=== PATIENT | male | born 1945 | race Caucasian/White ===

== ENCOUNTER 2018-05-15 09:36 | Inpatient (IN) ==
--- NOTE | 2018-05-15 09:52 | ED ---
HPI General Chief Complaint: Chest Pain Stated Complaint: cardiac Time Seen by Provider: 05/15/18 09:43 Source: patient, EMS, RN notes reviewed and old records reviewed Mode of arrival: EMS Limitations: no limitations History of Present Illness HPI narrative: 72-year-old male presents by ambulance with chest pain that started today. He was given aspirin and 1 spray of nitroglycerin and his pain went from a 10 to an 8. He denies any other concurrent complaints. He states he had a stress test 2 months ago that he failed but he was not wanting to get a cardiac catheterization. He states his last cardiac cath was in the 80s. He denies prior history of stent. He states he is anxious about getting cold during a heart catheterization. Quality is pressure. 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 MD complaint: chest pain STEMI Alert: No Onset (ago): hour(s) Duration: constant Onset: during rest Pain location: substernal Severity: moderate Severity scale (1-10): 8 Quality: tightness Pain radiation: none Related Data Home Medications Medication Instructions Recorded Confirmed allopurinol 300 mg PO DAILY 05/15/18 05/15/18 amlodipine 5 mg PO DAILY 05/15/18 05/15/18 atenolol 100 mg PO DAILY 05/15/18 05/15/18 glipizide 5 mg PO DAILY 05/15/18 05/15/18 losartan 100 mg PO DAILY 05/15/18 05/15/18 metformin 1,000 mg PO BID 05/15/18 05/15/18 pravastatin 20 mg PO DAILY 05/15/18 05/15/18 vitamin E 400 unit PO DAILY 05/15/18 05/15/18 Allergies Allergy/AdvReac Type Severity Reaction Status Date / Time penicillin G Allergy Severe Hives Verified 05/15/18 09:39 Review of Systems ROS: all other systems reviewed are negative [facility] Medical History Medical History Diabetes (Acute) Gout (Acute) HTN (hypertension) (Acute) High cholesterol (Acute) Surgical History Surgical History H/O cardiac catheterization (Acute) Social History Social History Second Hand Smoke Exposure: No Smoking Status: Former smoker How Often Do You Have a Drink Containing Alcohol: Never Recent Travel in [place] within the Last 8 Weeks: No Recent Out of Country Travel within the Last 8 Weeks: No Exam Narrative Exam Narrative: GENERAL: 72 y/o male in no apparent distress SKIN: Focused skin assessment warm/dry. HEAD: Atraumatic. Normocephalic. EYES: Pupils equal and round. No scleral icterus. No injection or drainage. ENT: No nasal bleeding or discharge. Mucous membranes pink and moist. NECK: Trachea midline. No JVD. CARDIOVASCULAR: Tachycardic rate and regular rhythm RESPIRATORY: No accessory muscle use. Clear to auscultation. Breath sounds equal bilaterally. GASTROINTESTINAL: Abdomen soft, non-tender, nondistended. MUSCULOSKELETAL: No obvious deformities. No clubbing. No cyanosis. No edema. NEUROLOGICAL: Awake and alert. No obvious cranial nerve deficits. Motor grossly within normal limits. Normal speech. PSYCHIATRIC: Appropriate mood and affect; insight and judgment normal. Course Reevaluation(s) Reevaluation #1: patient now agrees to cath if needed Time: 10:19 Reevaluation #2: dr st here, will dose with 10mg of cardizem and follow Reevaluation #3: Patient updated and agrees to admission. Consultations Consultation #1: dr st states keep npo and dose with 5,00 units of heparin and will see Consultation #2: dr bonilla agrees to admit Initial Documented Vital Signs Temperature 98.3 F 05/15/18 09:42 Pulse Rate 115 H 05/15/18 09:42 Respiratory Rate 18 05/15/18 09:42 Blood Pressure 155/97 H 05/15/18 09:42 Pulse Oximetry 96 05/15/18 09:42 Last Documented Vital Signs Temperature 98.3 F 05/15/18 09:42 Pulse Rate 115 H 05/15/18 09:42 Respiratory Rate 18 05/15/18 09:42 Blood Pressure 155/97 H 05/15/18 09:42 Pulse Oximetry 96 05/15/18 09:46 Critical Care Time Critical Care Time: Yes Total Critical Care Time: 31 Attestation: Aggregate critical care time was 31 minutes. Time to perform other separately billable procedures was not included in the critical care time. My time did not include minutes spent treating any other patients simultaneously or on activities that did not directly contribute to the patient's treatment. The services I provided to this patient were to treat and/or prevent clinically significant deterioration that could result in: mi, I provided critical care services requiring my management, as noted below: Chart data review, documentation time, medication orders and management, vital sign assessments/reviewing monitor data, ordering and reviewing lab tests, ordering and interpreting/reviewing x-rays and diagnostic studies, care of the patient and discussion of the patient with the admitting physicians. Medical Decision Making MDM Narrative Medical decision making narrative: Patient with chest pain at rest with known failed stress test. Will discuss with his web press operator and start workup while placing on nitroglycerin drip. Patient with ST depression. Medical Screen Exam Complete: Yes Emergency Medical Condition: Yes Differential Diagnosis Differential Diagnosis: AK, angina, gastritis Lab Data Lab results reviewed: Yes I reviewed the patient's lab results. Result diagrams: 05/15/18 10:00 05/15/18 10:00 Lab Results 05/15/18 05/15/18 05/15/18 Range/Units 10:00 10:00 10:00 WBC 8.4 (4.0-11.0) th/mm3 RBC 4.77 (4.50-5.90) mil/mm3 Hgb 14.0 (13.0-17.0) gm/dL Hct 41.8 (39.0-51.0) % MCV 87.6 (80.0-100.0) fL MCH 29.4 (27.0-34.0) pg MCHC 33.5 (32.0-36.0) % RDW 13.4 (11.6-17.2) % Plt Count 281 (150-450) th/mm3 MPV 8.4 (7.0-11.0) fL Neut % (Auto) 56.1 (16.0-70.0) % Lymph % (Auto) 27.4 (9.0-44.0) % [place] % (Auto) 13.6 H (0.0-8.0) % Eos % (Auto) 2.6 (0.0-4.0) % Baso % (Auto) 0.3 (0.0-2.0) % Neut # (Auto) 4.7 (1.8-7.7) th/mm3 Lymph # (Auto) 2.3 (1.0-4.8) th/mm3 [place] # (Auto) 1.1 H (0.0-0.9) th/mm3 Eos # (Auto) 0.2 (0.0-0.4) th/mm3 Baso # (Auto) 0.0 (0.0-0.2) th/mm3 WBC Differential . Differential Comment Auto diff final PT 10.5 (9.8-11.6) sec INR 1.0 Ratio APTT 24.0 L (24.3-30.1) sec Sodium 138 (136-145) meq/L Potassium 3.6 (3.5-5.1) meq/L Chloride 104 (98-107) meq/L Carbon Dioxide 22.1 (21.0-32.0) meq/L Anion Gap 12 (5-15) meq/L BUN 20 H (7-18) mg/dL Creatinine 1.22 (0.60-1.30) mg/dL Estimated GFR 59 L (>89) mL/min Random Glucose 212 H (74-106) mg/dL Calcium 9.0 (8.5-10.1) mg/dL Magnesium 1.8 (1.5-2.5) mg/dL Total Bilirubin 0.8 (0.2-1.0) mg/dL AST 18 (15-37) U/L ALT 23 (12-78) U/L Alkaline Phosphatase 69 (45-117) U/L Total Creatine Kinase 109 (39-308) U/L CK-MB (CK-2) 2.9 (0.5-3.6) ng/mL Troponin I 0.11 H (0.02-0.05) ng/mL Total Protein 7.6 (6.4-8.2) g/dL Albumin 3.7 (3.4-5.0) g/dL Imaging Data Attestation: I personally reviewed and interpreted this imaging study as follows : Radiologist's impression: Chest X-Ray 05/15/18 09:44 CONCLUSION: No acute findings. Discharge Plan Discharge Disposition Patient Disposition: 30 Still Patient Discharge Condition Condition: Fair Discharge Details Diagnosis: Unstable angina, Atrial tachycardia Physicians Team ED Provider: Ginette Newman Attending Provider: Mare Bonilla Status ED Status: Admitted Patient
[2018-05-15] MEDS ORDERED: Heparin 10,000 UNITS/10 ML Vial (for IV use) IV.PUSH STA (09:53)
[2018-05-15] MEDS: Nitroglycerin Drip Premix 50 MG/250 ML BOTTLE IV.CONT PRN (10:08)
--- NOTE | 2018-05-15 10:14 | XR ---
EXAM DATE: 05/15/2018 10:03 AM EDT AGE/SEX: 72 years / Male INDICATIONS: Chest pain. CLINICAL DATA: This is the patient's initial encounter. Patient reports that signs and symptoms have been present for 2 days and indicates a pain score of 8/10. MEDICAL/SURGICAL HISTORY: . 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 None. COMPARISON: POI, XR CHEST PA AND LAT, 11/23/2017. . FINDINGS: A single AP view of the chest demonstrates the lungs to be symmetrically aerated without evidence of mass, infiltrate or effusion. Stable linear scarring in the lingula. The cardiomediastinal contours are unremarkable. Osseous structures are intact. CONCLUSION: No acute findings. Electronically signed by: Urban Dickinson MD 05/15/2018 10:13 AM EDT
[2018-05-15 10:32] LABS: Baso % (Auto) 0.3 % (0.0-2.0); Eos # (Auto) 0.2 th/mm3 (0.0-0.4); Eos % (Auto) 2.6 % (0.0-4.0); Hematocrit 41.8 % (39.0-51.0); Lymph # (Auto) 2.3 th/mm3 (1.0-4.8); Lymph % (Auto) 27.4 % (9.0-44.0); Mean Corpuscular HGB Conc 33.5 % (32.0-36.0); Mean Corpuscular Hemoglobin 29.4 pg (27.0-34.0); Mean Corpuscular Volume 87.6 fL (80.0-100.0); Mean Platelet Volume 8.4 fL (7.0-11.0); Mono # (Auto) 1.1 th/mm3 (0.0-0.9); Mono % (Auto) 13.6 % (0.0-8.0); Neut # (Auto) 4.7 th/mm3 (1.8-7.7); Neut % (Auto) 56.1 % (16.0-70.0); Platelet Count 281 th/mm3 (150-450); Red Blood Count 4.77 mil/mm3 (4.50-5.90); Red Cell Distribution Width 13.4 % (11.6-17.2); White Blood Count 8.4 th/mm3 (4.0-11.0)
[2018-05-15 10:41] LABS: Prothrombin Time 10.5 sec (9.8-11.6)
[2018-05-15 10:52] LABS: Alanine Aminotransferase 23 U/L (12-78); Albumin 3.7 g/dL (3.4-5.0); Anion Gap 12 meq/L (5-15); Aspartate Aminotransferase 18 U/L (15-37); Blood Urea Nitrogen 20 mg/dL (7-18); Carbon Dioxide 22.1 meq/L (21.0-32.0); Chloride 104 meq/L (98-107); Glomerular Filtration Rate 59 mL/min (>89); Glucose,Random 212 mg/dL (74-106); Magnesium 1.8 mg/dL (1.5-2.5); Potassium 3.6 meq/L (3.5-5.1); Sodium 138 meq/L (136-145)
[2018-05-15 10:56] LABS: Alkaline Phosphatase 69 U/L (45-117); Creatine Kinase 109 U/L (39-308); Total Protein 7.6 g/dL (6.4-8.2); Troponin I 0.11 ng/mL (0.02-0.05)
[2018-05-15 11:08] LABS: Creatine Kinase MB 2.9 ng/mL (0.5-3.6)
[2018-05-15] MEDS ORDERED: Acetaminophen 325 MG Tablet PO PRN (11:46)
[2018-05-15] MEDS ORDERED: Bisacodyl 10 MG Supp RECTAL PRN (11:46)
[2018-05-15] MEDS ORDERED: Metoprolol Tartrate 25 MG Tablet PO ONE (13:00)
--- NOTE | 2018-05-15 13:11 | P.CONCA ---
History of Present Illness Service: Cardiology Reason for Consult: Chest pain Primary Care Provider: Wendie Sandoval Chief Complaint: Chest pain History of Present Illness: Pleasant 72-year-old well-known to our practice with a past history of chest pain, arm pain, and abdominal pain, hypertension, diabetes, and hyperlipidemia. He reports that he developed mid epigastric pain that radiated to bilateral arms. Patient reports that yesterday a.m. he had similar symptoms after taking his morning medication. On exam patient reports that chest pain has resolved, he is currently on a nitro drip. Denies chest pain or SOB. Patient thinks that symptoms could be related to 1 of his medications (amlodipine) he reports that every time after his AM medication he develops leg swelling and abdominal discomfort, including bloating and excessive gas. Patient had exercise stress test in our office November 2017 where he developed chest pain and arm pain with exercise he was strongly recommended to proceed with cardiac cath, however patient refused he also refused nuclear stress test at that time. Echocardiogram completed in office in October 2017 showed EF of 44%, LVH, LAE, mild MR, mild TR, and septal dyskinesis. On admission patient was tachycardic, on exam telemetry shows SR rate in the 80s. Review of Systems Cardiovascular: Reports chest pain Gastrointestinal: Reports abdominal pain, Reports bloating, Reports excessive passing of gas PMFSH - History History Provided By: Patient - Medical History Medical History: Medical History (Last Reviewed 05/15/18 @ 09:51 by Ginette Newman MD) Diabetes Gout HTN (hypertension) High cholesterol - Surgical History Surgical History: Surgical History (Last Reviewed 05/15/18 @ 09:51 by Ginette Newman MD) H/O cardiac catheterization - Tobacco History Second Hand Smoke Exposure: No Tobacco Use In Past 30 Days: No Smoking Status: Former smoker - Alcohol History How Often Do You Have a Drink Containing Alcohol: Never - Travel History Recent Travel in the [place] Within the Last 8 Weeks: No Recent Travel Out of the Country Within the Last 8 Weeks: No - Immunization History Tetanus Immunization: Unsure Hx Influenza Vaccine This Season: No Medications and Allergies Allergies Allergy/AdvReac Type Severity Reaction Status Date / Time penicillin G Allergy Severe Hives Verified 05/15/18 09:39 Home Medications Medication Instructions Recorded Confirmed Type allopurinol 300 mg PO DAILY 05/15/18 05/15/18 History amlodipine 5 mg PO DAILY 05/15/18 05/15/18 History atenolol 100 mg PO DAILY 05/15/18 05/15/18 History glipizide 5 mg PO DAILY 05/15/18 05/15/18 History losartan 100 mg PO DAILY 05/15/18 05/15/18 History metformin 1,000 mg PO BID 05/15/18 05/15/18 History pravastatin 20 mg PO DAILY 05/15/18 05/15/18 History vitamin E 400 unit PO DAILY 05/15/18 05/15/18 History Active Medications: Active Medications Acetaminophen (Tylenol) 650 mg PO Q4H PRN PRN Reason: Headache, fever, pain 1-4 Al Hydroxide/Mg Hydroxide (Milk Of Magnesia Liq) 30 ml PO Q12H PRN PRN Reason: Mild Constipation Aspirin (Ecotrin) 81 mg PO DAILY BARBI Atorvastatin Calcium (Lipitor) 40 mg PO HS BARBI Atorvastatin Calcium (Lipitor) 40 mg PO ONCE ONE Stop: 05/15/18 13:01 Bisacodyl (Dulcolax Supp) 10 mg RECTAL DAILY PRN PRN Reason: SEVERE CONSITIPATION Nitroglycerin/Dextrose (Nitroglycerin Drip Premix) 50 mg in 250 mls @ 1.5 mls/ hr IV.CONT TITRATE PRN; Protocol PRN Reason: See Protocol Last Admin: 05/15/18 10:08 Dose: 5 mcg/min, 1.5 mls/hr Lactulose (Lactulose Liq) 30 ml PO DAILY PRN PRN Reason: SEVERE CONSITIPATION Losartan Potassium (Cozaar) 100 mg PO DAILY BARBI Metoprolol Tartrate (Lopressor) 25 mg PO BID BARBI Metoprolol Tartrate (Lopressor) 25 mg PO ONCE ONE Stop: 05/15/18 13:01 Ondansetron HCl (Zofran Inj) 4 mg IV.PUSH Q6H PRN PRN Reason: NAUSEA OR VOMITING Sennosides (Senokot) 17.2 mg PO Q12H PRN PRN Reason: Moderate Constipation Sodium Chloride (Ns Flush) 2 ml IV.FLUSH UNSCH PRN PRN Reason: FLUSH AFTER USING IV ACCESS Exam Vital signs: Vital Signs 05/15/18 09:42 05/15/18 09:46 Temperature 98.3 F Pulse Rate 115 H Respiratory Rate 18 Blood Pressure 155/97 H Pulse Oximetry 96 96 Intake & Output 05/14/18 05/15/18 05/15/18 18:59 06:59 18:59 Weight 105.233 kg - Constitutional no acute distress - Routine HEENT Exam Head: Present: normocephalic, atraumatic Eye: Present: PERRL, normal accommodation ENT: Present: mucous membranes moist - Routine Neck Exam Present: supple - Routine Respiratory Exam Present: CTA bilaterally - Routine Cardiovascular Exam Present: RRR - Routine Abdominal Exam Present: soft - Routine Skin Exam Present: intact - Routine Neurological Exam Present: alert, oriented X3 Results 05/15/18 10:00 05/15/18 10:00 Cardiac Enzymes 05/15/18 Range/Units 10:00 AST 18 (15-37) U/L CK-MB (CK-2) 2.9 (0.5-3.6) ng/mL Troponin I 0.11 H (0.02-0.05) ng/mL Coagulation 05/15/18 Range/Units 10:00 PT 10.5 (9.8-11.6) sec APTT 24.0 L (24.3-30.1) sec CBC 05/15/18 Range/Units 10:00 WBC 8.4 (4.0-11.0) th/mm3 RBC 4.77 (4.50-5.90) mil/mm3 Hgb 14.0 (13.0-17.0) gm/dL Hct 41.8 (39.0-51.0) % Plt Count 281 (150-450) th/mm3 Neut # (Auto) 4.7 (1.8-7.7) th/mm3 Lymph # (Auto) 2.3 (1.0-4.8) th/mm3 [place] # (Auto) 1.1 H (0.0-0.9) th/mm3 Eos # (Auto) 0.2 (0.0-0.4) th/mm3 Baso # (Auto) 0.0 (0.0-0.2) th/mm3 Comprehensive Metabolic Panel 05/15/18 Range/Units 10:00 Sodium 138 (136-145) meq/L Potassium 3.6 (3.5-5.1) meq/L Chloride 104 (98-107) meq/L Carbon Dioxide 22.1 (21.0-32.0) meq/L BUN 20 H (7-18) mg/dL Creatinine 1.22 (0.60-1.30) mg/dL Calcium 9.0 (8.5-10.1) mg/dL AST 18 (15-37) U/L ALT 23 (12-78) U/L Alkaline Phosphatase 69 (45-117) U/L Total Protein 7.6 (6.4-8.2) g/dL Albumin 3.7 (3.4-5.0) g/dL Intake and Output 05/14/18 05/15/18 05/15/18 22:59 06:59 14:59 Other: Weight 105.233 kg Patient Weight 05/16/18 06:59 Weight 105.233 kg Assessment and Plan - Plan Assessment Chest pain New onset Atrial flutter HTN Hyperlipidemia Plan Currently on nitro drip-chest pain free. 1st troponin 0.11, 2nd pending. Pt is on ASA, BB and statin. Discussed possible cath tomorrow. Patient is reluctant? Patient received Cardizem 10mg on arrival. Telemetry currently shows SR rate in the 80s. Will hold off on anticoagulation at this time, pending possible heart cath. BP is elevated. Will resume home Losartan. On Statin. The patient was seen and evaluated by Dr. Anaya who completed a [id number] encounter physical exam and participated in care and management and decision making. The exam, history, and the medical decision-making described in the above note were completed with the assistance of the mid-level provider. I reviewed and agree with the findings presented. I attest that I had a [id number] encounter with the patient on the same day, and personally performed and documented my assessment and findings in the medical record. Pt has had a NSTEMI will proceed with cath, risks of cath stroke bleeding foreseen complications reviewed in detail. Will proceed in AM. Code Status: Full Code Discussed Condition With: Nurse and Dr. Newman.
[2018-05-15] MEDS ORDERED: Heparin Drip 25,000 UNIT/250 ML BAG IV.CONT PRN (16:33)
[2018-05-15] MEDS ORDERED: Sod Chloride 0.9% Inj 1,000 ML IV.CONT SCH (17:00)
[2018-05-15 17:30] LABS: Prothrombin Time 10.4 sec (9.8-11.6)
--- NOTE | 2018-05-15 17:57 | P.HP ---
History of Present Illness Service: Hospitalist Primary Care Physician: Wendie Sandoval Chief Complaint: Chest pain History of Present Illness: Ms. June is a pleasant 72 year old male with a history of HTN, DM, hyperlipidemia who presents to the ED due to epigastric discomfort with radiation to bilateral upper extremities. He denies any nausea, vomiting, sweating. He underwent cardiac stress test 2 months ago that was positive. He was offered cardiac catheterization. However he is anxious about catheterization and thus refused. Patient denies abdominal pain, changes in bowel or bladder habits. Upon arrival his troponin was 0.11. However subsequently his troponins were increased to 12.0 and 18.20. Cardiology evaluated patient and recommended heparin drip and cardiac catheterization on . Past medical history: Diabetes mellitus, hypertension, hyperlipidemia Past surgical history: Hernia surgery Social history: Patient denies using tobacco, alcohol, illicit drugs. Family history: Mother had liver cancer. Dad had stomach cancer. - Diagnosis (1) NSTEMI (non-ST elevated myocardial infarction) Inpatient Certification: I certify that the inpatient services were ordered in accordance with Medicare regulations governing the order. This includes certification that hospital inpatient services are reasonable and necessary and in the case of services not specified as inpatient-only under 42 CFR 419.22(n), that they are appropriately provided as inpatient services in accordance to with the 2-midnight benchmark under 43 CFR 412.3(e) Estimated Total Length of Stay (Days): 2 Plans for Post Hospital Care: Home [facility] - History History Provided By: Patient - Medical History Medical History: Medical History (Last Reviewed 05/15/18 @ 09:51 by Ginette Newman MD) Diabetes Gout HTN (hypertension) High cholesterol - Surgical History Surgical History: Surgical History (Last Reviewed 05/15/18 @ 09:51 by Ginette Newman MD) H/O cardiac catheterization - Tobacco History Second Hand Smoke Exposure: No Tobacco Use In Past 30 Days: No Smoking Status: Former smoker - Alcohol History How Often Do You Have a Drink Containing Alcohol: Never - Substance Use History Substance History: No History of Abuse - Travel History Recent Travel in the [place] Within the Last 8 Weeks: No Recent Travel Out of the Country Within the Last 8 Weeks: No - Immunization History Tetanus Immunization: Unsure Hx Influenza Vaccine This Season: No Medications and Allergies Active Medications: Active Medications Acetaminophen (Tylenol) 650 mg PO Q4H PRN PRN Reason: Headache, fever, pain 1-4 Al Hydroxide/Mg Hydroxide (Milk Of Magnesia Liq) 30 ml PO Q12H PRN PRN Reason: Mild Constipation Aspirin (Ecotrin) 81 mg PO DAILY [facility] Last Admin: 05/15/18 13:37 Dose: 81 mg Atorvastatin Calcium (Lipitor) 40 mg PO HS [facility] Bisacodyl (Dulcolax Supp) 10 mg RECTAL DAILY PRN PRN Reason: SEVERE CONSITIPATION Nitroglycerin/Dextrose (Nitroglycerin Drip Premix) 50 mg in 250 mls @ 1.5 mls/ hr IV.CONT TITRATE PRN; Protocol PRN Reason: See Protocol Last Titration: 05/15/18 15:50 Dose: 10 mcg/min, 3 mls/hr Heparin Sodium/Dextrose (Heparin/D5w 25,000 U/250 Ml) 25,000 unit in 250 mls @ 0 mls/hr IV.CONT TITRATE PRN; Protocol PRN Reason: Per Protocol Stop: 05/16/18 06:00 Last Admin: 05/15/18 17:21 Dose: 1,000 units/hr, 10 mls/hr Sodium Chloride (Ns Inj) 1,000 mls @ 30 mls/hr IV.CONT .Q24H [facility] Lactulose (Lactulose Liq) 30 ml PO DAILY PRN PRN Reason: SEVERE CONSITIPATION Losartan Potassium (Cozaar) 100 mg PO DAILY [facility] Metoprolol Tartrate (Lopressor) 25 mg PO BID [facility] Ondansetron HCl (Zofran Inj) 4 mg IV.PUSH Q6H PRN PRN Reason: NAUSEA OR VOMITING Sennosides (Senokot) 17.2 mg PO Q12H PRN PRN Reason: Moderate Constipation Sodium Chloride (Ns Flush) 2 ml IV.FLUSH UNSCH PRN PRN Reason: FLUSH AFTER USING IV ACCESS Allergies Allergy/AdvReac Type Severity Reaction Status Date / Time penicillin G Allergy Severe Hives Verified 05/15/18 09:39 Home Medications Medication Instructions Recorded Confirmed Type allopurinol 300 mg PO DAILY 05/15/18 05/15/18 History amlodipine 5 mg PO DAILY 05/15/18 05/15/18 History atenolol 100 mg PO DAILY 05/15/18 05/15/18 History glipizide 5 mg PO DAILY 05/15/18 05/15/18 History losartan 100 mg PO DAILY 05/15/18 05/15/18 History metformin 1,000 mg PO BID 05/15/18 05/15/18 History pravastatin 20 mg PO DAILY 05/15/18 05/15/18 History vitamin E 400 unit PO DAILY 05/15/18 05/15/18 History Exam Vital signs: Vital Signs 05/15/18 09:42 05/15/18 09:46 05/15/18 11:30 Temperature 98.3 F Pulse Rate 115 H 92 H Respiratory Rate 18 Blood Pressure 155/97 H 154/81 H Pulse Oximetry 96 96 98 05/15/18 11:46 05/15/18 13:56 05/15/18 14:00 Temperature Pulse Rate 78 77 78 Respiratory Rate 16 18 16 Blood Pressure 158/87 H 160/83 H 158/88 H Pulse Oximetry 95 97 05/15/18 16:00 Temperature 98.1 F Pulse Rate 74 Respiratory Rate 18 Blood Pressure 159/86 H Pulse Oximetry 98 Intake & Output 05/14/18 05/15/18 05/15/18 18:59 06:59 18:59 Output Total 450 / 450 Balance -450 / -450 Weight 105.233 kg Output: Urine 450 / 450 Narrative: GENERAL: This is a well-nourished, well-developed patient, in no apparent distress. SKIN: No rashes, ecchymoses or lesions. Warm and dry. HEAD: Atraumatic. Normocephalic. No temporal or scalp tenderness. EYES: Pupils equal round and reactive. No injection or drainage. ENT: Nose without bleeding, purulent drainage or septal hematoma. Airway patent. NECK: Trachea midline. No lymphadenopathy. Supple, nontender, no meningeal signs. CARDIOVASCULAR: Regular rate and rhythm without murmurs, gallops, or rubs. No JVD. RESPIRATORY: Clear to auscultation. Breath sounds equal bilaterally. No wheezes , rales, or rhonchi. GASTROINTESTINAL: Abdomen soft, non-tender, nondistended. No guarding. MUSCULOSKELETAL: Extremities without clubbing, cyanosis, or edema. NEUROLOGICAL: Awake and alert. Cranial nerves II through XII intact. No focal neurological deficits. Normal speech. Results - Labs CBC & Chem 7: 05/16/18 04:54 05/16/18 04:54 Labs: Laboratory Results - last 24 hr 05/15/18 05/15/18 05/15/18 10:00 10:00 10:00 WBC 8.4 RBC 4.77 Hgb 14.0 Hct 41.8 MCV 87.6 MCH 29.4 MCHC 33.5 RDW 13.4 Plt Count 281 MPV 8.4 Neut % (Auto) 56.1 Lymph % (Auto) 27.4 Gove % (Auto) 13.6 H Eos % (Auto) 2.6 Baso % (Auto) 0.3 Neut # (Auto) 4.7 Lymph # (Auto) 2.3 Gove # (Auto) 1.1 H Eos # (Auto) 0.2 Baso # (Auto) 0.0 WBC Differential . Differential Comment Auto diff final PT 10.5 INR 1.0 APTT 24.0 L Sodium 138 Potassium 3.6 Chloride 104 Carbon Dioxide 22.1 Anion Gap 12 BUN 20 H Creatinine 1.22 Estimated GFR 59 L POC Glucose Random Glucose 212 H Calcium 9.0 Magnesium 1.8 Total Bilirubin 0.8 AST 18 ALT 23 Alkaline Phosphatase 69 Total Creatine Kinase 109 CK-MB (CK-2) 2.9 Troponin I 0.11 H Total Protein 7.6 Albumin 3.7 05/15/18 05/15/18 05/15/18 15:21 16:16 16:54 WBC RBC Hgb Hct MCV MCH MCHC RDW Plt Count MPV Neut % (Auto) Lymph % (Auto) Gove % (Auto) Eos % (Auto) Baso % (Auto) Neut # (Auto) Lymph # (Auto) Gove # (Auto) Eos # (Auto) Baso # (Auto) WBC Differential Differential Comment PT 10.4 INR 1.0 APTT 25.0 Sodium Potassium Chloride Carbon Dioxide Anion Gap BUN Creatinine Estimated GFR POC Glucose 187 H Random Glucose Calcium Magnesium Total Bilirubin AST ALT Alkaline Phosphatase Total Creatine Kinase CK-MB (CK-2) Troponin I 12.00 H* Total Protein Albumin - Imaging Impressions Chest X-Ray 05/15/18 09:44 CONCLUSION: No acute findings. Caprini VTE Risk Assessment Caprini VTE Risk Assessment: Moderate/High Risk (score >= 2) Caprini Risk Assessment Model: Point Value = 1 Point Value = 2 Point Value = 3 Point Value = 5 Age 41-60 Minor surgery BMI > 25 kg/m2 Swollen legs Varicose veins or History of unexplained or recurrent spontaneous Oral contraceptives or hormone replacement Sepsis (< 1 month) Serious lung disease, including pneumonia (< 1 month) Abnormal pulmonary function Acute myocardial infarction Congestive heart failure (< 1 month) History of inflammatory bowel disease Medical patient at bed rest Age 61-74 Arthroscopic surgery Major open surgery (> 45 min) Laparoscopic surgery (> 45 min) Malignancy Confined to bed (> 72 hours) Immobilizing plaster cast Central venous access Age >= 75 History of VTE Family history of VTE Factor V Leiden Prothrombin [id number] Lupus anticoagulant Anticardiolipin antibodies Elevated serum homocysteine Heparin-induced thrombocytopenia Other congenital or acquired thrombophilia Stroke (< 1 month) Elective arthroplasty Hip, pelvis, or leg fracture Acute spinal cord injury (< 1 month) Prophylaxis Regimen: Total Risk Factor Score Risk Level Prophylaxis Regimen 0-1 Low Early ambulation 2 Moderate Order ONE of the following: *Sequential Compression Device (SCD) *Heparin 5000 units SQ BID 3-4 Higher Order ONE of the following medications: *Heparin 5000 units SQ TID *Enoxaparin/Lovenox 40 mg SQ daily (WT < 150 kg, CrCl > 30 mL/min) *Enoxaparin/Lovenox 30 mg SQ daily (WT < 150 kg, CrCl > 10-29 mL/min) *Enoxaparin/Lovenox 30 mg SQ BID (WT < 150 kg, CrCl > 30 mL/min) AND/OR *Sequential Compression Device (SCD) 5 or more Highest Order ONE of the following medications: *Heparin 5000 units SQ TID (Preferred with Epidurals) *Enoxaparin/Lovenox 40 mg SQ daily (WT < 150 kg, CrCl > 30 mL/min) *Enoxaparin/Lovenox 30 mg SQ daily (WT < 150 kg, CrCl > 10-29 mL/min) *Enoxaparin/Lovenox 30 mg SQ BID (WT < 150 kg, CrCl > 30 mL/min) AND *Sequential Compression Device (SCD) Assessment and Plan - Assessment (1) NSTEMI (non-ST elevated myocardial infarction) Code(s): I21.4 - Non-ST elevation (NSTEMI) myocardial infarction Status: Acute - Plan Mr. June is a pleasant 72-year-old male with a history of diabetes mellitus, hypertension, hyperlipidemia who presents to the emergency department due to chest discomfort and radiation to his arms. Troponins were elevated on admission. NSTEMI - troponins elevated to 0.11, 12, 18. - Heparin drip - Dr. Anaya plans to do cardiac cath on 05/16/2018 - Continue aspirin 81 mg daily, atorvastatin 40 mg nightly, losartan 100 mg daily. Continue Beta keiht. - Continue nitroglycerin. Hypertension -Continue losartan. We may switch beta-keith to carvedilol to have additional antihypertensive effect. Full code. Heparin drip.
[2018-05-15] MEDS: Metoprolol Tartrate 25 MG Tablet PO SCH (20:27)
--- NOTE | 2018-05-15 20:54 | ECG ---
Date Performed: 05/15/2018 Time Performed: 09:42:42 PTAGE: 72 years EKG: NORMAL Sinus rhythm WITH SINUS TACHYCARDIA NONSPECIFIC ST & T-WAVE ABNORMALITY ABNORMAL RHYTHM ECG PREVIOUS TRACING : 05/15/2018 09.41 Compared to previous tracing,sinus tachycardia sre new. The nonspecific ST-T wave changes are new except for the T-wave inversion in lead aVL which is infact re solved. The QT interval is now prolonged forthe heart rate. sop eclude electyrolyte imbalance and eva cardial disease. Clinical correlation is recommended. DOCTOR: Delfina Blanchard Interpretating Date/Time 05/15/2018 20:53:17
[2018-05-16 05:20] LABS: Hematocrit 43.2 % (39.0-51.0); Hemoglobin 14.6 gm/dL (13.0-17.0); Mean Corpuscular HGB Conc 33.8 % (32.0-36.0); Mean Corpuscular Hemoglobin 29.6 pg (27.0-34.0); Mean Corpuscular Volume 87.4 fL (80.0-100.0); Platelet Count 281 th/mm3 (150-450); Red Blood Count 4.95 mil/mm3 (4.50-5.90); Red Cell Distribution Width 13.6 % (11.6-17.2); White Blood Count 9.9 th/mm3 (4.0-11.0)
[2018-05-16 05:52] LABS: Calcium 8.9 mg/dL (8.5-10.1); Carbon Dioxide 25.9 meq/L (21.0-32.0); Potassium 4.1 meq/L (3.5-5.1)
[2018-05-16 06:02] LABS: Free T4 (Free Thyroxine) 1.12 ng/dL (0.76-1.46); Thyroid Stimulating Hormone 1.15 uIU/mL (0.358-3.740)
--- NOTE | 2018-05-16 08:22 | ECG ---
Date Performed: 05/15/2018 Time Performed: 14:50:16 PTAGE: 72 years EKG: Sinus rhythm WITH FIRST DEGREE AV BLOCK NONSPECIFIC ST & T-WAVE ABNORMALITY Compared to previous tracing the hilda ent is no longer tachycardic ABNORMAL ECG PREVIOUS TRACING : 05/15/2018 09.42 DOCTOR: Antonieta Yao Interpretating Date/Time 05/16/2018 08:22:24
--- NOTE | 2018-05-16 08:23 | ECG ---
Date Performed: 05/15/2018 Time Performed: 21:12:10 PTAGE: 72 years EKG: Sinus rhythm with 1st degree A-V block Possible inferior infarct - age undetermined Lateral ST-T changes are nons pecific Since the previous tracing, no significant change noted Abnormal ECG PREVIOUS TRACING : 05/15/18@14:50 DOCTOR: Antonieta Yao Interpretating Date/Time 05/16/2018 08:22:46
[2018-05-16] MEDS ORDERED: ALPRAZolam 0.25 MG Tablet PO ONE (10:00)
--- NOTE | 2018-05-16 10:18 | P.PNCA ---
Subjective Interval history: Patient lying in bed, denies any cardiac complaints overnight. Continues on Nitro drip, heparin drip DCd this AM, pending cardiac catheterization today. Discussed procedure on detail with patient. He reports feeling very anxious. Physical Exam Vital signs: Vital Signs 05/15/18 11:30 05/15/18 11:46 05/15/18 13:56 Temperature Pulse Rate 92 H 78 77 Respiratory Rate 16 18 Blood Pressure 154/81 H 158/87 H 160/83 H Pulse Oximetry 98 95 05/15/18 14:00 05/15/18 16:00 05/15/18 19:00 Temperature 98.1 F Pulse Rate 78 74 80 Respiratory Rate 16 18 Blood Pressure 158/88 H 159/86 H Pulse Oximetry 97 98 05/15/18 20:00 05/15/18 21:00 05/15/18 22:00 Temperature 98 F Pulse Rate 75 74 75 Respiratory Rate 20 Blood Pressure 151/90 H Pulse Oximetry 97 05/15/18 23:00 05/16/18 00:00 05/16/18 01:00 Temperature 97.8 F Pulse Rate 75 70 87 Respiratory Rate 20 Blood Pressure 159/94 H Pulse Oximetry 70 L 05/16/18 02:00 05/16/18 03:00 05/16/18 03:49 Temperature 98.4 F Pulse Rate 85 65 71 Respiratory Rate 20 Blood Pressure 138/82 Pulse Oximetry 96 05/16/18 05:00 05/16/18 05:56 05/16/18 07:00 Temperature Pulse Rate 81 69 70 Respiratory Rate Blood Pressure Pulse Oximetry 05/16/18 08:00 Temperature 98.7 F Pulse Rate 70 Respiratory Rate 15 Blood Pressure 158/92 H Pulse Oximetry 96 Intake & Output 05/15/18 05/16/18 05/16/18 18:59 06:59 18:59 Intake Total 960 / 960 Output Total 450 / 450 1300 / 1300 Balance -450 / -450 -340 / -340 Weight 105.233 kg Intake: Oral 960 / 960 Output: Urine 450 / 450 1300 / 1300 Other: Date of Last Bowel Movement 05/14/18 - Constitutional no acute distress - Routine HEENT Exam Head: Present: normocephalic, atraumatic Eye: Present: PERRL, normal accommodation ENT: Present: mucous membranes moist - Routine Neck Exam Present: supple - Routine Respiratory Exam Present: CTA bilaterally - Routine Cardiovascular Exam Present: RRR - Routine Abdominal Exam Present: soft - Routine Skin Exam Present: intact - Routine Neurological Exam Present: alert, oriented X3 - Detailed Neurological Exam: Coma Scale Eye Opening: Spontaneous Verbal Response: Oriented Motor Response: Obey commands Ron Coma Scale Total: 15 - Routine Psychiatric Exam Present: normal affect Assessment and Plan - Plan Assessment NSTEMI New onset Atrial flutter HTN Hyperlipidemia Plan Pending heart cath today. Continues on nitro drip. Isolated episode. Converted with Cardizem. Will hold off on anticoagulation at this time, pending cath today. BP continues to be elevated. Will increase metoprolol. On Statin. The patient was seen and evaluated by Dr. Anaya who completed a [id number] encounter physical exam and participated in care and management and decision making. The exam, history, and the medical decision-making described in the above note were completed with the assistance of the mid-level provider. I reviewed and agree with the findings presented. I attest that I had a [id number] encounter with the patient on the same day, and personally performed and documented my assessment and findings in the medical record. Pt has had a NSTEMI will proceed with cath, risks of cath stroke bleeding foreseen complications reviewed in detail. Will proceed in AM.
[2018-05-16] MEDS: Metoprolol Tartrate 50 MG Tablet PO SCH ×2 (10:20→22:10)
[2018-05-16] MEDS: Metoprolol Tartrate 25 MG Tablet PO SCH (10:21)
--- NOTE | 2018-05-16 12:07 | P.PN ---
Subjective Interval history: Follow-up for NSTEMI. Patient denies any chest pain, shortness of breath, fever or chills. However he feels anxious about cardiac catheterization. Physical Exam Vital signs: Vital Signs 05/15/18 13:56 05/15/18 14:00 05/15/18 16:00 Temperature 98.1 F Pulse Rate 77 78 74 Respiratory Rate 18 16 18 Blood Pressure 160/83 H 158/88 H 159/86 H Pulse Oximetry 97 98 05/15/18 19:00 05/15/18 20:00 05/15/18 21:00 Temperature 98 F Pulse Rate 80 75 74 Respiratory Rate 20 Blood Pressure 151/90 H Pulse Oximetry 97 05/15/18 22:00 05/15/18 23:00 05/16/18 00:00 Temperature 97.8 F Pulse Rate 75 75 70 Respiratory Rate 20 Blood Pressure 159/94 H Pulse Oximetry 70 L 05/16/18 01:00 05/16/18 02:00 05/16/18 03:00 Temperature Pulse Rate 87 85 65 Respiratory Rate Blood Pressure Pulse Oximetry 05/16/18 03:49 05/16/18 05:00 05/16/18 05:56 Temperature 98.4 F Pulse Rate 71 81 69 Respiratory Rate 20 Blood Pressure 138/82 Pulse Oximetry 96 05/16/18 07:00 05/16/18 08:00 05/16/18 10:00 Temperature 98.7 F Pulse Rate 70 70 68 Respiratory Rate 15 Blood Pressure 158/92 H Pulse Oximetry 96 05/16/18 11:00 05/16/18 11:45 Temperature 97.7 F Pulse Rate 84 Respiratory Rate 16 Blood Pressure 151/92 H Pulse Oximetry 97 97 Intake & Output 05/15/18 05/16/18 05/16/18 18:59 06:59 18:59 Intake Total 960 / 960 Output Total 450 / 450 1300 / 1300 Balance -450 / -450 -340 / -340 Weight 105.233 kg Intake: Oral 960 / 960 Output: Urine 450 / 450 1300 / 1300 Other: Date of Last Bowel Movement 05/14/18 Narrative: GENERAL: Alert, oriented 3, NAD. Somewhat anxious. SKIN: Warm and dry. HEAD: Normocephalic. EYES: No scleral icterus. No injection or drainage. NECK: Supple, trachea midline. No JVD or lymphadenopathy. CARDIOVASCULAR: Regular rate and rhythm without murmurs, gallops, or rubs. RESPIRATORY: Breath sounds equal bilaterally. No accessory muscle use. GASTROINTESTINAL: Abdomen soft, non-tender, nondistended. MUSCULOSKELETAL: No cyanosis, or edema. BACK: Nontender without obvious deformity. No CVA tenderness. Results - Labs CBC & Chem 7: 05/16/18 04:54 05/16/18 04:54 Laboratory Results - last 24 hr 05/15/18 05/15/18 05/15/18 15:21 16:16 16:54 WBC RBC Hgb Hct MCV MCH MCHC RDW Plt Count MPV PT 10.4 INR 1.0 APTT 25.0 Sodium Potassium Chloride Carbon Dioxide Anion Gap BUN Creatinine Estimated GFR POC Glucose 187 H Random Glucose Calcium Troponin I 12.00 H* TSH Free T4 05/15/18 05/15/18 05/16/18 20:47 22:25 00:18 WBC RBC Hgb Hct MCV MCH MCHC RDW Plt Count MPV PT INR APTT 27.9 Sodium Potassium Chloride Carbon Dioxide Anion Gap BUN Creatinine Estimated GFR POC Glucose 246 H Random Glucose Calcium Troponin I 18.20 H* TSH Free T4 05/16/18 05/16/18 05/16/18 00:19 04:54 04:54 WBC 9.9 RBC 4.95 Hgb 14.6 Hct 43.2 MCV 87.4 MCH 29.6 MCHC 33.8 RDW 13.6 Plt Count 281 MPV 8.0 PT INR APTT Sodium 138 Potassium 4.1 Chloride 103 Carbon Dioxide 25.9 Anion Gap 9 BUN 19 H Creatinine 1.19 Estimated GFR 60 L POC Glucose 227 H Random Glucose 244 H Calcium 8.9 Troponin I TSH 1.150 Free T4 1.12 05/16/18 05/16/18 05/16/18 04:54 05:47 11:26 WBC RBC Hgb Hct MCV MCH MCHC RDW Plt Count MPV PT INR APTT 28.7 Sodium Potassium Chloride Carbon Dioxide Anion Gap BUN Creatinine Estimated GFR POC Glucose 249 H 245 H Random Glucose Calcium Troponin I TSH Free T4 Assessment and Plan - Assessment (1) NSTEMI (non-ST elevated myocardial infarction) Code(s): I21.4 - Non-ST elevation (NSTEMI) myocardial infarction Status: Acute - Plan Mr. June is a pleasant 72-year-old male with a history of diabetes mellitus, hypertension, hyperlipidemia who presents to the emergency department due to chest discomfort and radiation to his arms. Troponins were elevated on admission. NSTEMI - troponins elevated to 0.11, 12, 18. - Heparin drip - Dr. Anaya plans to do cardiac cath today 05/16/2018 - Currently on 50mg BID. - Continue aspirin 81 mg daily, atorvastatin 40 mg nightly, losartan 100 mg daily. - Continue nitroglycerin. Hypertension -Continue losartan. We may consider switching beta-keith to carvedilol to have additional antihypertensive effect. Full code. Heparin drip.
[2018-05-16] MEDS ORDERED: Heparin/NS PF Inj 1,000 ML ONE (12:43)
[2018-05-16] MEDS ORDERED: fentaNYL Citrate Inj 100 MCG/2 ML Ampul ONE (12:55)
--- NOTE | 2018-05-16 14:15 | MP ---
cc: Kibmerly Anaya MD, Souheil MD DATE OF OPERATION: CARDIAC CATHETERIZATION REPORT INDICATIONS FOR CATHETERIZATION: Non-STEMI with a markedly elevated troponin, chest pain. CONSENT: Full informed consent was obtained for our procedure. The risks of , bleeding, myocardial perforation, aspiration, foreseen and unforeseen complications were reviewed. The patient fully appeared to understand the risks. PROCEDURES: 1. Sedation. 2. Cardiac catheterization. PROCEDURE IN DETAIL: The patient was draped and prepped in usual manner. Right femoral artery was entered using a micropuncture technique with ultrasound to establish the vessel patency via the 4-Cymraes sheath. Left and right coronary catheters were used to intubate the left and right coronaries. Pigtail catheter in the left ventricle. Multiple angiographic views were carried out. At the end of the catheterization procedure, all catheters and sheaths were removed. Manual pressure applied with good hemostasis achieved and the patient returned to her room in stable condition. SEDATION: Sedation was given including Versed and fentanyl. FINDINGS: HEMODYNAMICS: The aortic pressure was 136/72, mean of 98. The left ventricular pressure was 139 with a left ventricular end-diastolic pressure of 17. There was no evidence of significant gradient on pullback across the LV outflow tract and aortic valve. LEFT VENTRICULOGRAM: The overall left ventricular ejection fraction was reduced, estimated in the 40% range. There was evidence of inferior basilar akinesis. CORONARIES: Left main was a large and free of significant disease. The left anterior descending artery was calcified proximally. In the mid LAD was a complex 90% stenosis. The remainder of the vessel was large. There was also a large first diagonal branch that had a 90% stenosis proximally. In the proximal LAD was a further 90% stenosis. There was a large first obtuse marginal branch with an 80% long stenosis proximally and in the mid section a further 99% stenosis. The second obtuse marginal branch was a large vessel and was free of significant disease. There was evidence of filling of the distal right posterior descending artery via multiple collaterals from the left system. There was a very small intermediate ramus/very early obtuse marginal branch noted without significant disease. The right coronary artery was totally occluded proximally and filled distally via multiple injections. CONCLUSION: High-grade left anterior descending disease involving the proximal left anterior descending and the mid left anterior descending; high-grade obtuse marginal-1 disease, ostial disease of the obtuse marginal branch with high-grade mid obtuse marginal disease, total occlusion of the right coronary with filling of the distal right posterior descending artery. PLAN: Bypass surgery to the LAD, diagonal, first obtuse marginal branch and distal right/PDA. We will also, consider atrial flutter ablation and left atrial appendage ablation. Case discussed with Dr. Renita Leonard. MD ROB Barriga/jasvir , 01:46 PM , 01:56 PM
[2018-05-16] MEDS ORDERED: Iohexol 350 MG/ML 100 ML Vial (for Cath Lab) IV.SIG ONE (14:48)
[2018-05-16] MEDS ORDERED: Dextrose 50% in Water 50 ML Vial IV.PUSH PRN (16:30)
[2018-05-16] MEDS ORDERED: Chlorhexidine 4% Topical 120 APPLIC/120 ML Bottle TOPICAL SCH (16:45)
[2018-05-16] MEDS ORDERED: Sodium Chloride 0.9% Irr Bot 1,000 ML, Vancomycin Inj 1,000 MG IRRIGATION SCH ×2 (17:00)
[2018-05-16] MEDS ORDERED: Sodium Chlor 0.9% Inj 77.5 ML, Papaverine Inj 60 MG, Nitroglycerin Inj 100 MCG, dilTIAZ... IRRIGATION SCH ×3 (17:00)
[2018-05-16] MEDS ORDERED: Insulin Regular (For Infusion) 100 UNIT in Sodium Chlor 0.9% Inj 99 ML IV.CONT PRN ×4 (17:00)
[2018-05-16] MEDS ORDERED: Vancomycin Inj 1,750 MG in Sodium Chlor 0.9% Inj 500 ML IV.SIG SCH (17:00)
[2018-05-16 17:56] LABS: Activated Partial Thrombo Time 25.4 sec (24.3-30.1); INR 1.1 Ratio; Prothrombin Time 10.7 sec (9.8-11.6)
[2018-05-16] MEDS: Insulin NovoLOG Aspart Correctional Sugar Inj SQ SCH ×2 (19:00→23:29)
--- NOTE | 2018-05-16 20:54 | US ---
EXAM DATE: 05/16/2018 7:35 PM EDT AGE/SEX: 72 years / Male INDICATIONS: Syncope and weakness. CLINICAL DATA: This is the patient's initial encounter. Patient reports that signs and symptoms have been present for 1 day and indicates a pain score of 0/10. MEDICAL/SURGICAL HISTORY: Diabetes. Hypercholesterolemia. Hypertension. Gout. . Cardiac cat heterization. COMPARISON: No prior exams available for comparison. VELOCITY PARAMETERS: ICA/CCA Ratio: Right 0.8 , Left 0.6 ICA: Right 72.1 cm/sec, Left 60.3 cm/sec CCA: Right 85.5 cm/sec, Left 109.2 cm/sec ECA: Right 100.1 cm/sec, Left 72.0 cm/sec Vertebral: Right 36.7 cm/sec antegrade, Left 47.6 cm/sec antegrade FINDINGS: Right Carotid: Mild arteriosclerotic plaque is visualized.The waveforms are within normal limits. Left Carotid: Mild arteriosclerotic plaque is visualized. The waveforms are within normal limits. Other: None. CONCLUSION: 1. Right Internal Carotid Artery: Mild visible plaque without hemodynamically significant stenosis. 2. Left Internal Carotid Artery: Mild visible plaque without hemodynamically significant stenosis. Electronically signed by: Ru Simmons MD 05/16/2018 8:53 PM EDT
--- NOTE | 2018-05-16 20:55 | US ---
EXAM DATE: 05/16/2018 7:37 PM EDT AGE/SEX: 72 years / Male INDICATIONS: Pre operation cardiac surgery. CLINICAL DATA: This is the patient's initial encounter. Patient reports that signs and symptoms have been present for 1 day and indicates a pain score of 0/10. MEDICAL/SURGICAL HISTORY: Diabetes. Hypercholesterolemia. Hypertension. Gout. . Cardiac cat heterization. COMPARISON: [facility] [place] VENOUS DOPPLER LEG BI, 05/16/2018. . MEASUREMENTS: RIGHT THIGH: Proximal:__6 mm Mid:__ Non-visualized Distal:__Non-visualized LEFT THIGH: Proximal:__4 mm Mid:__3 mm Distal:__Non-visualized RIGHT CALF: Proximal:__Non-visualized Mid:__Non-visualized Distal:__Non-visualized LEFT CALF: Proximal:__2 mm Mid:__Non-visualized Distal:__Non-visualized FINDINGS: The venous system of the lower extremities are patent by color Doppler imaging. Measurements of the leg veins (in mm) are listed above. CONCLUSION: 1. The study is negative for lower extremity deep venous thrombosis. Electronically signed by: Ru Simmons MD 05/16/2018 8:54 PM EDT
--- NOTE | 2018-05-16 20:55 | US ---
EXAM DATE: 05/16/2018 7:38 PM EDT AGE/SEX: 72 years / Male INDICATIONS: Bilateral leg swelling. CLINICAL DATA: This is the patient's initial encounter. Patient reports that signs and symptoms have been present for 1 day and indicates a pain score of 0/10. MEDICAL/SURGICAL HISTORY: Diabetes. Hypercholesterolemia. Hypertension. Gout. . Cardiac cat heterization. COMPARISON: No prior exams available for comparison. TECHNIQUE: Venous ultrasound of both lower extremities was performed from the inguinal ligament to t he proximal calf. Real-time, color Doppler and spectral tracing, compression and augmentation techni ques were used. FINDINGS: Right Leg: Normal compression of the deep venous system from the inguinal region to the proximal samina f. No echogenic clot is seen. Normal response of the venous system to augmentation and respiration. Left Leg: Normal compression of the deep venous system from the inguinal region to the proximal calf . No echogenic clot is seen. Normal response of the venous system to augmentation and respiration. Other: None. CONCLUSION: 1. The study is negative for bilateral lower extremity deep venous thrombosis. Electronically signed by: Ru Simmons MD 05/16/2018 8:54 PM EDT
[2018-05-16] MEDS: Amiodarone 200 MG Tablet PO SCH (22:11)
[2018-05-16] MEDS: Mupirocin 2% Nasal Oint Topical Syringe EACH NARE SCH (22:11)
[2018-05-16 22:28] LABS: Hemoglobin A1c 9.2 % (4.3-6.0)
[2018-05-17] MEDS: Insulin NovoLOG Aspart Correctional Sugar Inj SQ SCH ×5 (04:06→21:26)
[2018-05-17 04:25] LABS: Hematocrit 40.7 % (39.0-51.0); Hemoglobin 13.9 gm/dL (13.0-17.0); Mean Corpuscular Hemoglobin 29.5 pg (27.0-34.0); Mean Corpuscular Volume 86.7 fL (80.0-100.0); Mean Platelet Volume 7.9 fL (7.0-11.0); Platelet Count 288 th/mm3 (150-450); Red Cell Distribution Width 13.3 % (11.6-17.2)
--- NOTE | 2018-05-17 08:52 | XR ---
EXAM DATE: 05/17/2018 8:47 AM EDT AGE/SEX: 72 years / Male INDICATIONS: Evaluate for pneumonia, pneumothorax, or communicable disease. Pre-op cardiac surgery. CLINICAL DATA: This is the patient's initial encounter. Patient reports that signs and symptoms have been present for 1 day and indicates a pain score of 3/10. MEDICAL/SURGICAL HISTORY: . Diabetes. Hypercholesterolemia. Hypertension. Gout. . Cardiac cath eterization. COMPARISON: C, CHEST 1V SINGLE AP, 05/15/2018. . FINDINGS: Discoid atelectasis and/or fibrotic scarring is noted within the left lung base. The heart is normal. The pulmonary vascular pattern is normal. The right lung is clear. Mild degenerative changes and sco liosis of the thoracic spine are noted. CONCLUSION: Discoid atelectasis and/or fibrotic scarring within the left lung base. Electronically signed by: Xander Wood MD 05/17/2018 8:50 AM EDT
[2018-05-17] MEDS: Amiodarone 200 MG Tablet PO SCH ×2 (09:17→21:26)
[2018-05-17] MEDS: Metoprolol Tartrate 50 MG Tablet PO SCH ×2 (09:17→21:26)
[2018-05-17] MEDS: Mupirocin 2% Nasal Oint Topical Syringe EACH NARE SCH ×2 (09:18→21:27)
[2018-05-17] MEDS: amLODIPine 5 MG Tablet PO SCH (09:18)
--- NOTE | 2018-05-17 12:04 | P.PNCV ---
- Note Subjective/Hospital Course: pt seen and evaluated full consult to follow sts data discussed with pt RISK SCORES About the STS Risk Calculator Procedure: CAB Only Risk of Mortality: 1.559% Morbidity or Mortality: 16.666% Long Length of Stay: 7.165% Short Length of Stay: 31.518% Permanent Stroke: 1.239% Prolonged Ventilation: 10.139% DSW Infection: 0.656% Renal Failure: 4.952% Reoperation: 5.835% Objective: Vital Signs - 24 hr 05/16/18 13:00 05/16/18 14:00 05/16/18 15:00 Temperature Pulse Rate 84 68 78 Respiratory Rate Blood Pressure Pulse Oximetry 05/16/18 16:00 05/16/18 17:00 05/16/18 18:00 Temperature Pulse Rate 100 H 84 80 Respiratory Rate 20 Blood Pressure Pulse Oximetry 05/16/18 19:00 05/16/18 19:51 05/16/18 20:00 Temperature 98.2 F 98.0 F Pulse Rate 80 81 90 Respiratory Rate 18 18 Blood Pressure 137/88 145/84 H Pulse Oximetry 94 L 95 05/16/18 21:00 05/16/18 22:00 05/16/18 23:00 Temperature Pulse Rate 86 93 H 69 Respiratory Rate Blood Pressure Pulse Oximetry 05/16/18 23:51 05/16/18 23:56 05/17/18 00:00 Temperature 98.2 F Pulse Rate 68 82 Respiratory Rate 18 Blood Pressure 127/72 Pulse Oximetry 94 L 94 L 05/17/18 01:00 05/17/18 02:00 05/17/18 03:00 Temperature 98.6 F Pulse Rate 80 100 H 79 Respiratory Rate 18 Blood Pressure 144/76 H Pulse Oximetry 98 05/17/18 04:00 05/17/18 05:00 05/17/18 06:00 Temperature Pulse Rate 79 71 79 Respiratory Rate Blood Pressure Pulse Oximetry 05/17/18 07:00 05/17/18 08:00 05/17/18 09:00 Temperature 98.0 F Pulse Rate 75 72 78 Respiratory Rate 16 16 Blood Pressure 185/93 H Pulse Oximetry 95 94 L 05/17/18 10:00 05/17/18 11:00 Temperature 98.0 F Pulse Rate 75 69 Respiratory Rate 17 Blood Pressure 128/74 Pulse Oximetry Labs: Laboratory Results - last 12 hr 05/17/18 05/17/18 05/17/18 03:46 04:00 07:47 WBC 10.0 RBC 4.70 Hgb 13.9 Hct 40.7 MCV 86.7 MCH 29.5 MCHC 34.0 RDW 13.3 Plt Count 288 MPV 7.9 POC Glucose 265 H 221 H 05/17/18 11:00 WBC RBC Hgb Hct MCV MCH MCHC RDW Plt Count MPV POC Glucose 374 H Result Diagrams: 05/17/18 04:00 05/16/18 04:54 - Plan (1) Diabetes (2) Hypertension Patient is undergoing CABG plus MAZE procedure for Atrial Flutter. STS riisk does not account for additional procedure. (1) Diabetes Qualifiers: Diabetes mellitus type: type 2 (2) Hypertension Qualifiers: Hypertension type: essential hypertension Qualified Code(s): I10 - Essential (primary) hypertension
--- NOTE | 2018-05-17 12:22 | MB ---
cc: Ana Lilia Vu DATE: 05/17/2018 HISTORY OF PRESENT ILLNESS: A 72-year-old male patient of Dr. Kip Walker and Dr. Anaya. Presented to the emergency room with chest pain, brought in by ambulance. apparently was admitted on 05/15/2018. Prior to that, he had some epigastric pain that radiated to both of his arms. Initially thought that it may be related to one of his medications, but also developed some leg swelling and some abdominal discomfort. He has undergone stress test in Dr. Anaya's office in 11/2017. Initially was referred to have a cardiac catheterization, but refused at that time. He also refused a nuclear stress test. He had an echocardiogram in 10/2017 which showed an ejection fraction of 44%, left ventricular hypertrophy, left atrial enlargement, mild mitral regurgitation, mild tricuspid regurgitation. On this admission, his EKG showed some ST and T-wave abnormality, first-degree AV block. Troponins peaked at 18.20. He was ruled in for a non-STEMI. Underwent cardiac catheterization by Dr. Anaya which showed mid LAD 90% stenosed. The first diagonal had a 90% stenosis proximally. The proximal LAD had a 90% stenosis. The obtuse marginal had an 80% stenosis proximally, and also in the mid section had a 99% stenosis. There was total occlusion of the right coronary artery with filling of the distal right PDA. We were consulted to evaluate for coronary artery bypass grafting. The patient also was found to have some atrial flutter and was recommended for left atrial appendage ablation and/or maze procedure. PAST MEDICAL HISTORY: Includes diabetes, gout, hypertension, hyperlipidemia. PAST SURGICAL HISTORY: Include a cardiac catheterization in 1981. He had right inguinal hernia repair, tonsillectomy. ALLERGIES: PENICILLIN. HOME MEDICATIONS: 1. Allopurinol. 2. Amlodipine. 3. Atenolol. 4. Glipizide. 5. Losartan. 6. Metformin. 7. Pravachol. 8. Vitamin E. FAMILY HISTORY: Unremarkable. SOCIAL HISTORY: The patient is , 2 children. Retired from the [employer]. Smoked for about 15 to 20 years, quit in the . No alcohol. Does live alone. REVIEW OF SYSTEMS: GENERAL: No night sweats, fever, heat and cold intolerance. SKIN: No psoriasis, itching or hives. HEENT: No blurred vision, hearing loss. RESPIRATORY: No cough, shortness of breath. CARDIOVASCULAR: As above in the HPI. GASTROINTESTINAL: No diarrhea or vomiting. GENITOURINARY: No burning, frequency, urgency. CENTRAL NERVOUS SYSTEM: No history of TIA, CVA,seizure disorder. ENDOCRINOLOGY: Positive for diabetes. PHYSICAL EXAMINATION: VITAL SIGNS: Blood pressure 128/70, heart rate of 70, afebrile. GENERAL: The patient is awake, alert, in no acute distress. HEENT: Head is normocephalic, atraumatic. Pupils equal and reactive. Oral mucosa pink, moist. NECK: Supple. No JVD. HEART: Sounds S1, S2. Regular rate and rhythm. No audible rubs, murmurs, or gallops. LUNGS: Clear to auscultation. No wheezes, rales, or rhonchi. ABDOMEN: Soft, nontender. No masses or organomegaly. EXTREMITIES: No cyanosis, clubbing, or edema. LABORATORY WORK: Shows hemoglobin 13, hematocrit of 40, white cell count of 10, platelet count of 288. INR 1.1. Sodium 138, potassium 4.1, BUN of 19, creatinine 1.19, glucose 245. Hemoglobin A1c of 9.2. TSH of 1.15. MRSA screen nondetected. Ultrasound of the lower extremities reveals no deep vein thrombosis. Carotid ultrasounds are unremarkable. Chest x-ray unremarkable. IMPRESSION: This is a 72-year-old male admitted with chest pain, ruled in for a [id number] myocardial infarction, ejection fraction 40%, multivessel coronary artery disease. The cardiac films have been evaluated by Dr. Renita Leonard. Plan will be for coronary artery bypass grafting x4 with a maze procedure. The patient is agreeable to proceed. PLAN: At this time for surgery on , second case. STS data will be documented in the electronic record. ELIER Berger , 11:58 AM , 12:09 PM
--- NOTE | 2018-05-17 16:13 | P.PN ---
Subjective Interval history: Follow up for NSTEMI, high grade LAD disease, multivessel CAD. Patient is currently doing well. He is scheduled for CABG tomorrow morning. No CP, SOB, fever, chills. Physical Exam Vital signs: Vital Signs 05/16/18 17:00 05/16/18 18:00 05/16/18 19:00 Temperature Pulse Rate 84 80 80 Respiratory Rate Blood Pressure Pulse Oximetry 05/16/18 19:51 05/16/18 20:00 05/16/18 21:00 Temperature 98.2 F 98.0 F Pulse Rate 81 90 86 Respiratory Rate 18 18 Blood Pressure 137/88 145/84 H Pulse Oximetry 94 L 95 05/16/18 22:00 05/16/18 23:00 05/16/18 23:51 Temperature 98.2 F Pulse Rate 93 H 69 68 Respiratory Rate 18 Blood Pressure 127/72 Pulse Oximetry 94 L 05/16/18 23:56 05/17/18 00:00 05/17/18 01:00 Temperature Pulse Rate 82 80 Respiratory Rate Blood Pressure Pulse Oximetry 94 L 05/17/18 02:00 05/17/18 03:00 05/17/18 04:00 Temperature 98.6 F Pulse Rate 100 H 79 79 Respiratory Rate 18 Blood Pressure 144/76 H Pulse Oximetry 98 05/17/18 05:00 05/17/18 06:00 05/17/18 07:00 Temperature 98.0 F Pulse Rate 71 79 75 Respiratory Rate 16 Blood Pressure 185/93 H Pulse Oximetry 95 05/17/18 08:00 05/17/18 09:00 05/17/18 10:00 Temperature Pulse Rate 72 78 75 Respiratory Rate 16 Blood Pressure Pulse Oximetry 94 L 05/17/18 11:00 05/17/18 13:00 05/17/18 14:00 Temperature 98.0 F Pulse Rate 69 66 60 Respiratory Rate 17 Blood Pressure 128/74 Pulse Oximetry 05/17/18 15:00 Temperature 98.3 F Pulse Rate 90 Respiratory Rate 17 Blood Pressure 122/80 Pulse Oximetry 100 Intake & Output 05/16/18 05/17/18 05/17/18 18:59 06:59 18:59 Intake Total 240 / 240 480 / 480 Output Total 600 / 600 400 / 400 Balance -360 / -360 80 / 80 Weight 103.5 kg Intake: Oral 240 / 240 480 / 480 Output: Urine 600 / 600 400 / 400 Other: Date of Last Bowel Movement 05/14/18 Narrative: GENERAL: Alert, oriented 3, NAD. SKIN: Warm and dry. HEAD: Normocephalic. EYES: No scleral icterus. No injection or drainage. NECK: Supple, trachea midline. No JVD or lymphadenopathy. CARDIOVASCULAR: Regular rate and rhythm without murmurs, gallops, or rubs. RESPIRATORY: Breath sounds equal bilaterally. No accessory muscle use. GASTROINTESTINAL: Abdomen soft, non-tender, nondistended. MUSCULOSKELETAL: No cyanosis, or edema. BACK: Nontender without obvious deformity. No CVA tenderness. Results - Labs CBC & Chem 7: 05/17/18 04:00 05/16/18 04:54 Laboratory Results - last 24 hr 05/16/18 05/16/18 05/16/18 17:30 17:30 17:30 WBC RBC Hgb Hct MCV MCH MCHC RDW Plt Count MPV PT 10.7 INR 1.1 APTT 25.4 POC Glucose Hemoglobin A1c 9.2 H Nasal Screen MRSA (PCR) Blood Type A Positive Blood Type Recheck Required Antibody Screen Negative MTS Gel Crossmatch See Detail Bld Prod Order Comment Not Reportable 05/16/18 05/16/18 05/16/18 18:27 18:30 23:13 WBC RBC Hgb Hct MCV MCH MCHC RDW Plt Count MPV PT INR APTT POC Glucose 227 H 276 H Hemoglobin A1c Nasal Screen MRSA (PCR) Not detected Blood Type Blood Type Recheck Antibody Screen MTS Gel Crossmatch Bld Prod Order Comment 05/17/18 05/17/18 05/17/18 03:46 04:00 07:47 WBC 10.0 RBC 4.70 Hgb 13.9 Hct 40.7 MCV 86.7 MCH 29.5 MCHC 34.0 RDW 13.3 Plt Count 288 MPV 7.9 PT INR APTT POC Glucose 265 H 221 H Hemoglobin A1c Nasal Screen MRSA (PCR) Blood Type Blood Type Recheck Antibody Screen MTS Gel Crossmatch Bld Prod Order Comment 05/17/18 11:00 WBC RBC Hgb Hct MCV MCH MCHC RDW Plt Count MPV PT INR APTT POC Glucose 374 H Hemoglobin A1c Nasal Screen MRSA (PCR) Blood Type Blood Type Recheck Antibody Screen MTS Gel Crossmatch Bld Prod Order Comment - Imaging Impressions Carotid Doppler Study 05/16/18 16:33 CONCLUSION: 1. Right Internal Carotid Artery: Mild visible plaque without hemodynamically significant stenosis. 2. Left Internal Carotid Artery: Mild visible plaque without hemodynamically significant stenosis. Lower Extremity Ultrasound 05/16/18 16:33 CONCLUSION: 1. The study is negative for lower extremity deep venous thrombosis. Venous Doppler Study 05/16/18 16:33 CONCLUSION: 1. The study is negative for bilateral lower extremity deep venous thrombosis. Chest X-Ray 05/17/18 16:33 CONCLUSION: Discoid atelectasis and/or fibrotic scarring within the left lung base. Assessment and Plan - Assessment (1) NSTEMI (non-ST elevated myocardial infarction) Code(s): I21.4 - Non-ST elevation (NSTEMI) myocardial infarction Status: Acute - Plan Mr. June is a pleasant 72-year-old male with a history of diabetes mellitus, hypertension, hyperlipidemia who presents to the emergency department due to chest discomfort and radiation to his arms. Troponins were elevated on admission. NSTEMI - troponins elevated to 0.11, 12, 18. Multivessel CAD High grade LAD disease - CV surgery following. CABG in the morning. - Continue Amiodarone 400mg Q12hrs - Currently on Metoprolol 50mg BID. - Continue aspirin 81 mg daily, atorvastatin 40 mg nightly - Continue nitroglycerin. Diabetes mellitus Hypertension - Levemir 15 units BID, sliding scale insulin. - Continue Amlodipine 5mg Qday. Full code. Ambulation.
[2018-05-17 19:33] LABS: Bacteria,Urine Many /hpf; Bilirubin,Urine Negative (Negative); Clarity,Urine Cloudy (Clear); Color,Urine Yellow (Yellw/Straw); Glucose,Urine (UA) 500 or Greater mg/dL (Negative); Leukocyte Esterase,Urine Large (Negative); Nitrite,Urine Positive (Negative); Specific Gravity,Urine 1.023 (1.002-1.035)
[2018-05-17] MEDS: Insulin Detemir Inj 1,000 UNIT/10 ML Vial SQ SCH (21:26)
[2018-05-17] MEDS ORDERED: Chlorhexidine Gluconate 2% 1 Pack (2 Cloths) TOPICAL ONE (23:14)
[2018-05-17] MEDS ORDERED: Sodium Chlor 0.9% Inj 500 ML IV.SIG SCH (23:45)
[2018-05-18] MEDS: Metoprolol Tartrate 25 MG Tablet PO SCH (05:19)
[2018-05-18] MEDS: Insulin NovoLOG Aspart Correctional Sugar Inj SQ SCH ×5 (06:14→23:16)
[2018-05-18] MEDS: Amiodarone 200 MG Tablet PO SCH ×2 (08:31→21:25)
[2018-05-18] MEDS: Mupirocin 2% Nasal Oint Topical Syringe EACH NARE SCH ×2 (08:31→21:25)
[2018-05-18] MEDS: amLODIPine 5 MG Tablet PO SCH (08:31)
[2018-05-18] MEDS: Insulin Detemir Inj 1,000 UNIT/10 ML Vial SQ SCH ×2 (08:31→23:16)
[2018-05-18] MEDS: Metoprolol Tartrate 50 MG Tablet PO SCH ×2 (08:31→21:25)
--- NOTE | 2018-05-18 15:24 | P.PNCV ---
- Note Subjective/Hospital Course: A 72-year-old male patient of Dr. Kip Walker and Dr. Anaya. Presented to the emergency room with chest pain, brought in by ambulance. apparently was admitted on 05/15/2018. Prior to that, he had some epigastric pain that radiated to both of his arms. Initially thought that it may be related to one of his medications, but also developed some leg swelling and some abdominal discomfort. He has undergone stress test in Dr. Anaya's office in 11/2017. Initially was referred to have a cardiac catheterization, but refused at that time. He also refused a nuclear stress test. He had an echocardiogram in 2017 which showed an ejection fraction of 44%, left ventricular hypertrophy, left atrial enlargement, mild mitral regurgitation, mild tricuspid regurgitation. On this admission, his EKG showed some ST and T-wave abnormality , first-degree AV block. Troponins peaked at 18.20. He was ruled in for a non- STEMI. Underwent cardiac catheterization by Dr. Anaya which showed mid LAD 90 % stenosed. The first diagonal had a 90% stenosis proximally. The proximal LAD had a 90% stenosis. The obtuse marginal had an 80% stenosis proximally, and also in the mid section had a 99% stenosis. There was total occlusion of the right coronary artery with filling of the distal right PDA. We were consulted to evaluate for coronary artery bypass grafting. The patient also was found to have some atrial flutter and was recommended for left atrial appendage ablation and/or maze procedure. PAST MEDICAL HISTORY: Includes diabetes, gout, hypertension, hyperlipidemia. 05/18 OR date changed to tomorrow on azactam for UTI BGM with some improvement was on lantus 52units at night at home Objective: Vital Signs - 24 hr 05/17/18 16:18 05/17/18 17:20 05/17/18 19:00 Temperature 98.0 F Pulse Rate 86 80 77 Respiratory Rate 18 Blood Pressure 164/90 H Pulse Oximetry 96 05/17/18 20:00 05/17/18 20:55 05/17/18 21:00 Temperature Pulse Rate 76 74 Respiratory Rate Blood Pressure Pulse Oximetry 96 05/17/18 22:00 05/17/18 23:00 05/18/18 00:00 Temperature 97.9 F Pulse Rate 98 H 69 62 Respiratory Rate 18 Blood Pressure 130/74 Pulse Oximetry 96 05/18/18 01:00 05/18/18 02:00 05/18/18 03:00 Temperature 97.8 F Pulse Rate 58 L 60 76 Respiratory Rate 16 Blood Pressure 170/65 H Pulse Oximetry 96 05/18/18 04:00 05/18/18 05:00 05/18/18 06:00 Temperature Pulse Rate 70 70 70 Respiratory Rate Blood Pressure Pulse Oximetry 05/18/18 07:00 05/18/18 08:00 05/18/18 08:50 Temperature 98.3 F Pulse Rate 64 67 Respiratory Rate 16 Blood Pressure 169/91 H Pulse Oximetry 96 97 05/18/18 09:00 05/18/18 10:00 05/18/18 11:00 Temperature 98.2 F Pulse Rate 73 76 66 Respiratory Rate 16 Blood Pressure 129/79 Pulse Oximetry 96 05/18/18 12:00 05/18/18 13:00 05/18/18 14:00 Temperature Pulse Rate 77 79 72 Respiratory Rate Blood Pressure Pulse Oximetry 05/18/18 15:00 Temperature 98.4 F Pulse Rate 78 Respiratory Rate 16 Blood Pressure 125/74 Pulse Oximetry 96 GENERAL: SKIN: Warm and dry. HEAD: Normocephalic. EYES: No scleral icterus. No injection or drainage. NECK: Supple, trachea midline. No JVD or lymphadenopathy. CARDIOVASCULAR: Regular rate and rhythm without murmurs, gallops, or rubs. RESPIRATORY: Breath sounds equal bilaterally. No accessory muscle use. GASTROINTESTINAL: Abdomen soft, non-tender, nondistended. MUSCULOSKELETAL: No cyanosis, or edema. BACK: Nontender without obvious deformity. No CVA tenderness. Labs: Laboratory Results - last 12 hr 05/16/18 05/17/18 05/18/18 17:30 18:45 05:29 POC Glucose 247 H Urine Color Yellow Urine Clarity Cloudy H Urine pH 5.0 Ur Specific [place] 1.023 Urine Protein Negative Urine Glucose (UA) 500 or greater Urine Ketones Negative Urine Occult Blood Small H Urine Nitrate Positive H Urine Bilirubin Negative Urine Urobilinogen Less than 2 Ur Leukocyte Esterase Large H Urine RBC 3 Urine WBC 151 H Urine WBC Clumps Few H Urine Bacteria Many H Micro UA Comment Culture indicated Urine Culture Comments Culture indicated Blood Type A Positive Blood Type Recheck Required Antibody Screen Negative MTS Gel Crossmatch See Detail 05/18/18 05/18/18 07:36 11:55 POC Glucose 272 H 279 H Urine Color Urine Clarity Urine pH Ur Specific [place] Urine Protein Urine Glucose (UA) Urine Ketones Urine Occult Blood Urine Nitrate Urine Bilirubin Urine Urobilinogen Ur Leukocyte Esterase Urine RBC Urine WBC Urine WBC Clumps Urine Bacteria Micro UA Comment Urine Culture Comments Blood Type Blood Type Recheck Antibody Screen MTS Gel Crossmatch Result Diagrams: 05/17/18 04:00 05/16/18 04:54 Telemetry: NSR - Plan (1) Diabetes (2) Hypertension (6) CAD (coronary artery disease), [place] coronary artery (7) UTI (urinary tract infection) Plan: on azactam (1) Diabetes Qualifiers: Diabetes mellitus type: type 2 (2) Hypertension Qualifiers: Hypertension type: essential hypertension Qualified Code(s): I10 - Essential (primary) hypertension (6) CAD (coronary artery disease), [place] coronary artery Qualifiers: [place] vs. transplanted heart: [place] heart
--- NOTE | 2018-05-18 22:59 | P.PN ---
Subjective Interval history: Follow up for NSTEMI, high grade LAD disease, multivessel CAD, DM. Patient is doing well. CABG surgery was re-scheduled for Tuesday05/19/2018. No acute concerns. Physical Exam Vital signs: Vital Signs 05/17/18 23:00 05/18/18 00:00 05/18/18 01:00 Temperature 97.9 F Pulse Rate 69 62 58 L Respiratory Rate 18 Blood Pressure 130/74 Pulse Oximetry 96 05/18/18 02:00 05/18/18 03:00 05/18/18 04:00 Temperature 97.8 F Pulse Rate 60 76 70 Respiratory Rate 16 Blood Pressure 170/65 H Pulse Oximetry 96 05/18/18 05:00 05/18/18 06:00 05/18/18 07:00 Temperature 98.3 F Pulse Rate 70 70 64 Respiratory Rate 16 Blood Pressure 169/91 H Pulse Oximetry 96 05/18/18 08:00 05/18/18 08:50 05/18/18 09:00 Temperature Pulse Rate 67 73 Respiratory Rate Blood Pressure Pulse Oximetry 97 05/18/18 10:00 05/18/18 11:00 05/18/18 12:00 Temperature 98.2 F Pulse Rate 76 66 77 Respiratory Rate 16 Blood Pressure 129/79 Pulse Oximetry 96 05/18/18 13:00 05/18/18 14:00 05/18/18 15:00 Temperature 98.4 F Pulse Rate 79 72 78 Respiratory Rate 16 Blood Pressure 125/74 Pulse Oximetry 96 05/18/18 16:00 05/18/18 17:00 05/18/18 18:00 Temperature Pulse Rate 66 77 71 Respiratory Rate Blood Pressure Pulse Oximetry Intake & Output 05/18/18 05/18/18 05/19/18 06:59 18:59 06:59 Intake Total 240 / 240 1400 / 1400 Output Total 550 / 550 800 / 800 Balance -310 / -310 600 / 600 Weight 103.5 kg Intake: IV 100 / 100 Azactam Inj 1,000 MG In NS Inj 100 / 100 100 ML @ 200 mls/hr IV.SIG Q8H [facility] Rx#:[id number] Oral 240 / 240 1300 / 1300 Output: Urine 550 / 550 800 / 800 Other: Date of Last Bowel Movement 05/18/18 # Bowel Movements 1 Narrative: GENERAL: Alert, oriented 3, NAD. SKIN: Warm and dry. HEAD: Normocephalic. EYES: No scleral icterus. No injection or drainage. NECK: Supple, trachea midline. No JVD or lymphadenopathy. CARDIOVASCULAR: Regular rate and rhythm without murmurs, gallops, or rubs. RESPIRATORY: Breath sounds equal bilaterally. No accessory muscle use. GASTROINTESTINAL: Abdomen soft, non-tender, nondistended. MUSCULOSKELETAL: No cyanosis, or edema. BACK: Nontender without obvious deformity. No CVA tenderness. Results - Labs CBC & Chem 7: 05/17/18 04:00 05/16/18 04:54 Laboratory Results - last 24 hr 05/16/18 05/17/18 05/18/18 17:30 18:45 05:29 POC Glucose 247 H Urine Color Yellow Urine Clarity Cloudy H Urine pH 5.0 Ur Specific [place] 1.023 Urine Protein Negative Urine Glucose (UA) 500 or greater Urine Ketones Negative Urine Occult Blood Small H Urine Nitrate Positive H Urine Bilirubin Negative Urine Urobilinogen Less than 2 Ur Leukocyte Esterase Large H Urine RBC 3 Urine WBC 151 H Urine WBC Clumps Few H Urine Bacteria Many H Micro UA Comment Culture indicated Urine Culture Comments Culture indicated Blood Type A Positive Blood Type Recheck Required Antibody Screen Negative MTS Gel Crossmatch See Detail 05/18/18 05/18/18 05/18/18 07:36 11:55 16:01 POC Glucose 272 H 279 H 333 H Urine Color Urine Clarity Urine pH Ur Specific [place] Urine Protein Urine Glucose (UA) Urine Ketones Urine Occult Blood Urine Nitrate Urine Bilirubin Urine Urobilinogen Ur Leukocyte Esterase Urine RBC Urine WBC Urine WBC Clumps Urine Bacteria Micro UA Comment Urine Culture Comments Blood Type Blood Type Recheck Antibody Screen MTS Gel Crossmatch 05/18/18 22:29 POC Glucose 285 H Urine Color Urine Clarity Urine pH Ur Specific [place] Urine Protein Urine Glucose (UA) Urine Ketones Urine Occult Blood Urine Nitrate Urine Bilirubin Urine Urobilinogen Ur Leukocyte Esterase Urine RBC Urine WBC Urine WBC Clumps Urine Bacteria Micro UA Comment Urine Culture Comments Blood Type Blood Type Recheck Antibody Screen MTS Gel Crossmatch Microbiology 05/17/18 18:45 Clean Catch Urine Urine Culture - Preliminary gram negative rods Assessment and Plan - Assessment (1) NSTEMI (non-ST elevated myocardial infarction) Code(s): I21.4 - Non-ST elevation (NSTEMI) myocardial infarction Status: Acute - Plan Mr. June is a pleasant 72-year-old male with a history of diabetes mellitus, hypertension, hyperlipidemia who presents to the emergency department due to chest discomfort and radiation to his arms. Troponins were elevated on admission. NSTEMI - troponins elevated to 0.11, 12, 18. Multivessel CAD High grade LAD disease - CV surgery following. CABG in the morning on 05/19/2018. - Continue Amiodarone 400mg Q12hrs - Currently on Metoprolol 50mg BID. - Continue aspirin 81 mg daily, atorvastatin 40 mg nightly - Continue nitroglycerin. Diabetes mellitus Hypertension - Levemir 15 units BID, sliding scale insulin. - We can increase Levemir to 20 units BID after CABG on 05/19/2018. - Continue Amlodipine 5mg Qday. Urinary tract infection - patient is on Aztreonam. Cx is growing GNR. Full code. Ambulation.
[2018-05-19] MEDS: Insulin NovoLOG Aspart Correctional Sugar Inj SQ SCH ×3 (03:39→13:12)
[2018-05-19] MEDS: Nitroglycerin Drip Premix 50 MG/250 ML BOTTLE IV.CONT PRN (05:25)
[2018-05-19] MEDS: Metoprolol Tartrate 50 MG Tablet PO SCH ×2 (06:29→13:12)
[2018-05-19] MEDS ORDERED: Heparin - SQ 10,000 UNITS/ML Vial ONE ×2 (06:32)
[2018-05-19] MEDS ORDERED: MethylPREDNISolone Sod Succinate Inj 125 MG/2 ML Vial ONE (06:32)
[2018-05-19] MEDS ORDERED: Sodium Chlor 0.9% Inj 250 ML ONE (06:33)
[2018-05-19] MEDS ORDERED: Tranexamic Acid Inj 1,000 MG/10 ML Ampul IV.PUSH ONE (07:45)
[2018-05-19] MEDS ORDERED: Cardioplegic Irr Soln 2,000 ML IRRIGATION ONE (07:57)
[2018-05-19] MEDS ORDERED: Albumin Human 25% Inj 50 ML IV.SIG ONE (07:57)
[2018-05-19] MEDS ORDERED: Heparin 10,000 UNITS/10 ML Vial (for IV use) ONE (07:58)
[2018-05-19] MEDS ORDERED: Calcium Chloride Inj 1 GM/10 ML Syringe ONE (07:58)
[2018-05-19] MEDS ORDERED: Potassium Chlor 40 mEq Premix 80 MEQ/200 ML PIGGYBACK ONE (07:59)
[2018-05-19] MEDS ORDERED: Heparin - SQ 10,000 UNITS/ML Vial OTHER ONE (09:03)
[2018-05-19] MEDS ORDERED: Protamine Sulfate Inj 250 MG/25 ML Vial ONE (10:32)
[2018-05-19] MEDS ORDERED: Protamine Sulfate Inj 50 MG/5 ML Vial IV.CONT ONE (11:06)
[2018-05-19] MEDS ORDERED: Phenylephrine/NS 1000 MCG/10ML Syringe IV.PUSH ONE (11:15)
[2018-05-19] MEDS ORDERED: Calcium Chloride Inj 1 GM/10 ML Syringe IV.PUSH ONE (11:30)
[2018-05-19] MEDS ORDERED: Dextrose 50% in Water 50 ML Vial IV.PUSH PRN (11:36)
[2018-05-19] MEDS ORDERED: Potassium Chlor 20 mEq Premix 20 MEQ/100 ML PIGGYBACK IV.SIG PRN ×3 (11:36)
[2018-05-19] MEDS ORDERED: Magnesium Sulfate Inj 2 GM in Sodium Chlor 0.9% Inj 96 ML IV.SIG PRN ×4 (11:36)
[2018-05-19] MEDS ORDERED: Clevidipine Inj 25 MG/50 ML VIAL IV.CONT PRN (11:36)
[2018-05-19] MEDS ORDERED: Calcium Chloride Inj 1 GM/10 ML Syringe IV.PUSH PRN (11:36)
[2018-05-19] MEDS ORDERED: RESP: Racemic Epinephrine 2.25% 0.5 ML Neb NEB PRN (11:36)
[2018-05-19] MEDS ORDERED: Metoprolol Inj 5 MG/5 ML Vial IV.PUSH PRN (11:36)
[2018-05-19] MEDS ORDERED: Calcium Chloride Inj 1 GM in Sodium Chlor 0.9% Inj 100 ML IV.SIG PRN (11:36)
[2018-05-19] MEDS ORDERED: Post-op Orders (for Pharmacy) OTHER STA (11:36)
--- NOTE | 2018-05-19 12:03 | P.OP ---
- Preoperative Diagnosis (1) Atrial flutter (2) NSTEMI (non-ST elevated myocardial infarction) (3) CAD (coronary artery disease), [place] coronary artery - Postoperative Diagnosis (1) NSTEMI (non-ST elevated myocardial infarction) (2) CAD (coronary artery disease), [place] coronary artery (3) Atrial flutter Date of procedure: 05/19/18 Procedure: CABG x 4 ARMSTRONG to LAD SVG to D1 - good SVG to OM1 - good SVG to PDA - fair MAZE procedure Anesthesia: GETA Surgeon: Renita Leonard MD Life Skills Specialist: Gt Pedroza Pathology: other (Left atrial appendage) Operation and Findings: The risks, benefits, complications, treatment options, and expected outcomes were discussed with the patient. The possibilities of reaction to medication, pulmonary aspiration, perforation of viscus, bleeding, recurrent infection, the need for additional procedures, failure to diagnose a condition, and creating a complication requiring transfusion or operation were discussed with the patient. The patient concurred with the proposed plan, giving informed consent. The site of surgery properly noted/marked. The patient was taken to Operating Room, identified as Cristi June and the procedure verified as CABG, EVH, MANISH , MAZE Procedure. A Time Out was held and the above information confirmed. Standard monitoring lines and Mccracken catheter were placed. General anesthesia was induced. The patient was prepped and draped in a sterile fashion. A median sternotomy was performed and electrocautery was used to obtain hemostasis. The left internal mammary artery was procured as a pedicle from the 7th rib to the 1st rib in the usual manner. Simultaneously left greater saphenous vein was procured from the left leg using a minimally invasive endoscopic technique. The vein was prepared for anastomosis and the leg wound was irrigated and closed in 2 layers. The pericardium was opened and a pericardial sling was created using interrupted 0 silk sutures. The patient was heparinized for cardiopulmonary bypass and the distal mammary pedicle was instrumented for anastomosis. The heart was instrumented for cardiopulmonary bypass in the usual manner. Antegrade blood cardioplegia was employed. The patient was placed on cardiopulmonary bypass. A MAZE procedure was performed using RF ablation to treat all 4 pulmonary veins. The left atrial appendage was resected using a stapler. An aortic cross-clamp was applied and the heart was arrested using cold blood cardioplegia. Antegrade cardioplegia was administered after each anastomosis. After adequate arrest, the distal right coronary circulation was investigated and the PDA was opened with a [place] blade and found to be a 1 millimeter fair target. Saphenous vein was approximated to the PDA artery using a running 7 0 Prolene suture. The graft was measured for length and orientation and the proximal anastomosis was constructed to the ascending aorta using a running 5 0 Prolene suture after creating an aortotomy with a 5 millimeter punch. The 1st circumflex marginal artery was then opened with a [place] blade and found to be a 1.5 millimeter good target. Saphenous vein was approximated to the OM1 artery using a running 7 0 Prolene suture. The graft was measured for length and orientation and the proximal anastomosis was constructed to the ascending aorta using a running 5 0 Prolene suture after creating an aortotomy with a 5 millimeter punch. The 1st diagonal artery was then opened with a [place] blade and found to be a 1.5 millimeter good target. Saphenous vein was approximated to the D1 artery using a running 7 0 Prolene suture. The graft was measured for length and orientation and was suspended from the pericardium. The distal LAD was opened with a [place] blade and found to be a 1.5 millimeter good target. The left internal mammary artery was approximated to the LAD using a running 7 0 Prolene suture. The pedicle was attached to the epicardium using interrupted 5 0 silk suture. The patient was systemically rewarmed and received a hotshot dose of warm blood cardioplegia. The aorta was vented and the proximal anastomosis to the D1 graft was accomplished using a running 5 0 Prolene suture after creating an aortotomy was a 5 millimeter punch. The cross-clamp was removed and all proximal and distal anastomoses were examined for hemostasis. Temporary atrial and ventricular pacing wires were positioned and brought out through the skin in the usual manner. The patient was paced at 80 beats per minute and weaned from cardiopulmonary bypass. Protamine was given. There was no adverse reaction. Decannulation was carried out without incident. Wound was checked for hemostasis which was obtained using electrocautery. A 36 [place] mediastinal and 32 [place] left pleural chest tubes were placed and secured to the skin with 0 silk suture. The sternum was closed with stainless steel wire. The fascia was closed with 1. PDS. The subcutaneous tissue was closed using a running 2-0 Vicryl suture. The skin was closed with 4-0 Monocryl. Sterile dressings were placed. At the end of the operation, all sponge, instruments, and needle counts were correct. The patient was transferred to the CVICU in stable condition. Findings: LVEF ~45%. XC: 60 min CPB: 93 min Drains: mediastinal x 1 pleural x 1 Specimens: left atrial appendage Complications: none Pacing Wires: 2 atrial and 2 ventricular
[2018-05-19] MEDS: Insulin Detemir Inj 1,000 UNIT/10 ML Vial SQ SCH ×2 (12:04→22:10)
[2018-05-19] MEDS: Mupirocin 2% Nasal Oint Topical Syringe EACH NARE SCH ×2 (12:04→22:10)
[2018-05-19] MEDS: Amiodarone 200 MG Tablet PO SCH ×2 (12:04→20:02)
[2018-05-19] MEDS: Albumin Human 5% Inj 250 ML IV.SIG PRN ×2 (12:53→18:43)
[2018-05-19] MEDS ORDERED: Dexmedetomidine Inj 200 MCG in Sodium Chlor 0.9% Inj 48 ML IV.CONT PRN (13:00)
[2018-05-19] MEDS ORDERED: fentaNYL Citrate Inj 250 MCG/5 ML Ampul ONE (13:06)
[2018-05-19] MEDS: amLODIPine 5 MG Tablet PO SCH (13:12)
--- NOTE | 2018-05-19 13:31 | XR ---
EXAM DATE: 05/19/2018 12:55 PM EDT AGE/SEX: 72 years / Male INDICATIONS: Cardiac Disease. Post CABG. CLINICAL DATA: This is the patient's initial encounter. Patient reports that signs and symptoms have been present for 1 day and indicates a pain score of Nonresponsive. MEDICAL/SURGICAL HISTORY: . Diabetes. Hypercholesterolemia. Hypertension. Gout. Cardiac cathet erization . Cardiac catheterization COMPARISON: [facility] [place], [place], CHEST 2V PA&LAT, 05/17/2018. . FINDINGS: A single AP view of the chest demonstrates interval thoracic surgery with findings of recent CABG. In tact median sternotomy wires. Endotracheal tube is appropriately positioned above the phoebe. Right I J introducer sheath with a central venous catheter projecting over the central venous system. Mediast inal drain and left thoracostomy tube appear to be appropriately positioned. There is no pneumothorax . Mild atelectatic changes in the left lower lung field. Lungs are otherwise clear. CONCLUSION: 1. Postsurgical changes status post CABG. Life-support tubes all appear to be appropriately position ed. 2. Mild atelectasis or scarring in the left lower lung field. Accounting for the low lung volumes, l ungs are otherwise clear. 3. No pneumothorax. Electronically signed by: Isrrael Rodriguez MD 05/19/2018 1:29 PM EDT
[2018-05-19] MEDS ORDERED: Insulin Regular (For Infusion) 100 UNIT in Sodium Chlor 0.9% Inj 99 ML IV.CONT PRN (14:00)
[2018-05-19] MEDS: fentaNYL Citrate Inj 100 MCG/2 ML Ampul IV.PUSH PRN ×6 (14:21→23:21)
--- NOTE | 2018-05-19 17:04 | P.PN ---
Subjective Interval history: Follow up for NSTEMI, high grade LAD disease, multivessel CAD, DM. Patient is status post CABG. He is intubated and sedated. Discussed with nursing staff. No acute concerns. Physical Exam Vital signs: Vital Signs 05/18/18 17:00 05/18/18 18:00 05/18/18 19:00 Temperature 97.9 F Pulse Rate 77 71 70 Respiratory Rate 18 Blood Pressure 138/63 Pulse Oximetry 96 05/18/18 20:00 05/18/18 21:00 05/18/18 22:00 Temperature Pulse Rate 70 70 70 Respiratory Rate Blood Pressure Pulse Oximetry 05/18/18 23:00 05/19/18 00:00 05/19/18 01:00 Temperature 98 F Pulse Rate 60 58 L 54 L Respiratory Rate 16 Blood Pressure 119/63 Pulse Oximetry 95 05/19/18 02:00 05/19/18 03:00 05/19/18 04:00 Temperature 98.7 F Pulse Rate 58 L 68 71 Respiratory Rate 18 Blood Pressure 157/82 H Pulse Oximetry 96 05/19/18 05:00 05/19/18 06:00 05/19/18 12:19 Temperature Pulse Rate 68 66 Respiratory Rate 12 Blood Pressure Pulse Oximetry 95 05/19/18 12:30 05/19/18 14:30 05/19/18 14:33 Temperature 97 F L 97 F L Pulse Rate 79 Respiratory Rate 12 13 Blood Pressure 112/57 L Pulse Oximetry 94 L 92 L 05/19/18 15:00 05/19/18 15:35 Temperature 97 F L Pulse Rate 79 Respiratory Rate 7 L Blood Pressure 109/60 Pulse Oximetry 97 97 Intake & Output 05/18/18 05/19/18 05/19/18 18:59 06:59 18:59 Intake Total 1400 / 1400 350 / 350 6877.5 / 6877.5 Output Total 800 / 800 900 / 900 1400 / 1400 Balance 600 / 600 -550 / -550 5477.5 / 5477.5 Weight 101.5 kg Intake: IV 100 / 100 350 / 350 2977.5 / 2977.5 Nitroglycerin Drip Premix 50 mg 250 / 250 0 / 0 In 250 ml @ 5 MCG/MIN 1.5 mls/ hr IV.CONT TITRATE PRN Rx#: [id number] Ofirmev Inj 1,000 mg In 100 ml 100 / 100 @ 400 mls/hr IV.SIG Q6H [facility] Rx# :[id number] Buminate 5% Inj 250 ML @ 250 250 / 250 mls/hr IV.SIG UNSCH PRN Rx#: [id number] Azactam Inj 1,000 MG In NS Inj 100 / 100 100 / 100 100 ML @ 200 mls/hr IV.SIG Q8H [facility] Rx#:[id number] Calcium Chloride Inj 1 GM In NS 110 / 110 Inj 100 ML @ 100 mls/hr IV.SIG UNSCH PRN Rx#:[id number] LR 1000 mL Inj 500 ML @ 500 mls 1000 / 1000 /hr IV.SIG .Q1H PRN Rx#: [id number] Vancomycin Inj 1,750 MG In NS 517.5 / 517.5 Inj 500 ML @ 250 mls/hr IV.SIG TYPING POOL [employer] [facility] Rx#:[id number] Oral 1300 / 1300 Anesthesia Amount 3400 / 3400 Cell Saver Amount 500 / 500 Output: Urine 800 / 800 900 / 900 Estimated Blood Loss 1000 / 1000 Urine Amount (Catheter) 400 / 400 Indwelling Temp Sensing 400 / 400 Catheter Other: # Voids 3 Date of Last Bowel Movement 05/18/18 05/18/18 05/18/18 # Bowel Movements 1 Narrative: GENERAL: Intubated, sedated. SKIN: Warm and dry. HEAD: Normocephalic. EYES: No scleral icterus. No injection or drainage. NECK: Supple, trachea midline. No JVD or lymphadenopathy. CARDIOVASCULAR: Regular rate and rhythm without murmurs, gallops, or rubs. Status post CABG 4 RESPIRATORY: Breath sounds equal bilaterally. No accessory muscle use. GASTROINTESTINAL: Abdomen soft, non-tender, nondistended. MUSCULOSKELETAL: No cyanosis, or edema. BACK: Nontender without obvious deformity. No CVA tenderness. - Urinary Catheter Management Indwelling Temp Sensing Catheter Cath placed during this visit: yes Reason for continuing: Hourly intake/output Insertion date: 05/19/18 Insertion time: 07:55 Results - Labs CBC & Chem 7: 05/17/18 04:00 05/16/18 04:54 Laboratory Results - last 24 hr 05/16/18 05/18/18 05/18/18 17:30 16:01 22:29 POC Glucose 333 H 285 H Blood Type Antibody Screen MTS Gel Crossmatch See Detail 05/19/18 05/19/18 05/19/18 03:22 07:30 13:07 POC Glucose 231 H 119 H Blood Type A Positive Antibody Screen Negative MTS Gel Crossmatch See Detail 05/19/18 16:19 POC Glucose 130 H Blood Type Antibody Screen MTS Gel Crossmatch Microbiology 05/17/18 18:45 Clean Catch Urine Urine Culture - Final Enterobacter cloacae - Imaging Impressions Chest X-Ray 05/19/18 11:36 CONCLUSION: 1. Postsurgical changes status post CABG. Life-support tubes all appear to be appropriately positioned. 2. Mild atelectasis or scarring in the left lower lung field. Accounting for the low lung volumes, lungs are otherwise clear. 3. No pneumothorax. - Procedures CABG x 4 on 05/19/2018 ARMSTRONG to LAD SVG to D1 SVG to OM1 SVG to PDA Assessment and Plan - Assessment (1) NSTEMI (non-ST elevated myocardial infarction) Code(s): I21.4 - Non-ST elevation (NSTEMI) myocardial infarction Status: Acute - Plan Mr. June is a pleasant 72-year-old male with a history of diabetes mellitus, hypertension, hyperlipidemia who presents to the emergency department due to chest discomfort and radiation to his arms. Troponins were elevated on admission. NSTEMI - troponins elevated to 0.11, 12, 18. Multivessel CAD High grade LAD disease - CV surgery following. CABG x4 on 05/19/2018 (ARMSTRONG to LAD, SVG to D1, SVG to OM1, SVG to PDA). - Continue Amiodarone 400mg Q12hrs - Continue aspirin 81 mg daily, atorvastatin 40 mg nightly - Continue nitroglycerin. Diabetes mellitus Hypertension - Levemir 15 units BID, sliding scale insulin. - BP is somewhat low. Full code. Pharmacological DVT prophylaxis when okay with cardiothoracic surgery.
[2018-05-19] MEDS: Vancomycin Inj 1,000 MG in Sodium Chlor 0.9% Inj 250 ML IV.SIG SCH (20:01)
[2018-05-20] MEDS: fentaNYL Citrate Inj 100 MCG/2 ML Ampul IV.PUSH PRN ×4 (03:41→13:44)
[2018-05-20 05:03] LABS: Hematocrit 29.9 % (39.0-51.0); Hemoglobin 10.4 gm/dL (13.0-17.0); Mean Corpuscular HGB Conc 34.7 % (32.0-36.0); Mean Corpuscular Hemoglobin 29.8 pg (27.0-34.0); Mean Corpuscular Volume 85.8 fL (80.0-100.0); Mean Platelet Volume 8.4 fL (7.0-11.0); Platelet Count 238 th/mm3 (150-450); Red Blood Count 3.48 mil/mm3 (4.50-5.90); Red Cell Distribution Width 13.4 % (11.6-17.2); White Blood Count 20.9 th/mm3 (4.0-11.0)
--- NOTE | 2018-05-20 05:19 | XR ---
EXAM DATE: 05/20/2018 5:14 AM EDT AGE/SEX: 72 years / Male INDICATIONS: Shortness of breath, possible pneumothorax. CLINICAL DATA: This is the patient's subsequent encounter. Patient reports that signs and symptoms h ave been present for 2 days and indicates a pain score of 10/10. MEDICAL/SURGICAL HISTORY: Diabetes. Hypercholesterolemia. Hypertension. Gout. CABG. COMPARISON: [facility], CHEST 1V SINGLE AP, 05/19/2018. . FINDINGS: Very mild bibasilar atelectasis not significantly changed. No large effusion. No pneumothorax. Heart size stable, within normal limits. Mediastinal drain and left chest tube remain in place, as do es a right internal jugular central venous catheter with tip at the atriocaval junction. Endotracheal tube and nasogastric tube has been removed. CONCLUSION: 1. No significant change mild bibasilar atelectasis. 2. Interim extubation and nasogastric tube removal. 3. Mediastinal drain, left chest tube and right IJ central venous catheter remain in place. No pneum othorax. Electronically signed by: Gt Quispe MD 05/20/2018 5:18 AM EDT
[2018-05-20 05:32] LABS: Carbon Dioxide 26.2 meq/L (21.0-32.0); Magnesium 2.1 mg/dL (1.5-2.5); Potassium 4.5 meq/L (3.5-5.1)
--- NOTE | 2018-05-20 08:57 | P.PNCA ---
Subjective Interval history: Pleasant 72 year old male who came in as a NSTEMI. Alert and oriented. Admits to pain from chest incision site. Post op day 1, status post CABG x 4 on 2017 ARMSTRONG to LAD, SVG to D1, SVG to OM1, SVG to PDA. Medications and Allergies Allergies Allergy/AdvReac Type Severity Reaction Status Date / Time penicillin G Allergy Severe Hives Verified 05/15/18 09:39 Home Medications Medication Instructions Recorded Confirmed Type allopurinol 300 mg PO DAILY 05/15/18 05/15/18 History amlodipine 5 mg PO DAILY 05/15/18 05/15/18 History atenolol 100 mg PO DAILY 05/15/18 05/15/18 History glipizide 5 mg PO DAILY 05/15/18 05/15/18 History losartan 100 mg PO DAILY 05/15/18 05/15/18 History metformin 1,000 mg PO BID 05/15/18 05/15/18 History pravastatin 20 mg PO DAILY 05/15/18 05/15/18 History vitamin E 400 unit PO DAILY 05/15/18 05/15/18 History Active Medications: Active Medications Acetaminophen (Tylenol) 650 mg PO Q4H PRN PRN Reason: Headache, fever Al Hydroxide/Mg Hydroxide (Milk Of Magnesia Liq) 30 ml PO Q12H PRN PRN Reason: Mild Constipation Albuterol (Duoneb Neb (Prn)) 1 ampul NEB Q2HR NEB PRN PRN Reason: WHEEZING Last Admin: 05/20/18 07:45 Dose: 1 ampul Amiodarone HCl (Cordarone) 400 mg PO Q12HR [facility] Last Admin: 05/19/18 20:02 Dose: 400 mg Aspirin (Aspirin Chew) 81 mg PO DAILY [facility] Atorvastatin Calcium (Lipitor) 40 mg PO HS [facility] Last Admin: 05/19/18 20:02 Dose: 40 mg Bisacodyl (Dulcolax Supp) 10 mg RECTAL DAILY PRN PRN Reason: SEVERE CONSITIPATION Calcium Chloride (Calcium Chloride Inj) 0.5 gm IV.PUSH UNSCH PRN PRN Reason: SEE LABEL COMMENTS Chlorhexidine Gluconate (Hibiclens 4% Topical) 1 applicatio TOPICAL [employer] [facility] Stop: 05/22/18 16:33 Sodium Chloride 77.5 ml/Papaverine HCl 60 mg/Nitroglycerin 100 mcg/Diltiazem HCl 100 mg 0 ml IRRIGATION [employer] [facility] Stop: 05/22/18 16:59 Last Admin: 05/19/18 10:25 Dose: 100 irrig.soln Sodium Chloride 1,000 ml/ (Vancomycin HCl 1,000 mg) 0 ml IRRIGATION [employer] [facility] Stop: 05/22/18 16:59 Last Admin: 05/19/18 10:27 Dose: 1,000 irrig.soln Dextrose (D50w Vial) 50 ml IV.PUSH UNSCH PRN PRN Reason: PER HYPOGLYCEMIA PROTOCOL Epinephrine (Racepinephrine 2.25% Neb) 0.5 ml NEB UNSCH X1 PRN PRN Reason: STRIDOR Stop: 05/20/18 11:35 Fentanyl Citrate (Fentanyl Inj) 25 mcg IV.PUSH Q1H PRN PRN Reason: BREAKTHROUGH PAIN Last Admin: 05/20/18 07:06 Dose: 25 mcg Vancomycin HCl 1,750 mg/ (Sodium Chloride) 517.5 mls @ 250 mls/hr IV.SIG [employer] [facility] Stop: 05/22/18 16:34 Last Infusion: 05/19/18 10:29 Dose: Infused Sodium Chloride (Ns Inj) 500 mls @ 30 mls/hr IV.SIG .Q10H [facility] Last Admin: 05/18/18 04:53 Dose: Not Given Acetaminophen (Ofirmev Inj) 1,000 mg in 100 mls @ 400 mls/hr IV.SIG Q6H [facility] Stop: 05/20/18 09:14 Last Infusion: 05/20/18 06:36 Dose: Infused Calcium Chloride 1 gm/ Sodium (Chloride) 110 mls @ 100 mls/hr IV.SIG UNSCH PRN PRN Reason: SEE LABEL COMMENTS Last Infusion: 05/19/18 16:32 Dose: Infused Clevidipine (Cleviprex Inj) 25 mg in 50 mls @ 2 mls/hr IV.CONT TITRATE PRN; Protocol PRN Reason: Per protocol Insulin Human Regular 100 unit (/ Sodium Chloride) 100 mls @ 3 mls/hr IV.CONT TITRATE PRN; Protocol PRN Reason: See Protocol Last Titration: 05/20/18 06:53 Dose: Infused Lactated Ringer's (Lr 1000 Ml Inj) 500 mls @ 500 mls/hr IV.SIG .Q1H PRN PRN Reason: SEE LABEL COMMENTS Last Infusion: 05/19/18 14:22 Dose: Infused Magnesium Sulfate 2 gm/ Sodium (Chloride) 100 mls @ 50 mls/hr IV.SIG UNSCH PRN PRN Reason: SEE LABEL COMMENTS Potassium Chloride (Kcl 20 Meq Premix Inj) 20 meq in 100 mls @ 50 mls/hr IV.SIG UNSCH PRN PRN Reason: SEE LABEL COMMENTS Last Infusion: 05/19/18 17:33 Dose: Infused Potassium Chloride (Kcl 20 Meq Premix Inj) 20 meq in 100 mls @ 50 mls/hr IV.SIG UNSCH PRN PRN Reason: SEE LABEL COMMENTS Dexmedetomidine HCl 200 mcg/ (Sodium Chloride) 50 mls @ 5.07 mls/hr IV.CONT TITRATE PRN; Protocol PRN Reason: Per Protocol Last Titration: 05/20/18 06:00 Dose: Infused Magnesium Sulfate 2 gm/ Sodium (Chloride) 100 mls @ 50 mls/hr IV.SIG UNSCH PRN PRN Reason: SEE LABEL COMMENTS Potassium Chloride (Kcl 20 Meq Premix Inj) 20 meq in 100 mls @ 50 mls/hr IV.SIG UNSCH PRN PRN Reason: SEE LABEL COMMENTS Vancomycin HCl 1,000 mg/ (Sodium Chloride) 250 mls @ 250 mls/hr IV.SIG Q12H [facility] Stop: 05/20/18 20:59 Last Infusion: 05/20/18 03:47 Dose: Infused Insulin Detemir (Levemir Inj) 15 unit SQ BID [facility] Last Admin: 05/19/18 22:10 Dose: Not Given Lactulose (Lactulose Liq) 30 ml PO DAILY PRN PRN Reason: SEVERE CONSITIPATION Metoprolol Tartrate (Lopressor) 12.5 mg PO [employer] [facility] Stop: 05/22/18 16:34 Last Admin: 05/18/18 05:19 Dose: 12.5 mg Metoprolol Tartrate (Lopressor Inj) 2.5 mg IV.PUSH Q1H PRN PRN Reason: SEE LABEL COMMENTS Mupirocin (Bactroban 2% Nasal Oint) 1 applicatio EACH NARE BID [facility] Stop: 05/20/18 16:34 Last Admin: 05/19/18 22:10 Dose: Not Given Ondansetron HCl (Zofran Inj) 4 mg IV.PUSH Q6H PRN PRN Reason: NAUSEA OR VOMITING Oxycodone/Acetaminophen (Percocet 5/325 Mg) 1 tab PO Q3H PRN PRN Reason: PAIN SCALE 1 TO 5 Pantoprazole Sodium (Protonix) 40 mg PO DAILY@06 [facility] Last Admin: 05/20/18 07:16 Dose: 40 mg Phenylephrine HCl (Neosynephrine Inj) 0.1 mg IV.PUSH UNSCH PRN PRN Reason: SEE LABEL COMMENTS Potassium Chloride (K-Dur) 20 meq PO UNSCH PRN PRN Reason: SEE LABEL COMMENTS Potassium Chloride (K-Dur) 40 meq PO UNSCH PRN PRN Reason: SEE LABEL COMMENTS Sennosides (Senokot) 17.2 mg PO Q12H PRN PRN Reason: Moderate Constipation Sodium Bicarbonate (Sodium Bicarbonate 8.4% Inj) 50 meq IV.PUSH UNSCH PRN PRN Reason: SEE LABEL COMMENTS Last Admin: 05/19/18 14:33 Dose: 50 meq Sodium Bicarbonate (Sodium Bicarbonate 8.4% Inj) 100 meq IV.PUSH UNSCH PRN PRN Reason: SEE LABEL COMMENTS Sodium Chloride (Ns Flush) 2 ml IV.FLUSH BID [facility] Last Admin: 05/19/18 22:10 Dose: Not Given Sodium Chloride (Ns Flush) 2 ml IV.FLUSH PRN PRN PRN Reason: FLUSH AFTER USING IV ACCESS Physical Exam Vital signs: Vital Signs 05/19/18 12:19 05/19/18 12:30 05/19/18 14:30 Temperature 97 F L 97 F L Pulse Rate 79 Respiratory Rate 12 12 Blood Pressure 112/57 L Pulse Oximetry 95 94 L 05/19/18 14:33 05/19/18 15:00 05/19/18 15:35 Temperature 97 F L Pulse Rate 79 Respiratory Rate 13 7 L Blood Pressure 109/60 Pulse Oximetry 92 L 97 97 05/19/18 17:11 05/19/18 18:19 05/19/18 19:00 Temperature 97.4 F L 97.6 F Pulse Rate 79 Respiratory Rate 12 18 Blood Pressure 123/63 Pulse Oximetry 05/19/18 19:34 05/19/18 22:10 05/19/18 22:23 Temperature Pulse Rate Respiratory Rate 18 16 Blood Pressure Pulse Oximetry 96 05/19/18 23:00 05/20/18 00:21 05/20/18 03:00 Temperature 98.5 F 99.3 F Pulse Rate 79 79 Respiratory Rate 16 16 16 Blood Pressure 100/64 124/56 L Pulse Oximetry 96 94 L 05/20/18 06:52 05/20/18 07:38 05/20/18 07:48 Temperature 98.1 F Pulse Rate 93 H Respiratory Rate 16 15 Blood Pressure Pulse Oximetry 91 L Intake & Output 05/19/18 05/20/18 05/20/18 18:59 06:59 18:59 Intake Total 8332.5 / 8332.5 505.8 / 505.8 Output Total 2550 / 2550 1020 / 1020 Balance 5782.5 / 5782.5 -514.2 / -514.2 Weight 112 kg Intake: IV 3432.5 / 3432.5 505.8 / 505.8 Precedex Inj 200 MCG In NS Inj 35 / 35 25.8 / 25.8 48 ML @ 0.2 MCG/KG/HR 5.07 mls/ hr IV.CONT TITRATE PRN Rx#: [id number] NovoLIN R (IV Infusion) 100 70 / 70 30 / 30 UNIT In NS Inj 99 ML @ 3 UNITS/ HR 3 mls/hr IV.CONT TITRATE PRN Rx#:[id number] Nitroglycerin Drip Premix 50 mg 0 / 0 In 250 ml @ 5 MCG/MIN 1.5 mls/ hr IV.CONT TITRATE PRN Rx#: [id number] Ofirmev Inj 1,000 mg In 100 ml 100 / 100 200 / 200 @ 400 mls/hr IV.SIG Q6H [facility] Rx# :[id number] Buminate 5% Inj 250 ML @ 250 500 / 500 mls/hr IV.SIG UNSCH PRN Rx#: [id number] Calcium Chloride Inj 1 GM In NS 110 / 110 Inj 100 ML @ 100 mls/hr IV.SIG UNSCH PRN Rx#:[id number] LR 1000 mL Inj 500 ML @ 500 mls 1000 / 1000 /hr IV.SIG .Q1H PRN Rx#: [id number] KCl 20 mEq Premix Inj 20 meq In 100 / 100 100 ml @ 50 mls/hr IV.SIG UNSCH PRN Rx#:[id number] Vancomycin Inj 1,000 MG In NS 250 / 250 Inj 250 ML @ 250 mls/hr IV.SIG Q12H [facility] Rx#:[id number] Vancomycin Inj 1,750 MG In NS 517.5 / 517.5 Inj 500 ML @ 250 mls/hr IV.SIG [employer] [facility] Rx#:[id number] Anesthesia Amount 3400 / 3400 Other 1000 / 1000 Cell Saver Amount 500 / 500 Output: Estimated Blood Loss 1000 / 1000 Urine Amount (Catheter) 1400 / 1400 850 / 850 Indwelling Temp Sensing 1400 / 1400 850 / 850 Catheter Chest Tube Drainage 150 / 150 170 / 170 #2 Anterior 150 / 150 170 / 170 Other: Other Intake Source Saline Solution Date of Last Bowel Movement 05/18/18 05/18/18 - Constitutional mild distress - Routine HEENT Exam Head: Present: normocephalic, atraumatic Eye: Present: PERRL, normal accommodation ENT: Present: mucous membranes moist - Routine Neck Exam Present: supple - Routine Respiratory Exam Present: diminished air movement Comments: chest tube in place, - Routine Cardiovascular Exam Present: RRR - Routine Abdominal Exam Present: soft - Routine Skin Exam Comments: mid line chest incision, dressing clean, dry, intact. - Routine Neurological Exam Present: alert, oriented X3 - Detailed Neurological Exam: Coma Scale Eye Opening: Spontaneous Verbal Response: Oriented Motor Response: Obey commands Ron Coma Scale Total: 15 - Routine Psychiatric Exam Present: normal affect - Urinary Catheter Management Indwelling Temp Sensing Catheter Cath placed during this visit: yes Reason for continuing: Hourly intake/output Insertion date: 05/19/18 Insertion time: 07:55 Results 05/22/18 04:35 05/22/18 04:35 CBC 05/20/18 Range/Units 04:15 WBC 20.9 H (4.0-11.0) th/mm3 RBC 3.48 L (4.50-5.90) mil/mm3 Hgb 10.4 L (13.0-17.0) gm/dL Hct 29.9 L (39.0-51.0) % Plt Count 238 (150-450) th/mm3 Comprehensive Metabolic Panel 05/20/18 Range/Units 04:15 Sodium 141 (136-145) meq/L Potassium 4.5 (3.5-5.1) meq/L Chloride 106 (98-107) meq/L Carbon Dioxide 26.2 (21.0-32.0) meq/L BUN 16 (7-18) mg/dL Creatinine 1.01 (0.60-1.30) mg/dL Calcium 8.0 L (8.5-10.1) mg/dL Intake and Output 05/19/18 05/20/18 05/20/18 22:59 06:59 14:59 Intake Total 1565 / 1565 505.8 / 505.8 Output Total 1150 / 1150 1020 / 1020 Balance 415 / 415 -514.2 / -514.2 Intake: IV 565 / 565 505.8 / 505.8 Precedex Inj 200 MCG In NS Inj 35 / 35 25.8 / 25.8 48 ML @ 0.2 MCG/KG/HR 5.07 mls/ hr IV.CONT TITRATE PRN Rx#: [id number] NovoLIN R (IV Infusion) 100 70 / 70 30 / 30 UNIT In NS Inj 99 ML @ 3 UNITS/ HR 3 mls/hr IV.CONT TITRATE PRN Rx#:[id number] Ofirmev Inj 1,000 mg In 100 ml 200 / 200 @ 400 mls/hr IV.SIG Q6H [facility] Rx# :[id number] Buminate 5% Inj 250 ML @ 250 250 / 250 mls/hr IV.SIG UNSCH PRN Rx#: [id number] Calcium Chloride Inj 1 GM In NS 110 / 110 Inj 100 ML @ 100 mls/hr IV.SIG UNSCH PRN Rx#:[id number] KCl 20 mEq Premix Inj 20 meq In 100 / 100 100 ml @ 50 mls/hr IV.SIG UNSCH PRN Rx#:[id number] Vancomycin Inj 1,000 MG In NS 250 / 250 Inj 250 ML @ 250 mls/hr IV.SIG Q12H [facility] Rx#:[id number] Other 1000 / 1000 Output: Urine Amount (Catheter) 1000 / 1000 850 / 850 Indwelling Temp Sensing 1000 / 1000 850 / 850 Catheter Chest Tube Drainage 150 / 150 170 / 170 #2 Anterior 150 / 150 170 / 170 Other: Other Intake Source Saline Solution Date of Last Bowel Movement 05/18/18 05/18/18 Weight 112 kg - Imaging and Cardiology Imaging: Impressions Chest X-Ray 05/19/18 11:36 CONCLUSION: 1. Postsurgical changes status post CABG. Life-support tubes all appear to be appropriately positioned. 2. Mild atelectasis or scarring in the left lower lung field. Accounting for the low lung volumes, lungs are otherwise clear. 3. No pneumothorax. Chest X-Ray 05/20/18 05:00 CONCLUSION: 1. No significant change mild bibasilar atelectasis. 2. Interim extubation and nasogastric tube removal. 3. Mediastinal drain, left chest tube and right IJ central venous catheter remain in place. No pneumothorax. Assessment and Plan - Plan Assessment NSTEMI-Status post CABG with Dr. Leonard. New onset Atrial flutter HTN Hyperlipidemia Plan Status post CABG x 4, MAZE procedure, and left atrial appendage clipping with Dr. Leonard. Overall stable. Isolated episode of Atrial flutter, converted in ER with Cardizem. Will hold off on anticoagulation at this time, status post CABG, MAZE procedure, and left atrial appendage clipping. POD #1. BP controlled. On Lipitor. The patient was seen and evaluated by Dr. Anaya who completed a [id number] encounter physical exam and participated in care and management and decision making. The exam, history, and the medical decision-making described in the above note were completed with the assistance of the mid-level provider. I reviewed and agree with the findings presented. I attest that I had a [id number] encounter with the patient on the same day, and personally performed and documented my assessment and findings in the medical record. doing well post op tubes out Code Status: Full Code Discussed Condition With: Nurse
[2018-05-20] MEDS: Vancomycin Inj 1,000 MG in Sodium Chlor 0.9% Inj 250 ML IV.SIG SCH ×2 (09:21→21:07)
[2018-05-20] MEDS: Mupirocin 2% Nasal Oint Topical Syringe EACH NARE SCH (09:23)
[2018-05-20] MEDS ORDERED: Bisacodyl 10 MG Supp RECTAL PRN (10:35)
[2018-05-20] MEDS ORDERED: Dextrose 50% in Water 50 ML Vial IV.PUSH PRN ×2 (10:35→12:23)
--- NOTE | 2018-05-20 10:44 | P.PNCV ---
- Note CVT: Post Op Day #: 1 Subjective/Hospital Course: A 72-year-old male patient of Dr. Kip Walker and Dr. Anaya. Presented to the emergency room with chest pain, brought in by ambulance. apparently was admitted on 05/15/2018. Prior to that, he had some epigastric pain that radiated to both of his arms. Initially thought that it may be related to one of his medications, but also developed some leg swelling and some abdominal discomfort. He has undergone stress test in Dr. Anaya's office in 11/2017. Initially was referred to have a cardiac catheterization, but refused at that time. He also refused a nuclear stress test. He had an echocardiogram in 2017 which showed an ejection fraction of 44%, left ventricular hypertrophy, left atrial enlargement, mild mitral regurgitation, mild tricuspid regurgitation. On this admission, his EKG showed some ST and T-wave abnormality , first-degree AV block. Troponins peaked at 18.20. He was ruled in for a non- STEMI. Underwent cardiac catheterization by Dr. Anaya which showed mid LAD 90 % stenosed. The first diagonal had a 90% stenosis proximally. The proximal LAD had a 90% stenosis. The obtuse marginal had an 80% stenosis proximally, and also in the mid section had a 99% stenosis. There was total occlusion of the right coronary artery with filling of the distal right PDA. We were consulted to evaluate for coronary artery bypass grafting. The patient also was found to have some atrial flutter and was recommended for left atrial appendage ablation and/or maze procedure. PAST MEDICAL HISTORY: Includes diabetes, gout, hypertension, hyperlipidemia. 05/18 OR date changed to tomorrow on azactam for UTI BGM with some improvement was on lantus 52units at night at home 05/20/18 c/o incisional pain, especially at chest tube site Objective: Vital Signs - 24 hr 05/19/18 12:19 05/19/18 12:30 05/19/18 14:30 Temperature 97 F L 97 F L Pulse Rate 79 Respiratory Rate 12 12 Blood Pressure 112/57 L Pulse Oximetry 95 94 L 05/19/18 14:33 05/19/18 15:00 05/19/18 15:35 Temperature 97 F L Pulse Rate 79 Respiratory Rate 13 7 L Blood Pressure 109/60 Pulse Oximetry 92 L 97 97 05/19/18 17:11 05/19/18 18:19 05/19/18 19:00 Temperature 97.4 F L 97.6 F Pulse Rate 79 Respiratory Rate 12 18 Blood Pressure 123/63 Pulse Oximetry 05/19/18 19:34 05/19/18 22:10 05/19/18 22:23 Temperature Pulse Rate Respiratory Rate 18 16 Blood Pressure Pulse Oximetry 96 05/19/18 23:00 05/20/18 00:21 05/20/18 03:00 Temperature 98.5 F 99.3 F Pulse Rate 79 79 Respiratory Rate 16 16 16 Blood Pressure 100/64 124/56 L Pulse Oximetry 96 94 L 05/20/18 06:52 05/20/18 07:38 05/20/18 07:48 Temperature 98.1 F Pulse Rate 93 H Respiratory Rate 16 15 Blood Pressure Pulse Oximetry 91 L 05/20/18 08:00 Temperature 98.7 F Pulse Rate 92 H Respiratory Rate 16 Blood Pressure 154/72 H Pulse Oximetry 92 L Labs: Laboratory Results - last 12 hr 05/19/18 05/20/18 05/20/18 23:10 00:25 01:16 WBC RBC Hgb Hct MCV MCH MCHC RDW Plt Count MPV Sodium Potassium Chloride Carbon Dioxide Anion Gap BUN Creatinine Estimated GFR POC Glucose 115 H 111 H 160 H Random Glucose Calcium Magnesium 05/20/18 05/20/18 05/20/18 01:18 02:04 04:11 WBC RBC Hgb Hct MCV MCH MCHC RDW Plt Count MPV Sodium Potassium Chloride Carbon Dioxide Anion Gap BUN Creatinine Estimated GFR POC Glucose 123 H 115 H 82 Random Glucose Calcium Magnesium 05/20/18 05/20/18 05/20/18 04:15 04:15 06:08 WBC 20.9 H RBC 3.48 L Hgb 10.4 L Hct 29.9 L MCV 85.8 MCH 29.8 MCHC 34.7 RDW 13.4 Plt Count 238 MPV 8.4 Sodium 141 Potassium 4.5 Chloride 106 Carbon Dioxide 26.2 Anion Gap 9 BUN 16 Creatinine 1.01 Estimated GFR 73 L POC Glucose 152 H Random Glucose 88 Calcium 8.0 L Magnesium 2.1 05/20/18 05/20/18 05/20/18 07:41 09:14 10:03 WBC RBC Hgb Hct MCV MCH MCHC RDW Plt Count MPV Sodium Potassium Chloride Carbon Dioxide Anion Gap BUN Creatinine Estimated GFR POC Glucose 149 H 122 H 121 H Random Glucose Calcium Magnesium Result Diagrams: 05/20/18 04:15 05/20/18 04:15 Imaging: Carotid Doppler Study 05/16/18 16:33 CONCLUSION: 1. Right Internal Carotid Artery: Mild visible plaque without hemodynamically significant stenosis. 2. Left Internal Carotid Artery: Mild visible plaque without hemodynamically significant stenosis. Lower Extremity Ultrasound 05/16/18 16:33 CONCLUSION: 1. The study is negative for lower extremity deep venous thrombosis. Venous Doppler Study 05/16/18 16:33 CONCLUSION: 1. The study is negative for bilateral lower extremity deep venous thrombosis. Chest X-Ray 05/20/18 05:00 CONCLUSION: 1. No significant change mild bibasilar atelectasis. 2. Interim extubation and nasogastric tube removal. 3. Mediastinal drain, left chest tube and right IJ central venous catheter remain in place. No pneumothorax. Cardiovascular: RRR Telemetry: NSR Pulmonary: Decreased BS bilat GI/: NABS Incision: dry and intact CT: 170ml/12hrs - Plan (1) Diabetes (2) Hypertension (6) CAD (coronary artery disease), [place] coronary artery (7) UTI (urinary tract infection) Plan: on azactam Transfer to stepdown Up to chair, ambulate, PT Advance diet Diurese Hypergylcemic management Continue chest tubes Hold BB today as he required pacing. (1) Diabetes Qualifiers: Diabetes mellitus type: type 2 (2) Hypertension Qualifiers: Hypertension type: essential hypertension Qualified Code(s): I10 - Essential (primary) hypertension (6) CAD (coronary artery disease), [place] coronary artery Qualifiers: [place] vs. transplanted heart: [place] heart
[2018-05-20] MEDS: Ketorolac Inj 30 MG/ML (IVP) Vial IV.PUSH SCH ×2 (12:01→18:32)
[2018-05-20] MEDS: Insulin Detemir Inj 1,000 UNIT/10 ML Vial SQ SCH ×2 (12:01→21:48)
[2018-05-20] MEDS: Amiodarone 200 MG Tablet PO SCH ×2 (13:00→21:09)
[2018-05-20] MEDS: Insulin NovoLOG Aspart Correctional Sugar Inj SQ SCH ×2 (16:57→21:43)
[2018-05-20] MEDS: Docusate Sodium 100 MG Capsule PO SCH (21:09)
[2018-05-21] MEDS: Ketorolac Inj 30 MG/ML (IVP) Vial IV.PUSH SCH ×2 (01:20→05:00)
[2018-05-21 05:38] LABS: Baso % (Auto) 0.1 % (0.0-2.0); Eos % (Auto) 0.1 % (0.0-4.0); Hematocrit 29.1 % (39.0-51.0); Hemoglobin 9.8 gm/dL (13.0-17.0); Lymph # (Auto) 1.3 th/mm3 (1.0-4.8); Lymph % (Auto) 7.1 % (9.0-44.0); Mean Corpuscular HGB Conc 33.8 % (32.0-36.0); Mean Corpuscular Hemoglobin 29.6 pg (27.0-34.0); Mean Corpuscular Volume 87.6 fL (80.0-100.0); Mean Platelet Volume 8.3 fL (7.0-11.0); Mono # (Auto) 2.4 th/mm3 (0.0-0.9); Mono % (Auto) 13.3 % (0.0-8.0); Neut # (Auto) 14.6 th/mm3 (1.8-7.7); Neut % (Auto) 79.4 % (16.0-70.0); Platelet Count 226 th/mm3 (150-450); Red Blood Count 3.32 mil/mm3 (4.50-5.90); Red Cell Distribution Width 13.6 % (11.6-17.2); White Blood Count 18.4 th/mm3 (4.0-11.0)
[2018-05-21 05:56] LABS: Calcium 8.1 mg/dL (8.5-10.1); Carbon Dioxide 25.2 meq/L (21.0-32.0); Magnesium 1.9 mg/dL (1.5-2.5); Potassium 4.1 meq/L (3.5-5.1)
[2018-05-21 07:08] LABS: Lymphocytes 7 % (9-44); Monocytes 6 % (0-8)
[2018-05-21 07:09] LABS: Platelet Estimate Normal (Normal); Platelet Morphology Normal (Normal); RBC Morphology Normal (Normal)
[2018-05-21] MEDS: Polyethylene Glycol 3350 17 GM Packet PO SCH (08:22)
[2018-05-21] MEDS: Multivitamin/Minerals Therapeutic Tablet PO SCH (08:23)
[2018-05-21] MEDS: Docusate Sodium 100 MG Capsule PO SCH ×2 (08:23→20:41)
[2018-05-21] MEDS: Amiodarone 200 MG Tablet PO SCH ×2 (08:23→20:40)
[2018-05-21] MEDS: Insulin Detemir Inj 1,000 UNIT/10 ML Vial SQ SCH ×3 (08:24→20:41)
[2018-05-21] MEDS: Insulin NovoLOG Aspart Correctional Sugar Inj SQ SCH ×4 (08:25→20:42)
--- NOTE | 2018-05-21 08:56 | P.PNCA ---
Subjective Interval history: Patient sitting up in chair, admits to pain from chest tube and chest incision site. Minimal output from chest tube overnight. Encouraged deep breathing. Medications and Allergies Allergies Allergy/AdvReac Type Severity Reaction Status Date / Time penicillin G Allergy Severe Hives Verified 05/15/18 09:39 Home Medications Medication Instructions Recorded Confirmed Type allopurinol 300 mg PO DAILY 05/15/18 05/15/18 History amlodipine 5 mg PO DAILY 05/15/18 05/15/18 History atenolol 100 mg PO DAILY 05/15/18 05/15/18 History glipizide 5 mg PO DAILY 05/15/18 05/15/18 History losartan 100 mg PO DAILY 05/15/18 05/15/18 History metformin 1,000 mg PO BID 05/15/18 05/15/18 History pravastatin 20 mg PO DAILY 05/15/18 05/15/18 History vitamin E 400 unit PO DAILY 05/15/18 05/15/18 History Active Medications: Active Medications Acetaminophen (Tylenol) 650 mg PO Q4H PRN PRN Reason: Headache, fever Al Hydroxide/Mg Hydroxide (Milk Of Елена Liraghu) 30 ml PO DAILY [facility] Last Admin: 05/21/18 08:24 Dose: Not Given Albuterol (Duoneb Neb (Prn)) 1 ampul NEB Q2HR NEB PRN PRN Reason: WHEEZING Last Admin: 05/21/18 03:38 Dose: 1 ampul Albuterol (Duoneb Neb (Sammy)) 1 ampul NEB Q6HR WHILE AWAKE NEB [facility] Stop: 05/22/18 13:59 Last Admin: 05/21/18 07:26 Dose: 1 ampul Amiodarone HCl (Cordarone) 400 mg PO Q12HR [facility] Last Admin: 05/21/18 08:23 Dose: 400 mg Aspirin (Aspirin Chew) 81 mg PO DAILY [facility] Last Admin: 05/21/18 08:23 Dose: 81 mg Atorvastatin Calcium (Lipitor) 40 mg PO HS [facility] Last Admin: 05/20/18 21:10 Dose: 40 mg Bisacodyl (Dulcolax Supp) 10 mg RECTAL PRN PRN PRN Reason: SEE LABEL COMMENTS Calcium Chloride (Calcium Chloride Inj) 0.5 gm IV.PUSH UNSCH PRN PRN Reason: SEE LABEL COMMENTS Chlorhexidine Gluconate (Hibiclens 4% Topical) 1 applicatio TOPICAL [employer]ADLE [employer]PA[employer] [facility] Stop: 05/22/18 16:33 Sodium Chloride 77.5 ml/Papaverine HCl 60 mg/Nitroglycerin 100 mcg/Diltiazem HCl 100 mg 0 ml IRRIGATION [employer]ADLE [employer]PAIR[employer] [facility] Stop: 05/22/18 16:59 Last Admin: 05/19/18 10:25 Dose: 100 irrig.soln Sodium Chloride 1,000 ml/ (Vancomycin HCl 1,000 mg) 0 ml IRRIGATION LADLE [employer]PA[employer] [facility] Stop: 05/22/18 16:59 Last Admin: 05/19/18 10:27 Dose: 1,000 irrig.soln Dextrose (D50w Vial) 50 ml IV.PUSH UNSCH PRN PRN Reason: PER HYPOGLYCEMIA PROTOCOL Diphenhydramine HCl (Benadryl) 50 mg PO HS PRN PRN Reason: SLEEP Docusate Sodium (Colace) 100 mg PO BID [facility] Last Admin: 05/21/18 08:23 Dose: 100 mg Fentanyl Citrate (Fentanyl Inj) 25 mcg IV.PUSH Q1H PRN PRN Reason: BREAKTHROUGH PAIN Last Admin: 05/20/18 13:44 Dose: 25 mcg Furosemide (Lasix Inj) 40 mg IV.PUSH BID@0900,1800 [facility] Last Admin: 05/21/18 08:28 Dose: 40 mg Glucagon (Glucagon Inj) 1 mg OTHER PRN PRN PRN Reason: for Hypoglycemia Protocol Vancomycin HCl 1,750 mg/ (Sodium Chloride) 517.5 mls @ 250 mls/hr IV.SIG [employer] [facility] Stop: 05/22/18 16:34 Last Infusion: 05/19/18 10:29 Dose: Infused Sodium Chloride (Ns Inj) 500 mls @ 30 mls/hr IV.SIG .Q10H [facility] Last Admin: 05/18/18 04:53 Dose: Not Given Calcium Chloride 1 gm/ Sodium (Chloride) 110 mls @ 100 mls/hr IV.SIG UNSCH PRN PRN Reason: SEE LABEL COMMENTS Last Infusion: 05/19/18 16:32 Dose: Infused Lactated Ringer's (Lr 1000 Ml Inj) 500 mls @ 500 mls/hr IV.SIG .Q1H PRN PRN Reason: SEE LABEL COMMENTS Last Infusion: 05/19/18 14:22 Dose: Infused Magnesium Sulfate 2 gm/ Sodium (Chloride) 100 mls @ 50 mls/hr IV.SIG UNSCH PRN PRN Reason: SEE LABEL COMMENTS Potassium Chloride (Kcl 20 Meq Premix Inj) 20 meq in 100 mls @ 50 mls/hr IV.SIG UNSCH PRN PRN Reason: SEE LABEL COMMENTS Last Infusion: 05/19/18 17:33 Dose: Infused Potassium Chloride (Kcl 20 Meq Premix Inj) 20 meq in 100 mls @ 50 mls/hr IV.SIG UNSCH PRN PRN Reason: SEE LABEL COMMENTS Magnesium Sulfate 2 gm/ Sodium (Chloride) 100 mls @ 50 mls/hr IV.SIG UNSCH PRN PRN Reason: SEE LABEL COMMENTS Potassium Chloride (Kcl 20 Meq Premix Inj) 20 meq in 100 mls @ 50 mls/hr IV.SIG UNSCH PRN PRN Reason: SEE LABEL COMMENTS Insulin Aspart (Novolog Insulin Correctional Sugar Inj) 0 unit SQ ACHS [facility]; Protocol Last Admin: 05/21/18 08:25 Dose: 14 unit Insulin Detemir (Levemir Inj) 15 unit SQ BID [facility] Last Admin: 05/21/18 08:24 Dose: 15 unit Ketorolac Tromethamine (Toradol Inj) 15 mg IV.PUSH Q6H [facility] Stop: 05/25/18 11:59 Last Admin: 05/21/18 05:00 Dose: 15 mg Lactulose (Lactulose Liq) 30 ml PO DAILY PRN PRN Reason: SEVERE CONSITIPATION Metformin HCl (Glucophage) 1,000 mg PO BID [facility] Last Admin: 05/20/18 21:09 Dose: 1,000 mg Metoprolol Tartrate (Lopressor) 12.5 mg PO [employer] [facility] Stop: 05/22/18 16:34 Last Admin: 05/18/18 05:19 Dose: 12.5 mg Metoprolol Tartrate (Lopressor Inj) 2.5 mg IV.PUSH Q1H PRN PRN Reason: SEE LABEL COMMENTS Multivitamins/Minerals (Theragran-M) 1 tab PO DAILY [facility] Last Admin: 05/21/18 08:23 Dose: 1 tab Ondansetron HCl (Zofran Inj) 4 mg IV.PUSH Q6H PRN PRN Reason: NAUSEA OR VOMITING Oxycodone/Acetaminophen (Percocet 5/325 Mg) 1 tab PO Q3H PRN PRN Reason: PAIN SCALE 1 TO 5 Last Admin: 05/21/18 04:58 Dose: 1 tab Pantoprazole Sodium (Protonix) 40 mg PO DAILY@06 [facility] Last Admin: 05/21/18 05:00 Dose: 40 mg Phenylephrine HCl (Neosynephrine Inj) 0.1 mg IV.PUSH UNSCH PRN PRN Reason: SEE LABEL COMMENTS Polyethylene Glycol (Miralax) 17 gm PO DAILY [facility] Last Admin: 05/21/18 08:22 Dose: 17 gm Potassium Chloride (K-Dur) 20 meq PO UNSCH PRN PRN Reason: SEE LABEL COMMENTS Potassium Chloride (K-Dur) 40 meq PO UNSCH PRN PRN Reason: SEE LABEL COMMENTS Sennosides (Senokot) 8.6 mg PO HS [facility] Last Admin: 05/20/18 21:10 Dose: 8.6 mg Sodium Bicarbonate (Sodium Bicarbonate 8.4% Inj) 50 meq IV.PUSH UNSCH PRN PRN Reason: SEE LABEL COMMENTS Last Admin: 05/19/18 14:33 Dose: 50 meq Sodium Bicarbonate (Sodium Bicarbonate 8.4% Inj) 100 meq IV.PUSH UNSCH PRN PRN Reason: SEE LABEL COMMENTS Sodium Chloride (Ns Flush) 2 ml IV.FLUSH BID [facility] Last Admin: 05/21/18 08:25 Dose: 2 ml Sodium Chloride (Ns Flush) 2 ml IV.FLUSH PRN PRN PRN Reason: FLUSH AFTER USING IV ACCESS Physical Exam Vital signs: Vital Signs 05/20/18 09:53 05/20/18 11:00 05/20/18 11:57 Temperature Pulse Rate 81 Respiratory Rate 16 16 Blood Pressure Pulse Oximetry 05/20/18 12:00 05/20/18 12:35 05/20/18 13:03 Temperature 98.8 F Pulse Rate 88 94 H Respiratory Rate 16 16 16 Blood Pressure 126/53 L Pulse Oximetry 93 L 05/20/18 13:31 05/20/18 14:15 05/20/18 15:00 Temperature Pulse Rate 94 H Respiratory Rate 16 16 Blood Pressure Pulse Oximetry 95 05/20/18 16:00 05/20/18 18:31 05/20/18 20:00 Temperature 98.8 F 99.6 F Pulse Rate 96 H 94 H Respiratory Rate 16 16 18 Blood Pressure 111/53 L 112/71 Pulse Oximetry 95 93 L 05/20/18 21:15 05/20/18 21:20 05/21/18 00:00 Temperature 99.4 F Pulse Rate 95 H 98 H Respiratory Rate 20 18 Blood Pressure 110/65 Pulse Oximetry 93 L 92 L 05/21/18 03:40 05/21/18 04:00 05/21/18 07:00 Temperature 99.2 F Pulse Rate 97 H 98 H 98 H Respiratory Rate 16 18 Blood Pressure 135/75 Pulse Oximetry 92 L 05/21/18 07:28 05/21/18 08:00 Temperature 98.6 F Pulse Rate 96 H 98 H Respiratory Rate 19 14 Blood Pressure 144/72 H Pulse Oximetry 94 L 93 L Intake & Output 05/20/18 05/21/18 05/21/18 18:59 06:59 18:59 Intake Total 830 / 830 790 / 790 Output Total 240 / 240 1440 / 1440 Balance 590 / 590 -650 / -650 Weight 110 kg Intake: IV 350 / 350 350 / 350 Ofirmev Inj 1,000 mg In 100 ml 100 / 100 @ 400 mls/hr IV.SIG Q6H [facility] Rx# :[id number] Vancomycin Inj 1,000 MG In NS 250 / 250 250 / 250 Inj 250 ML @ 250 mls/hr IV.SIG Q12H [facility] Rx#:[id number] Oral 480 / 480 440 / 440 Output: Urine 0 / 0 1400 / 1400 Chest Tube Drainage 240 / 240 40 / 40 #2 Anterior 240 / 240 40 / 40 Other: Date of Last Bowel Movement 05/18/18 # Bowel Movements 0 0 - Constitutional no acute distress - Routine HEENT Exam Head: Present: normocephalic Eye: Present: normal accommodation ENT: Present: mucous membranes moist - Routine Neck Exam Present: supple - Routine Respiratory Exam Present: diminished air movement - Routine Cardiovascular Exam Present: RRR - Routine Abdominal Exam Present: soft - Routine Skin Exam Comments: midline chest incision dressing, clean, dry and intact. - Routine Neurological Exam Present: alert, oriented X3 - Detailed Neurological Exam: Coma Scale Eye Opening: Spontaneous Verbal Response: Oriented Motor Response: Obey commands [place] Coma Scale Total: 15 - Routine Psychiatric Exam Present: depressed - Urinary Catheter Management Indwelling Temp Sensing Catheter Cath placed during this visit: yes Reason for continuing: Not indwelling catheter Insertion date: 05/19/18 Insertion time: 07:55 Results 05/21/18 05:00 05/21/18 05:00 CBC 05/20/18 05/21/18 Range/Units 04:15 05:00 WBC 20.9 H 18.4 H (4.0-11.0) th/mm3 RBC 3.48 L 3.32 L (4.50-5.90) mil/mm3 Hgb 10.4 L 9.8 L (13.0-17.0) gm/dL Hct 29.9 L 29.1 L (39.0-51.0) % Plt Count 238 226 (150-450) th/mm3 Neut # (Auto) 14.6 H (1.8-7.7) th/mm3 Lymph # (Auto) 1.3 (1.0-4.8) th/mm3 [place] # (Auto) 2.4 H (0.0-0.9) th/mm3 Eos # (Auto) 0.0 (0.0-0.4) th/mm3 Baso # (Auto) 0.0 (0.0-0.2) th/mm3 Comprehensive Metabolic Panel 05/20/18 05/21/18 Range/Units 04:15 05:00 Sodium 141 137 (136-145) meq/L Potassium 4.5 4.1 (3.5-5.1) meq/L Chloride 106 102 (98-107) meq/L Carbon Dioxide 26.2 25.2 (21.0-32.0) meq/L BUN 16 29 H (7-18) mg/dL Creatinine 1.01 1.43 H (0.60-1.30) mg/dL Calcium 8.0 L 8.1 L (8.5-10.1) mg/dL Intake and Output 05/20/18 05/21/18 05/21/18 22:59 06:59 14:59 Intake Total 830 / 830 440 / 440 Output Total 240 / 240 1440 / 1440 Balance 590 / 590 -1000 / -1000 Intake: IV 350 / 350 Vancomycin Inj 1,000 MG In NS 250 / 250 Inj 250 ML @ 250 mls/hr IV.SIG Q12H [facility] Rx#:[id number] Oral 480 / 480 440 / 440 Output: Urine 0 / 0 1400 / 1400 Chest Tube Drainage 240 / 240 40 / 40 #2 Anterior 240 / 240 40 / 40 Other: Date of Last Bowel Movement 05/18/18 05/18/18 # Bowel Movements 0 0 Weight 110 kg - Imaging and Cardiology Imaging: Impressions Chest X-Ray 05/19/18 11:36 CONCLUSION: 1. Postsurgical changes status post CABG. Life-support tubes all appear to be appropriately positioned. 2. Mild atelectasis or scarring in the left lower lung field. Accounting for the low lung volumes, lungs are otherwise clear. 3. No pneumothorax. Chest X-Ray 05/20/18 05:00 CONCLUSION: 1. No significant change mild bibasilar atelectasis. 2. Interim extubation and nasogastric tube removal. 3. Mediastinal drain, left chest tube and right IJ central venous catheter remain in place. No pneumothorax. Assessment and Plan - Plan Assessment NSTEMI-Status post CABG with Dr. Leonard. New onset Atrial flutter HTN Hyperlipidemia Plan -Status post CABG x 4, MAZE procedure, and left atrial appendage clipping with Dr. Leonard. Overall stable. Minimal output from chest tube overnight. -Isolated episode of Atrial flutter, converted in ER with Cardizem. Will hold off on anticoagulation at this time. Continues on aspirin. Status post CABG, MAZE procedure, and left atrial appendage clipping. POD #2. -BP controlled. -On Lipitor. -Creatinine trending up this AM, will continue to monitor. The patient was seen and evaluated by Dr. Anyaa who completed a [id number] encounter physical exam and participated in care and management and decision making. The exam, history, and the medical decision-making described in the above note were completed with the assistance of the mid-level provider. I reviewed and agree with the findings presented. I attest that I had a [id number] encounter with the patient on the same day, and personally performed and documented my assessment and findings in the medical record. Plan for tube removal still in pain. Code Status: Full Code Discussed Condition With: Nurse
--- NOTE | 2018-05-21 08:57 | P.PNCV ---
- Note CVT: Post Op Day #: 2 Subjective/Hospital Course: A 72-year-old male patient of Dr. Kip Walker and Dr. Anaya. Presented to the emergency room with chest pain, brought in by ambulance. apparently was admitted on 05/15/2018. Prior to that, he had some epigastric pain that radiated to both of his arms. Initially thought that it may be related to one of his medications, but also developed some leg swelling and some abdominal discomfort. He has undergone stress test in Dr. Anaya's office in 11/2017. Initially was referred to have a cardiac catheterization, but refused at that time. He also refused a nuclear stress test. He had an echocardiogram in 2017 which showed an ejection fraction of 44%, left ventricular hypertrophy, left atrial enlargement, mild mitral regurgitation, mild tricuspid regurgitation. On this admission, his EKG showed some ST and T-wave abnormality , first-degree AV block. Troponins peaked at 18.20. He was ruled in for a non- STEMI. Underwent cardiac catheterization by Dr. Anaya which showed mid LAD 90 % stenosed. The first diagonal had a 90% stenosis proximally. The proximal LAD had a 90% stenosis. The obtuse marginal had an 80% stenosis proximally, and also in the mid section had a 99% stenosis. There was total occlusion of the right coronary artery with filling of the distal right PDA. We were consulted to evaluate for coronary artery bypass grafting. The patient also was found to have some atrial flutter and was recommended for left atrial appendage ablation and/or maze procedure. PAST MEDICAL HISTORY: Includes diabetes, gout, hypertension, hyperlipidemia. 05/18 OR date changed to tomorrow on azactam for UTI BGM with some improvement was on lantus 52units at night at home 05/20/18 c/o incisional pain, especially at chest tube site 05/21/18 progressing. No complaints thismorning Objective: Vital Signs - 24 hr 05/20/18 09:53 05/20/18 11:00 05/20/18 11:57 Temperature Pulse Rate 81 Respiratory Rate 16 16 Blood Pressure Pulse Oximetry 05/20/18 12:00 05/20/18 12:35 05/20/18 13:03 Temperature 98.8 F Pulse Rate 88 94 H Respiratory Rate 16 16 16 Blood Pressure 126/53 L Pulse Oximetry 93 L 05/20/18 13:31 05/20/18 14:15 05/20/18 15:00 Temperature Pulse Rate 94 H Respiratory Rate 16 16 Blood Pressure Pulse Oximetry 95 05/20/18 16:00 05/20/18 18:31 05/20/18 20:00 Temperature 98.8 F 99.6 F Pulse Rate 96 H 94 H Respiratory Rate 16 16 18 Blood Pressure 111/53 L 112/71 Pulse Oximetry 95 93 L 05/20/18 21:15 05/20/18 21:20 05/21/18 00:00 Temperature 99.4 F Pulse Rate 95 H 98 H Respiratory Rate 20 18 Blood Pressure 110/65 Pulse Oximetry 93 L 92 L 05/21/18 03:40 05/21/18 04:00 05/21/18 07:00 Temperature 99.2 F Pulse Rate 97 H 98 H 98 H Respiratory Rate 16 18 Blood Pressure 135/75 Pulse Oximetry 92 L 05/21/18 07:28 05/21/18 08:00 Temperature 98.6 F Pulse Rate 96 H 98 H Respiratory Rate 19 14 Blood Pressure 144/72 H Pulse Oximetry 94 L 93 L Labs: Laboratory Results - last 12 hr 05/20/18 05/21/18 05/21/18 21:33 05:00 05:00 WBC 18.4 H RBC 3.32 L Hgb 9.8 L Hct 29.1 L MCV 87.6 MCH 29.6 MCHC 33.8 RDW 13.6 Plt Count 226 MPV 8.3 Prelim Diff (Auto) Slide review pending Neut % (Auto) 79.4 H Lymph % (Auto) 7.1 L [place] % (Auto) 13.3 H Eos % (Auto) 0.1 Baso % (Auto) 0.1 Neut # (Auto) 14.6 H Lymph # (Auto) 1.3 [place] # (Auto) 2.4 H Eos # (Auto) 0.0 Baso # (Auto) 0.0 WBC Differential Manual diff final Seg Neuts % (Manual) 84 H Band Neuts % (Manual) 3 Lymphocytes % (Manual) 7 L Monocytes % (Manual) 6 Abs Neuts (Manual) 16.0 H Differential Comment . Platelet Estimate Normal Platelet Morphology Normal RBC Morphology Normal Sodium 137 Potassium 4.1 Chloride 102 Carbon Dioxide 25.2 Anion Gap 10 BUN 29 H Creatinine 1.43 H Estimated GFR 49 L POC Glucose 199 H Random Glucose 201 H D Calcium 8.1 L Magnesium 1.9 05/21/18 07:23 WBC RBC Hgb Hct MCV MCH MCHC RDW Plt Count MPV Prelim Diff (Auto) Neut % (Auto) Lymph % (Auto) [place] % (Auto) Eos % (Auto) Baso % (Auto) Neut # (Auto) Lymph # (Auto) [place] # (Auto) Eos # (Auto) Baso # (Auto) WBC Differential Seg Neuts % (Manual) Band Neuts % (Manual) Lymphocytes % (Manual) Monocytes % (Manual) Abs Neuts (Manual) Differential Comment Platelet Estimate Platelet Morphology RBC Morphology Sodium Potassium Chloride Carbon Dioxide Anion Gap BUN Creatinine Estimated GFR POC Glucose 242 H Random Glucose Calcium Magnesium Result Diagrams: 05/21/18 05:00 05/21/18 05:00 Imaging: Carotid Doppler Study 05/16/18 16:33 CONCLUSION: 1. Right Internal Carotid Artery: Mild visible plaque without hemodynamically significant stenosis. 2. Left Internal Carotid Artery: Mild visible plaque without hemodynamically significant stenosis. Lower Extremity Ultrasound 05/16/18 16:33 CONCLUSION: 1. The study is negative for lower extremity deep venous thrombosis. Venous Doppler Study 05/16/18 16:33 CONCLUSION: 1. The study is negative for bilateral lower extremity deep venous thrombosis. Chest X-Ray 05/20/18 05:00 CONCLUSION: 1. No significant change mild bibasilar atelectasis. 2. Interim extubation and nasogastric tube removal. 3. Mediastinal drain, left chest tube and right IJ central venous catheter remain in place. No pneumothorax. Cardiovascular: RRR Pulmonary: CTA GI/: NABS Incision: dry and intact CT: 40ml charted over last 12 hrs - Plan (2) Hypertension (7) UTI (urinary tract infection) Plan: on azactam Increase insulin dose Start lopressor Encourage ambulation Stim BM Remove chest tubes (2) Hypertension Qualifiers: Qualified Code(s): I10 - Essential (primary) hypertension
[2018-05-21] MEDS: Metoprolol Tartrate 25 MG Tablet PO SCH ×2 (09:17→20:41)
[2018-05-22 05:01] LABS: Hematocrit 27.9 % (39.0-51.0); Hemoglobin 9.4 gm/dL (13.0-17.0); Mean Corpuscular HGB Conc 33.8 % (32.0-36.0); Mean Corpuscular Hemoglobin 29.7 pg (27.0-34.0); Mean Corpuscular Volume 87.7 fL (80.0-100.0); Mean Platelet Volume 7.9 fL (7.0-11.0); Platelet Count 234 th/mm3 (150-450); Red Blood Count 3.18 mil/mm3 (4.50-5.90); Red Cell Distribution Width 13.3 % (11.6-17.2); White Blood Count 14.3 th/mm3 (4.0-11.0)
[2018-05-22 05:25] LABS: Calcium 8.3 mg/dL (8.5-10.1); Potassium 3.9 meq/L (3.5-5.1)
[2018-05-22] MEDS: Insulin Detemir Inj 1,000 UNIT/10 ML Vial SQ SCH ×2 (08:35→20:47)
[2018-05-22] MEDS: Insulin NovoLOG Aspart Correctional Sugar Inj SQ SCH ×4 (08:35→20:47)
[2018-05-22] MEDS: Polyethylene Glycol 3350 17 GM Packet PO SCH (08:36)
[2018-05-22] MEDS: Docusate Sodium 100 MG Capsule PO SCH ×2 (08:37→20:45)
[2018-05-22] MEDS: Multivitamin/Minerals Therapeutic Tablet PO SCH (08:38)
[2018-05-22] MEDS: Metoprolol Tartrate 25 MG Tablet PO SCH ×3 (08:39→20:45)
[2018-05-22] MEDS: Amiodarone 200 MG Tablet PO SCH ×2 (08:39→20:46)
--- NOTE | 2018-05-22 12:45 | P.PNCV ---
- Note Subjective/Hospital Course: A 72-year-old male patient of Dr. Kip Walker and Dr. Anaya. Presented to the emergency room with chest pain, brought in by ambulance. apparently was admitted on 05/15/2018. Prior to that, he had some epigastric pain that radiated to both of his arms. Initially thought that it may be related to one of his medications, but also developed some leg swelling and some abdominal discomfort. He has undergone stress test in Dr. Anaya's office in 11/2017. Initially was referred to have a cardiac catheterization, but refused at that time. He also refused a nuclear stress test. He had an echocardiogram in 2017 which showed an ejection fraction of 44%, left ventricular hypertrophy, left atrial enlargement, mild mitral regurgitation, mild tricuspid regurgitation. On this admission, his EKG showed some ST and T-wave abnormality , first-degree AV block. Troponins peaked at 18.20. He was ruled in for a non- STEMI. Underwent cardiac catheterization by Dr. Anaya which showed mid LAD 90 % stenosed. The first diagonal had a 90% stenosis proximally. The proximal LAD had a 90% stenosis. The obtuse marginal had an 80% stenosis proximally, and also in the mid section had a 99% stenosis. There was total occlusion of the right coronary artery with filling of the distal right PDA. We were consulted to evaluate for coronary artery bypass grafting. The patient also was found to have some atrial flutter and was recommended for left atrial appendage ablation and/or maze procedure. PAST MEDICAL HISTORY: Includes diabetes, gout, hypertension, hyperlipidemia. 05/18 OR date changed to tomorrow on azactam for UTI BGM with some improvement was on lantus 52units at night at home 05/20/18 c/o incisional pain, especially at chest tube site 05/21/18 progressing. No complaints this morning 05/22/18 no BM since surgery / additional GI motility meds given remains in NSR on ASA recheck UA EF 40% start low dose Raffaele today Objective: Vital Signs - 24 hr 05/21/18 13:10 05/21/18 14:30 05/21/18 15:00 Temperature Pulse Rate 92 H 90 Respiratory Rate 18 16 Blood Pressure Pulse Oximetry 93 L 05/21/18 16:00 05/21/18 19:00 05/21/18 19:50 Temperature 98.7 F 98.7 F Pulse Rate 89 91 H 88 Respiratory Rate 16 24 Blood Pressure 121/62 157/81 H Pulse Oximetry 96 94 L 05/21/18 19:56 05/21/18 23:00 05/21/18 23:06 Temperature 98.7 F Pulse Rate 90 77 78 Respiratory Rate 16 22 Blood Pressure 122/72 Pulse Oximetry 95 95 05/22/18 03:00 05/22/18 07:00 05/22/18 08:15 Temperature 98.4 F 98.2 F Pulse Rate 83 86 95 H Respiratory Rate 22 20 19 Blood Pressure 120/71 151/83 H Pulse Oximetry 94 L 95 95 05/22/18 11:00 Temperature 98.5 F Pulse Rate 88 Respiratory Rate 20 Blood Pressure 146/78 H Pulse Oximetry 96 GENERAL: A&O x 3 SKIN: Warm and dry. prevena dressing to chest , incision intact to left leg HEAD: Normocephalic. EYES: No scleral icterus. No injection or drainage. NECK: Supple, trachea midline. No JVD or lymphadenopathy. CARDIOVASCULAR: Regular rate and rhythm without murmurs, gallops, or rubs. RESPIRATORY: Breath sounds equal bilaterally. No accessory muscle use. diminished in the bases GASTROINTESTINAL: Abdomen soft, non-tender, nondistended. MUSCULOSKELETAL: No cyanosis, or edema. BACK: Nontender without obvious deformity. No CVA tenderness. Labs: Laboratory Results - last 12 hr 05/19/18 05/22/18 05/22/18 07:30 04:35 04:35 WBC 14.3 H RBC 3.18 L Hgb 9.4 L Hct 27.9 L MCV 87.7 MCH 29.7 MCHC 33.8 RDW 13.3 Plt Count 234 MPV 7.9 Sodium 138 Potassium 3.9 Chloride 101 Carbon Dioxide 29.0 Anion Gap 8 BUN 29 H Creatinine 1.30 Estimated GFR 55 L POC Glucose Random Glucose 144 H Calcium 8.3 L MTS Gel Crossmatch See Detail 05/22/18 11:44 WBC RBC Hgb Hct MCV MCH MCHC RDW Plt Count MPV Sodium Potassium Chloride Carbon Dioxide Anion Gap BUN Creatinine Estimated GFR POC Glucose 220 H Random Glucose Calcium MTS Gel Crossmatch Result Diagrams: 05/22/18 04:35 05/22/18 04:35 Telemetry: NSR - Plan (1) Diabetes Plan: increase levemir dose pt will need to monitor BGM at home (2) Hypertension (6) CAD (coronary artery disease), habematolel coronary artery (7) UTI (urinary tract infection) Plan: recheck UA (8) S/P CABG x 4 Plan: ASA, amiodarone , statin BB OOB ambulate, wean 02 as tolerated + 6 kg , continue diuresis will need rehab at discharge start low dose RAFFAELE (1) Diabetes Qualifiers: Diabetes mellitus type: type 2 (2) Hypertension Qualifiers: Hypertension type: essential hypertension Qualified Code(s): I10 - Essential (primary) hypertension (6) CAD (coronary artery disease), habematolel coronary artery Qualifiers: [place] vs. transplanted heart: habematolel heart
[2018-05-22] MEDS: Lisinopril 5 MG Tablet PO SCH (13:06)
--- NOTE | 2018-05-22 13:34 | XR ---
EXAM DATE: 05/22/2018 1:22 PM EDT AGE/SEX: 72 years / Male INDICATIONS: Post left side chest tube removal, evaluate for pneumothorax CLINICAL DATA: This is the patient's subsequent encounter. Patient reports that signs and symptoms h ave been present for 1 week and indicates a pain score of 6/10. MEDICAL/SURGICAL HISTORY: Cardiovascular disease. Diabetes. Hypertension. CABG. COMPARISON: [facility], CHEST 1V SINGLE AP, 05/20/2018. . FINDINGS: Stable right IJ central line. Interval removal of mediastinal drain and left-sided chest tube. Lungs are hypoaerated without significant pneumothorax. Linear parenchymal opacities in the lower lung zone s are stable. Cardiomegaly mediastinal contours are within normal limits. Bony thorax is intact. CONCLUSION: 1. No significant pneumothorax following removal of mediastinal drain and left-sided chest tube. 2. Stable mild bibasilar atelectasis. Electronically signed by: Tr Finley MD 05/22/2018 1:33 PM EDT
[2018-05-22 13:58] LABS: Bacteria,Urine Rare /hpf; Bilirubin,Urine Negative (Negative); Clarity,Urine Hazy (Clear); Color,Urine Yellow (Yellw/Straw); Glucose,Urine (UA) Negative (Negative); Leukocyte Esterase,Urine Negative (Negative); Nitrite,Urine Negative (Negative); Specific Gravity,Urine 1.017 (1.002-1.035); Squamous Epithelial Cell,Urine 1 /hpf (0-5)
[2018-05-23 06:35] LABS: Calcium 8.4 mg/dL (8.5-10.1); Potassium 4.6 meq/L (3.5-5.1)
[2018-05-23] MEDS: Multivitamin/Minerals Therapeutic Tablet PO SCH (08:36)
[2018-05-23] MEDS: Amiodarone 200 MG Tablet PO SCH ×2 (08:36→22:25)
[2018-05-23] MEDS: Metoprolol Tartrate 25 MG Tablet PO SCH ×2 (08:37→22:25)
[2018-05-23] MEDS: Insulin Detemir Inj 1,000 UNIT/10 ML Vial SQ SCH ×2 (08:38→22:27)
[2018-05-23] MEDS: Polyethylene Glycol 3350 17 GM Packet PO SCH (08:38)
[2018-05-23] MEDS: Insulin NovoLOG Aspart Correctional Sugar Inj SQ SCH ×4 (08:38→22:26)
[2018-05-23] MEDS: Docusate Sodium 100 MG Capsule PO SCH ×2 (08:38→22:28)
[2018-05-23] MEDS: Lisinopril 5 MG Tablet PO SCH (08:56)
--- NOTE | 2018-05-23 09:51 | P.PNCV ---
- Note Subjective/Hospital Course: A 72-year-old male patient of Dr. Kip Walker and Dr. Anaya. Presented to the emergency room with chest pain, brought in by ambulance. apparently was admitted on 05/15/2018. Prior to that, he had some epigastric pain that radiated to both of his arms. Initially thought that it may be related to one of his medications, but also developed some leg swelling and some abdominal discomfort. He has undergone stress test in Dr. Anaya's office in 11/2017. Initially was referred to have a cardiac catheterization, but refused at that time. He also refused a nuclear stress test. He had an echocardiogram in 2017 which showed an ejection fraction of 44%, left ventricular hypertrophy, left atrial enlargement, mild mitral regurgitation, mild tricuspid regurgitation. On this admission, his EKG showed some ST and T-wave abnormality , first-degree AV block. Troponins peaked at 18.20. He was ruled in for a non- STEMI. Underwent cardiac catheterization by Dr. Anaya which showed mid LAD 90 % stenosed. The first diagonal had a 90% stenosis proximally. The proximal LAD had a 90% stenosis. The obtuse marginal had an 80% stenosis proximally, and also in the mid section had a 99% stenosis. There was total occlusion of the right coronary artery with filling of the distal right PDA. We were consulted to evaluate for coronary artery bypass grafting. The patient also was found to have some atrial flutter and was recommended for left atrial appendage ablation and/or maze procedure. PAST MEDICAL HISTORY: Includes diabetes, gout, hypertension, hyperlipidemia. 05/18 OR date changed to tomorrow on azactam for UTI BGM with some improvement was on lantus 52units at night at home 05/20/18 c/o incisional pain, especially at chest tube site 05/21/18 progressing. No complaints this morning 05/22/18 no BM since surgery / additional GI motility meds given remains in NSR on ASA recheck UA EF 40% start low dose Raffaele today 05/23 gentle diuresis + 6 kg UA unremarkable BGM improving no BM eval for dc to rehab in am Objective: Vital Signs - 24 hr 05/22/18 11:00 05/22/18 14:01 05/22/18 15:00 Temperature 98.5 F Pulse Rate 88 83 80 Respiratory Rate 20 19 Blood Pressure 146/78 H Pulse Oximetry 96 05/22/18 16:00 05/22/18 17:00 05/22/18 17:04 Temperature 98.1 F Pulse Rate 73 70 Respiratory Rate 16 20 Blood Pressure 140/72 Pulse Oximetry 95 05/22/18 17:32 05/22/18 19:00 05/22/18 20:00 Temperature 98.0 F Pulse Rate 78 85 80 Respiratory Rate 19 Blood Pressure 138/71 Pulse Oximetry 97 05/22/18 21:00 05/22/18 21:39 05/22/18 22:00 Temperature Pulse Rate 82 74 Respiratory Rate Blood Pressure Pulse Oximetry 98 05/22/18 23:00 05/23/18 00:00 05/23/18 01:00 Temperature 98.0 F Pulse Rate 71 69 86 Respiratory Rate 15 Blood Pressure 104/60 Pulse Oximetry 97 05/23/18 02:00 05/23/18 03:00 05/23/18 03:06 Temperature 98.1 F Pulse Rate 68 72 73 Respiratory Rate 15 Blood Pressure 106/60 Pulse Oximetry 96 05/23/18 05:00 05/23/18 06:00 05/23/18 07:00 Temperature Pulse Rate 72 76 75 Respiratory Rate Blood Pressure Pulse Oximetry 05/23/18 09:06 Temperature Pulse Rate Respiratory Rate Blood Pressure Pulse Oximetry 93 L GENERAL: A&O x 3 SKIN: Warm and dry. prevena dressing to chest, leg incision intact HEAD: Normocephalic. EYES: No scleral icterus. No injection or drainage. NECK: Supple, trachea midline. No JVD or lymphadenopathy. CARDIOVASCULAR: Regular rate and rhythm without murmurs, gallops, or rubs. RESPIRATORY: Breath sounds equal bilaterally. No accessory muscle use. diminished in bases GASTROINTESTINAL: Abdomen soft, non-tender, nondistended. MUSCULOSKELETAL: No cyanosis, or edema. BACK: Nontender without obvious deformity. No CVA tenderness. Labs: Laboratory Results - last 12 hr 05/23/18 05/23/18 05:13 07:26 Sodium 137 Potassium 4.6 Chloride 100 Carbon Dioxide 29.0 Anion Gap 8 BUN 28 H Creatinine 1.14 Estimated GFR 64 L POC Glucose 201 H Random Glucose 165 H Calcium 8.4 L Result Diagrams: 05/22/18 04:35 05/23/18 05:13 - Plan (1) Diabetes Plan: increase levemir dose on insulin sliding scale (2) Hypertension (6) CAD (coronary artery disease), [place] coronary artery (7) UTI (urinary tract infection) Plan: recheck UA (8) S/P CABG x 4 Plan: ASA, amiodarone , statin BB OOB ambulate, wean 02 as tolerated + 6 kg , continue diuresis will need rehab at discharge start low dose RAFFAELE (1) Diabetes Qualifiers: Diabetes mellitus type: type 2 (2) Hypertension Qualifiers: Hypertension type: essential hypertension Qualified Code(s): I10 - Essential (primary) hypertension (6) CAD (coronary artery disease), [place] coronary artery Qualifiers: [place] vs. transplanted heart: [place] heart
[2018-05-23] MEDS ORDERED: Sod Phosphate/Sod Biphosphate (Adult) Enema 133 ML Bottle RECTAL PRN (15:00)
--- NOTE | 2018-05-24 07:46 | P.PNCA ---
Subjective Interval history: The patient is concerned about his sternum. Apparently, he hit his back on a bar in the bathroom last night. He is worried that "it did something to my chest." No increase of sternal pain. Complains of gait instability. No SOB, edema, chest heaviness or pressure or palpitations. Medications and Allergies Allergies Allergy/AdvReac Type Severity Reaction Status Date / Time penicillin G Allergy Severe Hives Verified 05/15/18 09:39 Home Medications Medication Instructions Recorded Confirmed Type allopurinol 300 mg PO DAILY 05/15/18 05/15/18 History metformin 1,000 mg PO BID 05/15/18 05/15/18 History pravastatin 20 mg PO DAILY 05/15/18 05/15/18 History vitamin E 400 unit PO DAILY 05/15/18 05/15/18 History Active Medications: Active Medications Acetaminophen (Tylenol) 650 mg PO Q4H PRN PRN Reason: Headache, fever Al Hydroxide/Mg Hydroxide (Milk Of Magndanny Liq) 30 ml PO DAILY [facility] Last Admin: 05/23/18 08:38 Dose: 30 ml Albuterol (Duoneb Neb (Prn)) 1 ampul NEB Q2HR NEB PRN PRN Reason: WHEEZING Last Admin: 05/22/18 14:00 Dose: 1 ampul Amiodarone HCl (Cordarone) 400 mg PO Q12HR [facility] Last Admin: 05/23/18 22:25 Dose: 400 mg Aspirin (Aspirin Chew) 81 mg PO DAILY [facility] Last Admin: 05/23/18 08:36 Dose: 81 mg Atorvastatin Calcium (Lipitor) 40 mg PO HS [facility] Last Admin: 05/23/18 22:24 Dose: 40 mg Dextrose (D50w Vial) 50 ml IV.PUSH UNSCH PRN PRN Reason: PER HYPOGLYCEMIA PROTOCOL Diphenhydramine HCl (Benadryl) 50 mg PO HS PRN PRN Reason: SLEEP Docusate Sodium (Colace) 100 mg PO BID [facility] Last Admin: 05/23/18 22:28 Dose: Not Given Furosemide (Lasix Inj) 40 mg IV.PUSH BID@0900,1800 [facility] Last Admin: 05/23/18 17:30 Dose: 40 mg Glucagon (Glucagon Inj) 1 mg OTHER PRN PRN PRN Reason: for Hypoglycemia Protocol Sodium Chloride (Ns Inj) 500 mls @ 30 mls/hr IV.SIG .Q10H [facility] Last Admin: 05/18/18 04:53 Dose: Not Given Insulin Aspart (Novolog Insulin Correctional Sugar Inj) 0 unit SQ ACHS [facility]; Protocol Last Admin: 05/23/18 22:26 Dose: 14 unit Insulin Detemir (Levemir Inj) 25 unit SQ BID [facility] Last Admin: 05/23/18 22:27 Dose: 25 unit Lactulose (Lactulose Liq) 30 ml PO DAILY PRN PRN Reason: SEVERE CONSITIPATION Lisinopril (Prinivil) 2.5 mg PO DAILY [facility] Last Admin: 05/23/18 08:56 Dose: 2.5 mg Metformin HCl (Glucophage) 1,000 mg PO BID [facility] Last Admin: 05/23/18 22:25 Dose: 1,000 mg Metoprolol Tartrate (Lopressor) 12.5 mg PO BID [facility] Last Admin: 05/23/18 22:25 Dose: 12.5 mg Miscellaneous (Pill Splitter) 1 each OTHER [facility]1983 Multivitamins/Minerals (Theragran-M) 1 tab PO DAILY [facility] Last Admin: 05/23/18 08:36 Dose: 1 tab Ondansetron HCl (Zofran Inj) 4 mg IV.PUSH Q6H PRN PRN Reason: NAUSEA OR VOMITING Last Admin: 05/23/18 10:11 Dose: 4 mg Oxycodone/Acetaminophen (Percocet 5/325 Mg) 1 tab PO Q3H PRN PRN Reason: PAIN SCALE 1 TO 5 Last Admin: 05/24/18 07:18 Dose: 1 tab Pantoprazole Sodium (Protonix) 40 mg PO DAILY@06 [facility] Last Admin: 05/24/18 05:22 Dose: 40 mg Polyethylene Glycol (Miralax) 17 gm PO DAILY [facility] Last Admin: 05/23/18 08:38 Dose: 17 gm Potassium Chloride (Klor-Con 10) 10 meq PO BID [facility] Last Admin: 05/23/18 22:37 Dose: 10 meq Sennosides (Senokot) 8.6 mg PO HS [facility] Last Admin: 05/23/18 22:28 Dose: Not Given Sodium Chloride (Ns Flush) 2 ml IV.FLUSH BID [facility] Last Admin: 05/23/18 22:29 Dose: 2 ml Sodium Chloride (Ns Flush) 2 ml IV.FLUSH PRN PRN PRN Reason: FLUSH AFTER USING IV ACCESS Physical Exam Vital signs: Vital Signs 05/23/18 08:00 05/23/18 09:00 05/23/18 09:06 Temperature 98.1 F Pulse Rate 77 90 Respiratory Rate 18 Blood Pressure 128/63 Pulse Oximetry 93 L 05/23/18 10:00 05/23/18 11:00 05/23/18 12:00 Temperature 98.4 F Pulse Rate 88 81 81 Respiratory Rate 18 Blood Pressure 137/68 Pulse Oximetry 93 L 05/23/18 13:00 05/23/18 14:00 05/23/18 15:00 Temperature Pulse Rate 85 75 82 Respiratory Rate Blood Pressure Pulse Oximetry 05/23/18 16:00 05/23/18 17:00 05/23/18 17:08 Temperature 98.3 F Pulse Rate 90 84 Respiratory Rate 18 Blood Pressure 124/67 Pulse Oximetry 92 L 92 L 05/23/18 18:00 05/23/18 19:00 05/23/18 20:00 Temperature 99 F Pulse Rate 90 84 80 Respiratory Rate 18 Blood Pressure 134/70 Pulse Oximetry 92 L 05/23/18 21:00 05/23/18 22:00 05/23/18 23:00 Temperature Pulse Rate 80 92 H 92 H Respiratory Rate 18 Blood Pressure Pulse Oximetry 05/24/18 00:00 05/24/18 01:00 05/24/18 02:00 Temperature 98.4 F Pulse Rate 94 H 74 72 Respiratory Rate 18 Blood Pressure 136/72 Pulse Oximetry 92 L 05/24/18 03:00 05/24/18 04:00 05/24/18 04:48 Temperature 98.3 F Pulse Rate 70 70 Respiratory Rate 18 18 Blood Pressure 136/72 Pulse Oximetry 92 L 92 L 05/24/18 05:00 05/24/18 06:00 Temperature Pulse Rate 70 72 Respiratory Rate Blood Pressure Pulse Oximetry Intake & Output 05/23/18 05/24/18 05/24/18 18:59 06:59 18:59 Intake Total 1440 / 1440 720 / 720 Output Total 2500 / 2500 800 / 800 Balance -1060 / -1060 -80 / -80 Weight 103.5 kg Intake: Oral 1440 / 1440 720 / 720 Output: Urine 2500 / 2500 800 / 800 Other: Date of Last Bowel Movement 05/23/18 05/23/18 # Bowel Movements 4 0 - Constitutional no acute distress - Routine HEENT Exam Head: Present: normocephalic, atraumatic Eye: Present: EOMI ENT: Present: mucous membranes moist - Routine Neck Exam Present: supple, normal carotid upstroke - Routine Respiratory Exam Present: CTA bilaterally - Routine Cardiovascular Exam Present: RRR Comments: Sternal dressing C/D/I, tenderness to light palpation of right sternal border. - Routine Abdominal Exam Present: soft - Routine Extremities Exam Comments: No edema - Routine Skin Exam Present: intact - Routine Neurological Exam Present: alert, oriented X3 - Routine Psychiatric Exam Present: anxious - Urinary Catheter Management Indwelling Temp Sensing Catheter Cath placed during this visit: yes Reason for continuing: Hourly intake/output Insertion date: 05/19/18 Insertion time: 07:55 Results 05/22/18 04:35 05/23/18 05:13 Comprehensive Metabolic Panel 05/23/18 Range/Units 05:13 Sodium 137 (136-145) meq/L Potassium 4.6 (3.5-5.1) meq/L Chloride 100 (98-107) meq/L Carbon Dioxide 29.0 (21.0-32.0) meq/L BUN 28 H (7-18) mg/dL Creatinine 1.14 (0.60-1.30) mg/dL Calcium 8.4 L (8.5-10.1) mg/dL Intake and Output 05/23/18 05/24/18 05/24/18 22:59 06:59 14:59 Intake Total 1440 / 1440 720 / 720 Output Total 2500 / 2500 800 / 800 Balance -1060 / -1060 -80 / -80 Intake: Oral 1440 / 1440 720 / 720 Output: Urine 2500 / 2500 800 / 800 Other: Date of Last Bowel Movement 05/23/18 05/23/18 # Bowel Movements 4 0 Weight 103.5 kg - Imaging and Cardiology Imaging: Impressions Chest X-Ray 05/22/18 00:00 CONCLUSION: 1. No significant pneumothorax following removal of mediastinal drain and left- sided chest tube. 2. Stable mild bibasilar atelectasis. Assessment and Plan - Plan Assessment NSTEMI-Status post CABG with Dr. Leonard. New onset Atrial flutter s/p MAZE and left atrial appendage clipping HTN Hyperlipidemia Anxious Plan Isolated episode of Atrial flutter, converted in ER with Cardizem. Will hold off on anticoagulation at this time, status post CABG, MAZE procedure, and left atrial appendage clipping. statin, BB, ASA, FARNAZ Amiodarone CXR Patient is clear for discharge from cardiac standpoint. Would benefit from inpatient rehab. Lives alone. Very anxious. Will follow up after cleared by Dr Leonard outpatient. Will need cardiac rehab. The patient was seen and evaluated by Dr. Anaya who completed a [id number] encounter physical exam and participated in care and management and decision making. The exam, history, and the medical decision-making described in the above note were completed with the assistance of the mid-level provider. I reviewed and agree with the findings presented. I attest that I had a [id number] encounter with the patient on the same day, and personally performed and documented my assessment and findings in the medical record. Overall doing better pst cabg and maze.
[2018-05-24] MEDS: Insulin Detemir Inj 1,000 UNIT/10 ML Vial SQ SCH (09:08)
[2018-05-24] MEDS: Amiodarone 200 MG Tablet PO SCH (09:08)
[2018-05-24] MEDS: Multivitamin/Minerals Therapeutic Tablet PO SCH (09:09)
[2018-05-24] MEDS: Metoprolol Tartrate 25 MG Tablet PO SCH (09:09)
[2018-05-24] MEDS: Docusate Sodium 100 MG Capsule PO SCH (09:10)
[2018-05-24] MEDS: Polyethylene Glycol 3350 17 GM Packet PO SCH (09:10)
[2018-05-24] MEDS: Insulin NovoLOG Aspart Correctional Sugar Inj SQ SCH ×2 (09:14→12:07)
[2018-05-24] MEDS ORDERED: Lisinopril 10 MG Tablet PO SCH (09:15)
--- NOTE | 2018-05-24 09:48 | XR ---
EXAM DATE: 05/24/2018 12:00 AM EDT AGE/SEX: 72 years / Male INDICATIONS: Chest pain. CLINICAL DATA: This is the patient's subsequent encounter. Patient reports that signs and symptoms h ave been present for 1 week and indicates a pain score of 5/10. MEDICAL/SURGICAL HISTORY: Diabetes mellitus type II. Hypertension. CABG. Inguinal hernia repa ir. Hydrocelectomy. [place] [facility] [place]. . FINDINGS: Interval removal of right IJ central line. Persistent linear parenchymal opacities in the left lower lung zone. Minimal right basilar airspace disease, improved from prior exam. No significant pneumotho rax. Cardiomediastinal contours are stable. Remainder of the exam is unchanged. CONCLUSION: 1. Stable left lower lung zone atelectasis/scarring. 2. Improved aeration of the right lower lung zone. Electronically signed by: Tr Finley MD 05/24/2018 9:46 AM EDT
--- NOTE | 2018-05-24 11:27 | P.DS ---
Date of admission: 05/15/18 11:28 Primary care physician: Wendie Sandoval Attending physician on discharge: Renita Leonard Anticipated date of discharge: 05/24/18 Brief History from admission: A 72-year-old male patient of Dr. Kip Walker and Dr. Anaya. Presented to the emergency room with chest pain, brought in by ambulance. apparently was admitted on 05/15/2018. Prior to that, he had some epigastric pain that radiated to both of his arms. Initially thought that it may be related to one of his medications, but also developed some leg swelling and some abdominal discomfort. He has undergone stress test in Dr. Anaya's office in 11/2017. Initially was referred to have a cardiac catheterization, but refused at that time. He also refused a nuclear stress test. He had an echocardiogram in 2017 which showed an ejection fraction of 44%, left ventricular hypertrophy, left atrial enlargement, mild mitral regurgitation, mild tricuspid regurgitation. On this admission, his EKG showed some ST and T-wave abnormality , first-degree AV block. Troponins peaked at 18.20. He was ruled in for a non- STEMI. Underwent cardiac catheterization by Dr. Anaya which showed mid LAD 90 % stenosed. The first diagonal had a 90% stenosis proximally. The proximal LAD had a 90% stenosis. The obtuse marginal had an 80% stenosis proximally, and also in the mid section had a 99% stenosis. There was total occlusion of the right coronary artery with filling of the distal right PDA. We were consulted to evaluate for coronary artery bypass grafting. The patient also was found to have some atrial flutter and was recommended for left atrial appendage ablation and/or maze procedure. PAST MEDICAL HISTORY: Includes diabetes, gout, hypertension, hyperlipidemia. Patient update on day of discharge: pt doing well on room air , remains in NSR pain controlled , some anxiety, prn xanax ordered + BM, stable for dc to SNF DS: Diagnosis - Discharge Diagnosis (1) Diabetes Status: Acute (2) Hypertension Status: Chronic (3) Unstable angina Status: Acute (4) Atrial tachycardia Status: Acute (5) NSTEMI (non-ST elevated myocardial infarction) Status: Acute (6) CAD (coronary artery disease), [place] coronary artery Status: Acute (7) UTI (urinary tract infection) Status: Acute (8) S/P CABG x 4 Status: Acute (9) Systolic dysfunction with acute on chronic heart failure Status: Acute DS: Medications - Discharge Medications Prescriptions: alprazolam [Xanax] 0.25 mg PO Q8HR #30 tab oxycodone-acetaminophen 1 tab PO Q4H PRN #30 tab PRN Reason: Pain Scale 1 To 5 DS: Summary Hospital Course: 05/18 OR date changed to tomorrow on azactam for UTI BGM with some improvement was on lantus 52units at night at home 05/20/18 c/o incisional pain, especially at chest tube site 05/21/18 progressing. No complaints this morning 05/22/18 no BM since surgery / additional GI motility meds given remains in NSR on ASA recheck UA EF 40% start low dose Raffaele today 05/23 gentle diuresis + 6 kg UA unremarkable BGM improving no BM eval for dc to rehab in am + 05/24 on room air NSR stable for dc to SNF - Time Spent with Patient Total time spent providing and/or coordinating discharge services: Greater than 30 minutes - Quality: VTE Deep Vein Thrombosis/Pulmonary Embolism Present on Admission: No Exam Vital signs: Vital Signs 05/23/18 12:00 05/23/18 13:00 05/23/18 14:00 Temperature 98.4 F Pulse Rate 81 85 75 Respiratory Rate 18 Blood Pressure 137/68 Pulse Oximetry 93 L 05/23/18 15:00 05/23/18 16:00 05/23/18 17:00 Temperature 98.3 F Pulse Rate 82 90 84 Respiratory Rate 18 Blood Pressure 124/67 Pulse Oximetry 92 L 05/23/18 17:08 05/23/18 18:00 05/23/18 19:00 Temperature Pulse Rate 90 84 Respiratory Rate Blood Pressure Pulse Oximetry 92 L 05/23/18 20:00 05/23/18 21:00 05/23/18 22:00 Temperature 99 F Pulse Rate 80 80 92 H Respiratory Rate 18 Blood Pressure 134/70 Pulse Oximetry 92 L 05/23/18 23:00 05/24/18 00:00 05/24/18 01:00 Temperature 98.4 F Pulse Rate 92 H 94 H 74 Respiratory Rate 18 18 Blood Pressure 136/72 Pulse Oximetry 92 L 05/24/18 02:00 05/24/18 03:00 05/24/18 04:00 Temperature 98.3 F Pulse Rate 72 70 70 Respiratory Rate 18 Blood Pressure 136/72 Pulse Oximetry 92 L 05/24/18 04:48 05/24/18 05:00 05/24/18 06:00 Temperature Pulse Rate 70 72 Respiratory Rate 18 Blood Pressure Pulse Oximetry 92 L 05/24/18 07:00 05/24/18 07:44 05/24/18 08:00 Temperature 98.6 F Pulse Rate 76 76 74 Respiratory Rate 18 Blood Pressure 154/74 H Pulse Oximetry 92 L 93 L 05/24/18 09:00 05/24/18 09:06 05/24/18 10:00 Temperature Pulse Rate 74 76 Respiratory Rate 0 L Blood Pressure Pulse Oximetry Intake & Output 05/23/18 05/24/18 05/24/18 18:59 06:59 18:59 Intake Total 1440 / 1440 720 / 720 Output Total 2500 / 2500 800 / 800 Balance -1060 / -1060 -80 / -80 Weight 103.5 kg Intake: Oral 1440 / 1440 720 / 720 Output: Urine 2500 / 2500 800 / 800 Other: Date of Last Bowel Movement 05/23/18 05/23/18 # Bowel Movements 4 0 - Constitutional no acute distress - Routine HEENT Exam Head: Present: normocephalic, atraumatic Eye: Present: EOMI, PERRL, normal accommodation - Routine Neck Exam Present: supple, full ROM - Routine Chest/Breast/Axilla Exam Chest wall: Present: tenderness - Routine Respiratory Exam Present: CTA bilaterally - Routine Cardiovascular Exam Present: RRR, S1, S2 - Routine Abdominal Exam Present: soft, normoactive bowel sounds - Routine Extremities Exam Present: full ROM, pulses intact, normal capillary refill - Routine Skin Exam Present: wounds Comments: prevena dressing to chest - Routine Neurological Exam Present: alert, oriented X3, CN II-XII intact Results Procedures completed during hospitalization: CABG x 4 on 05/19/2018 ARMSTRONG to LAD SVG to D1 SVG to OM1 SVG to PDA Labs on day of discharge: Labs from last 24 hours 05/24/18 05/23/18 05/23/18 07:20 20:40 16:36 POC Glucose 116 H 241 H 117 H - Impressions ITS Impressions Carotid Doppler Study 05/16/18 16:33 CONCLUSION: 1. Right Internal Carotid Artery: Mild visible plaque without hemodynamically significant stenosis. 2. Left Internal Carotid Artery: Mild visible plaque without hemodynamically significant stenosis. Lower Extremity Ultrasound 05/16/18 16:33 CONCLUSION: 1. The study is negative for lower extremity deep venous thrombosis. Venous Doppler Study 05/16/18 16:33 CONCLUSION: 1. The study is negative for bilateral lower extremity deep venous thrombosis. Chest X-Ray 05/24/18 00:00 CONCLUSION: 1. Stable left lower lung zone atelectasis/scarring. 2. Improved aeration of the right lower lung zone. Discharge Plan - Discharge Disposition Patient Disposition: 03 Discharge to SNF - Discharge Condition Condition: Fair - Discharge Order Discharge Orders: Discharge Order (Routine); Ordered 05/24/18 Ordered By: Ana Lilia Vu - Discharge Details Anticipated Discharge Date: 05/24/18 - Physicians Team Attending Provider: Renita Leonard Other Providers: Kimberly Anaya MD ; [employer] ; Renita Leonard MD ; [facility]
[2018-05-24 12:02] VITALS: BP 125/65; RESP 18; TEMP 98.2; O2SAT 95
[2018-05-24] MEDS ORDERED: ALPRAZolam 0.25 MG Tablet PO SCH (14:00)
[2018-05-24 14:25] VITALS: PULSE 80
== END 2018-05-24 15:27 ==
LOC: NEPE 09:36 → NEDA 11:28 → HCIS 15:30 → HCPC 05-16 20:05 → HCVI 05-19 12:19 → HCPC 05-22 14:47
PROVIDERS: ADMIT Thoracic Surgery (Cardiothoracic Vascular Surgery); ATTEND Thoracic Surgery (Cardiothoracic Vascular Surgery)

== ENCOUNTER 2018-06-07 17:42 | Observation (INO) ==
--- NOTE | 2018-06-07 18:19 | ED ---
HPI General Chief Complaint: Chest Pain Stated Complaint: chest pain Time Seen by Provider: 06/07/18 17:55 Source: patient Mode of arrival: EMS Limitations: no limitations History of Present Illness HPI narrative: The patient is a 72-year-old male who presents to the emergency department via EMS from the assisted living facility/short-term rehabilitation [facility] for elevated blood pressure. The patient recently underwent coronary artery bypass grafting by the cardiothoracic surgeon, Dr. Serna. The patient was discharged to the rehabilitation center and notes over the last 5 days, he has symptoms when he walks approximately 500 feet to the gym for rehab, and today it was noted his blood pressure was elevated. The patient states his blood pressure had a systolic in the 200s and diastolic in the 90s. The symptoms have been ongoing for 5 days and include occasional dizziness, pain across the shoulder blades that radiates into the arms, nausea, and diaphoresis. The patient denies any chest pain and states the symptoms are different than the symptoms he had prior to the coronary artery bypass grafting. Symptoms are mild to moderate. The patient is asymptomatic upon arrival. MD complaint: Reports other STEMI Alert: No Onset (ago): day(s) Duration: intermittent Onset: during exertion Pain location: Reports other Severity: mild Severity scale (1-10): 4 Quality: Reports aching Pain radiation: Reports RUE and LUE Relieving factors: rest Exacerbating factors: exertion Context: Reports recent surgery Associated symptoms: Reports nausea and diaphoresis Treatments prior to arrival chest pain: Reports none Related Data Home Medications Medication Instructions Recorded Confirmed allopurinol 300 mg PO DAILY 05/15/18 06/07/18 vitamin E 400 unit PO DAILY 05/15/18 06/07/18 atorvastatin 40 mg PO DAILY 06/07/18 06/07/18 metoprolol tartrate 12.5 mg PO BID 06/07/18 06/07/18 Previous Rx's Medication Instructions Recorded alprazolam [Xanax] 0.25 mg PO Q8HR #30 tab 05/24/18 amiodarone 200 mg PO Q12HR #28 tab 05/24/18 aspirin 81 mg PO DAILY tab 05/24/18 atorvastatin 40 mg PO HS tab 05/24/18 docusate sodium [DOK] 100 mg PO BID cap 05/24/18 insulin aspart U-100 [Novolog 0 unit SUBCUT ACHS ml 05/24/18 U-100 Insulin aspart] insulin detemir U-100 [Levemir 25 unit SUBCUT BID ml 05/24/18 U-100 Insulin] lisinopril 10 mg PO DAILY tab 05/24/18 haxvpplx-onxq-WM-calcium-mins 1 tab PO DAILY tab 05/24/18 [Thera M Plus (ferrous fumarat)] oxycodone-acetaminophen 1 tab PO Q4H PRN #30 tab 05/24/18 polyethylene glycol 3350 17 gm PO DAILY ea 05/24/18 Allergies Allergy/AdvReac Type Severity Reaction Status Date / Time penicillin G Allergy Severe Hives Verified 06/07/18 17:59 Review of Systems ROS: all other systems reviewed are negative [facility] Medical History Medical History Coronary artery disease (Acute) Diabetes (Acute) Gout (Acute) HTN (hypertension) (Acute) High cholesterol (Acute) Family History Family History Other Coronary artery disease Social History Social History Substance History: No History of Abuse Second Hand Smoke Exposure: No Smoking Status: Former smoker How Often Do You Have a Drink Containing Alcohol: Never Immunization History Tetanus Immunization: <5 Years Exam Narrative Exam Narrative: GENERAL: Awake, alert, pleasant 72-year-old male who appears his stated age and is in Tory distress. SKIN: Focused skin assessment warm/dry. HEAD: Atraumatic. Normocephalic. EYES: Pupils equal and round. No scleral icterus. No injection or drainage. ENT: No nasal bleeding or discharge. Mucous membranes pink and moist. NECK: Trachea midline. No JVD. CARDIOVASCULAR: Regular rate and rhythm. No murmur appreciated. Healing sternal scar with Steri-Strips in place. RESPIRATORY: No accessory muscle use. Clear to auscultation. Breath sounds equal bilaterally. GASTROINTESTINAL: Abdomen soft, non-tender, nondistended. MUSCULOSKELETAL: No obvious deformities. No clubbing. No cyanosis. No edema. Healing scar the medial aspect left lower extremity with some surrounding old appearing ecchymosis. NEUROLOGICAL: Awake and alert. No obvious cranial nerve deficits. Motor grossly within normal limits. Normal speech. Nonfocal. PSYCHIATRIC: Appropriate mood and affect; insight and judgment normal. Course Initial Documented Vital Signs Pulse Rate 84 06/07/18 18:05 Respiratory Rate 22 06/07/18 18:05 Blood Pressure 199/94 H 06/07/18 18:05 Pulse Oximetry 95 06/07/18 18:05 Last Documented Vital Signs Temperature 98.2 F 06/07/18 18:12 Pulse Rate 80 06/08/18 00:46 Respiratory Rate 18 06/08/18 00:46 Blood Pressure 145/68 H 06/08/18 00:46 Pulse Oximetry 97 06/08/18 00:46 Sign Out Sign Out Data: Patient Sign Out occurred on 06/07/18 at 19:14. Patient's care was discussed, and care was transferred from Ajay Trivedi MD to Apurva Herrera MD. Sign Out Comment: 72-year-old male who is status post CABG in April by Dr. Serna. Presents with elevated blood pressure, mild nausea, scapular pain radiating down his arms, pain is different than pain prior to the CABG. Patient has an appointment tomorrow at [address] Serna. Reassess patient after laboratory evaluation and discuss patient with long thoracic surgeon. If workup is unremarkable the patient may be able to be discharged back to the rehab facility with outpatient follow-up tomorrow as scheduled at 11 AM. Last updated by Ajay Trivedi MD at 06/07/18 18:39 Post-Handoff Eval: Accepted in transfer of care from Dr. Trivedi for follow-up of pending CT and patient disposition Medical Decision Making MDM Narrative Medical decision making narrative: IV was established, labs are drawn and sent, and the patient was placed on cardiac telemetry monitoring and continuous pulse oximetry monitoring. EKG was ordered and interpreted. Chest x-ray was obtained. The patient was signed out to the oncoming physician at 7 PM with laboratory evaluation and reevaluation the patient pending. The patient does have an appointment tomorrow at 11 [address] with his cardiothoracic surgeon. The patient is currently on enalapril 10 mg daily, Norvasc 2.5 mg daily, and metoprolol 12.5 mg twice a day. Patient's case discussed with on-call thoracic surgeon Dr. Moran who recommends patient be started on Xarelto for atrial fibrillation admitted as observation with consult to Dr. Serna in the a.m. [facility] Dr[facility] Jackson who graciously accepts the patient for admission with plan for starting anticoagulation and consult to his cardiothoracic surgeon Dr. Leonard Medical Screen Exam Complete: Yes Emergency Medical Condition: Yes Differential Diagnosis Differential Diagnosis: Differential diagnosis includes hypertensive urgency, hypertensive emergency, ACS, postoperative complication, Herve syndrome, pericarditis, myocarditis, pericardial effusion, pleural effusion. Medical Records Medical records reviewed: Yes I reviewed the patient's medical records. Lab Data Lab results reviewed: Yes I reviewed the patient's lab results. Result diagrams: 06/07/18 18:16 06/07/18 18:16 Lab Results 06/07/18 06/07/18 06/07/18 Range/Units 18:16 18:16 18:16 WBC 10.5 (4.0-11.0) th/mm3 RBC 4.04 L (4.50-5.90) mil/mm3 Hgb 12.1 L (13.0-17.0) gm/dL Hct 35.2 L (39.0-51.0) % MCV 87.0 (80.0-100.0) fL MCH 29.9 (27.0-34.0) pg MCHC 34.3 (32.0-36.0) % RDW 13.9 (11.6-17.2) % Plt Count 565 H D (150-450) th/mm3 MPV 7.5 (7.0-11.0) fL Neut % (Auto) 76.8 H (16.0-70.0) % Lymph % (Auto) 10.1 (9.0-44.0) % Webb % (Auto) 9.4 H (0.0-8.0) % Eos % (Auto) 3.2 (0.0-4.0) % Baso % (Auto) 0.5 (0.0-2.0) % Neut # (Auto) 8.1 H (1.8-7.7) th/mm3 Lymph # (Auto) 1.1 (1.0-4.8) th/mm3 Webb # (Auto) 1.0 H (0.0-0.9) th/mm3 Eos # (Auto) 0.3 (0.0-0.4) th/mm3 Baso # (Auto) 0.1 (0.0-0.2) th/mm3 WBC Differential . Differential Comment Auto diff final Sodium 137 (136-145) meq/L Potassium 4.4 (3.5-5.1) meq/L Chloride 103 (98-107) meq/L Carbon Dioxide 24.2 (21.0-32.0) meq/L Anion Gap 10 (5-15) meq/L BUN 19 H (7-18) mg/dL Creatinine 1.45 H (0.60-1.30) mg/dL Estimated GFR 48 L (>89) mL/min Random Glucose 154 H (74-106) mg/dL Calcium 9.4 (8.5-10.1) mg/dL Magnesium 2.1 (1.5-2.5) mg/dL Total Bilirubin 0.4 (0.2-1.0) mg/dL AST 17 (15-37) U/L ALT 21 (12-78) U/L Alkaline Phosphatase 93 (45-117) U/L Total Creatine Kinase 60 (39-308) U/L Troponin I 0.06 H (0.02-0.05) ng/mL B-Natriuretic Peptide 220 H (0-100) pg/mL Total Protein 8.1 (6.4-8.2) g/dL Albumin 3.4 (3.4-5.0) g/dL 06/07/18 Range/Units 20:15 WBC (4.0-11.0) th/mm3 RBC (4.50-5.90) mil/mm3 Hgb (13.0-17.0) gm/dL Hct (39.0-51.0) % MCV (80.0-100.0) fL MCH (27.0-34.0) pg MCHC (32.0-36.0) % RDW (11.6-17.2) % Plt Count (150-450) th/mm3 MPV (7.0-11.0) fL Neut % (Auto) (16.0-70.0) % Lymph % (Auto) (9.0-44.0) % Webb % (Auto) (0.0-8.0) % Eos % (Auto) (0.0-4.0) % Baso % (Auto) (0.0-2.0) % Neut # (Auto) (1.8-7.7) th/mm3 Lymph # (Auto) (1.0-4.8) th/mm3 Webb # (Auto) (0.0-0.9) th/mm3 Eos # (Auto) (0.0-0.4) th/mm3 Baso # (Auto) (0.0-0.2) th/mm3 WBC Differential Differential Comment Sodium (136-145) meq/L Potassium (3.5-5.1) meq/L Chloride (98-107) meq/L Carbon Dioxide (21.0-32.0) meq/L Anion Gap (5-15) meq/L BUN (7-18) mg/dL Creatinine (0.60-1.30) mg/dL Estimated GFR (>89) mL/min Random Glucose (74-106) mg/dL Calcium (8.5-10.1) mg/dL Magnesium (1.5-2.5) mg/dL Total Bilirubin (0.2-1.0) mg/dL AST (15-37) U/L ALT (12-78) U/L Alkaline Phosphatase (45-117) U/L Total Creatine Kinase (39-308) U/L Troponin I 0.07 H (0.02-0.05) ng/mL B-Natriuretic Peptide (0-100) pg/mL Total Protein (6.4-8.2) g/dL Albumin (3.4-5.0) g/dL Imaging Data Radiologist's impression: Chest X-Ray 06/07/18 18:12 CONCLUSION: Suspected minimal scarring or atelectasis at the lateral left lung. Thoracic Aorta CT 06/07/18 18:56 CONCLUSION: 1. No evidence for aortic dissection as questioned. 2. Very central pulmonary arteries are patent. 3. Stable focal 3 cm distal aortic aneurysm containing small to moderate amount of eccentric mural thrombus. No evidence for leak or rupture. 4. Trace left sided pleural effusion with mild bibasilar airspace disease, presumably compressive atelectasis. Maori considerations include chronic aspiration. 5. Prominent coronary artery calcifications. 6. Multiple indeterminate density bilateral cystic renal lesions which appear grossly stable in size from prior examination and therefore likely benign in etiology. 7. Mild sigmoid diverticulosis. ECG Data EKG Prior to Arrival: No Attestation: I personally reviewed and interpreted this ECG as follows: Interpretation: EKG reveals sinus rhythm with first-degree AV block, NH interval 260 ms. Q waves noted in lead III. Discharge Plan Discharge Disposition Patient Disposition: 30 Still Patient Discharge Condition Condition: Stable Discharge Details Diagnosis: Atrial fibrillation with rapid ventricular response, Chest pain Physicians Team ED Provider: Apurva Herrera Attending Provider: Cristina Jackson Other Providers: [facility],Insurance ; Renita Leonard Discharge Interventions Interventions: ED Discharge Assessment Last Done: 06/08/18 00:54 Vital Signs Last Done: 06/07/18 18:12 Status ED Status: Admitted Observation Patient
[2018-06-07 18:40] LABS: Baso # (Auto) 0.1 th/mm3 (0.0-0.2); Baso % (Auto) 0.5 % (0.0-2.0); Eos # (Auto) 0.3 th/mm3 (0.0-0.4); Eos % (Auto) 3.2 % (0.0-4.0); Hematocrit 35.2 % (39.0-51.0); Hemoglobin 12.1 gm/dL (13.0-17.0); Lymph # (Auto) 1.1 th/mm3 (1.0-4.8); Lymph % (Auto) 10.1 % (9.0-44.0); Mean Corpuscular HGB Conc 34.3 % (32.0-36.0); Mean Corpuscular Hemoglobin 29.9 pg (27.0-34.0); Mean Platelet Volume 7.5 fL (7.0-11.0); Mono % (Auto) 9.4 % (0.0-8.0); Neut # (Auto) 8.1 th/mm3 (1.8-7.7); Neut % (Auto) 76.8 % (16.0-70.0); Platelet Count 565 th/mm3 (150-450); Red Blood Count 4.04 mil/mm3 (4.50-5.90); Red Cell Distribution Width 13.9 % (11.6-17.2); White Blood Count 10.5 th/mm3 (4.0-11.0)
[2018-06-07 18:48] LABS: Albumin 3.4 g/dL (3.4-5.0); Anion Gap 10 meq/L (5-15); Aspartate Aminotransferase 17 U/L (15-37); Blood Urea Nitrogen 19 mg/dL (7-18); Calcium 9.4 mg/dL (8.5-10.1); Carbon Dioxide 24.2 meq/L (21.0-32.0); Chloride 103 meq/L (98-107); Glomerular Filtration Rate 48 mL/min (>89); Glucose,Random 154 mg/dL (74-106); Magnesium 2.1 mg/dL (1.5-2.5); Potassium 4.4 meq/L (3.5-5.1); Sodium 137 meq/L (136-145)
[2018-06-07 18:53] LABS: Alanine Aminotransferase 21 U/L (12-78); Alkaline Phosphatase 93 U/L (45-117); Total Protein 8.1 g/dL (6.4-8.2); Troponin I 0.06 ng/mL (0.02-0.05)
[2018-06-07 18:54] LABS: Creatine Kinase 60 U/L (39-308)
--- NOTE | 2018-06-07 18:58 | XR ---
EXAM DATE: 06/07/2018 6:12 PM EDT AGE/SEX: 72 years / Male INDICATIONS: Chest pain 45 min before arriving to ED. CLINICAL DATA: This is the patient's initial encounter. Patient reports that signs and symptoms have been present for 1 day and indicates a pain score of 4/10. MEDICAL/SURGICAL HISTORY: . Diabetes mellitus type II. Hypertension . CABG. Inguinal hernia re pair. Hydrocelectomy. COMPARISON: C, CHEST 1V SINGLE AP, 05/24/2018. . FINDINGS: The patient is status post sternotomy. The heart size is normal. There some minimal linear density se en at the left lateral base. The right lung is grossly clear. No effusion is seen. CONCLUSION: Suspected minimal scarring or atelectasis at the lateral left lung. Electronically signed by: Gt Morris MD 06/07/2018 6:56 PM EDT
[2018-06-07] MEDS ORDERED: Amiodarone 200 MG Tablet PO ONE (19:58)
[2018-06-07] MEDS ORDERED: Metoprolol Tartrate 25 MG Tablet PO ONE (19:58)
--- NOTE | 2018-06-07 20:04 | CT ---
EXAM DATE: 06/07/2018 7:06 PM EDT AGE/SEX: 72 years / Male INDICATIONS: Chest pain; possible dissection. CLINICAL DATA: This is the patient's initial encounter. Patient reports that signs and symptoms have been present for 1 day and indicates a pain score of 7/10. MEDICAL/SURGICAL HISTORY: Diabetes. Hypertension. CABG. RADIATION DOSE: 10.32 CTDI (mGy) COMPARISON: [facility] [place], CT ABDOMEN & PELVIS W/O CONTRAST, 05/08/2013. . TECHNIQUE: Volumetric scanning was performed using a multi-row detector CT scanner during bolus infu elda of 80 ml Omnipaque 350 (iohexol) nonionic water-soluble contrast as a single exam dose. The da ta was post processed with a variety of visualization algorithms including full volume maximum intens ity projection, multi-planar sliding thin slab reformation, curved planar reformation, and surface re ndering techniques. Using automated exposure control and adjustment of the mA and/or kV according to patient size, radiation dose was kept as low as reasonably achievable to obtain optimal diagnostic q uality images. DICOM format image data is available electronically for review and comparison. FINDINGS: Angiographic Findings: Ascending: Normal in [place] without evidence for dissection. Arch: Normal 3 vessel arch anatomy. Proximal arch vessels are patent. Arch is normal in caliber witho ut dissection. Descending: Normal in [place] without evidence for dissection. Abdominal Aorta: Focal stable distal abdominal aortic aneurysm just above the bifurcation measuring up to 3 cm. Aneurysm sac contains eccentric to moderate mural thrombus. More proximally the infrarena l aorta measures 2.2 cm. No significant periaortic stranding. Mild atherosclerotic calcifications of the distal aorta. Iliacs: Diffusely calcified iliac arteries which are minimally ectatic. Hypogastric arteries are vaughan nt. External carotid arteries are patent. Common femoral arteries are patent bilaterally. Renal Arteries: Mild stenosis of the renal artery origins secondary to calcified plaque. Mesenteric Arteries: Nonstandard celiac anatomy with direct origin of the hepatic artery from the abd ominal aorta. SMA is patent. CELIA is patent.: General Findings: LUNGS: Minimal airspace consolidation in the posterior lung bases bilaterally. Mild linear parenchym al scarring in the lingula and superior segment of the right lower lobe. PLEURA: Trace left-sided pleural effusion. MEDIASTINUM: Heart is grossly unremarkable without pericardial effusion. Prominent coronary artery c alcifications. Central main pulmonary arteries are patent. No significant mediastinal adenopathy. LIVER: The liver has a homogeneous density without space-occupying lesion. There is no dilation of t he biliary tree. SPLEEN: Homogeneous density without enlargement. PANCREAS: Unremarkable without mass or calcification. KIDNEYS: Kidneys are symmetrical in size. There are multiple small calyceal calculi measuring 2 to 5 mm in the left kidney. This are grossly unchanged from prior exam. Multiple bilateral hypodense cyst ic lesions with indeterminate density are noted. 2 dominant lesions are grossly stable in size measur ing 3.2 and 2.7 cm in the superior pole of the right kidney and 4.4 cm and 2 cm in the mid left kidne y. ADRENAL GLANDS: Unremarkable. BOWEL/MESENTERY: Mild sigmoid diverticulosis. Bowel loops are normal in caliber without evidence for obstruction. No free fluid or drainable fluid collections. No free air. ABDOMINAL WALL: Intact. RETROPERITONEUM: No evidence of adenopathy in the retrocrural, para-aortic, or deep pelvic regions. BLADDER: Contours are smooth. REPRODUCTIVE: No abnormal masses or calcifications seen. BONY STRUCTURES: Mild degenerative spondylosis of the lower lumbar spine. CONCLUSION: 1. No evidence for aortic dissection as questioned. 2. Very central pulmonary arteries are patent. 3. Stable focal 3 cm distal aortic aneurysm containing small to moderate amount of eccentric mural t hrombus. No evidence for leak or rupture. 4. Trace left sided pleural effusion with mild bibasilar airspace disease, presumably compressive a telectasis. Indonesian considerations include chronic aspiration. 5. Prominent coronary artery calcifications. 6. Multiple indeterminate density bilateral cystic renal lesions which appear grossly stable in size from prior examination and therefore likely benign in etiology. 7. Mild sigmoid diverticulosis. Electronically signed by: Tr Finley MD 06/07/2018 8:03 PM EDT
--- NOTE | 2018-06-07 22:27 | ECG ---
Date Performed: 06/07/2018 Time Performed: 19:44:47 PTAGE: 72 years EKG: ATRIAL FIBRILLATION POSSIBLE INFERIOR MYOCARDIAL INFARCTION ABNORMAL RHYTHM ECG PREVIOUS TRACING : 05/15/2018 21.12 Compared to previous tracing, atrial fibrillation has repla raphael Sinus rhythm . DOCTOR: Speedy Justin Interpretating Date/Time 06/07/2018 22:26:29
[2018-06-07] MEDS ORDERED: Rivaroxaban 15 MG Tablet PO ONE (23:40)
[2018-06-08] MEDS ORDERED: Acetaminophen 325 MG Tablet PO PRN (00:21)
[2018-06-08] MEDS ORDERED: Bisacodyl 10 MG Supp RECTAL PRN (00:21)
[2018-06-08] MEDS ORDERED: Dextrose 50% in Water 50 ML Vial IV.PUSH PRN (00:25)
--- NOTE | 2018-06-08 00:35 | P.HP ---
History of Present Illness Service: [facility] Primary Care Physician: Wendie Sandoval History of Present Illness: 72-year-old male with a past medical history significant for coronary artery disease, status post recent CABG, hypertension, hyperlipidemia, diabetes mellitus and gout presents to the emergency department for the evaluation of hypertension. The patient was in rehabilitation following his bypass grafting when he noted over the last 5 days he started to have chest pain that radiates to his back and down his bilateral upper extremities, nausea, dizziness and diaphoresis. He denies any shortness of breath. While in the emergency department undergoing evaluation, the patient was noted to be in atrial fibrillation with rapid ventricular response. He states he had chest pain symptoms at that time. He is currently in normal sinus rhythm, rate controlled and symptom-free. He denies any abdominal pain. No nausea/vomiting/diarrhea. No lateralizing signs/symptoms. No fever/chills. Review of Systems All other systems reviewed negative except as stated in HPI PMFSH - History History Provided By: Patient - Medical History Medical History: Medical History (Last Updated 06/08/18 @ 00:29 by Cristina Jackson MD) Coronary artery disease Diabetes Gout HTN (hypertension) High cholesterol - Surgical History Surgical History: Surgical History (Last Reviewed 06/08/18 @ 00:29 by Cristina Jackson MD) Hx of CABG H/O cardiac catheterization - Family History Family History: Family History (Last Updated 06/08/18 @ 00:30 by Cristina Jackson MD) Other Coronary artery disease - Tobacco History Second Hand Smoke Exposure: No Tobacco Use In Past 30 Days: No Smoking Status: Former smoker - Alcohol History How Often Do You Have a Drink Containing Alcohol: Never - Substance Use History Substance History: No History of Abuse - Immunization History Tetanus Immunization: <5 Years Medications and Allergies Active Medications: Active Medications Acetaminophen (Tylenol) 650 mg PO Q4H PRN PRN Reason: Temp > 100.4 Allopurinol (Zyloprim) 300 mg PO DAILY BARBI Sodium Chloride (Ns Flush) 2 ml IV.FLUSH UNSCH PRN PRN Reason: FLUSH AFTER USING IV ACCESS Allergies Allergy/AdvReac Type Severity Reaction Status Date / Time penicillin G Allergy Severe Hives Verified 06/07/18 17:59 Home Medications Medication Instructions Recorded Confirmed Type allopurinol 300 mg PO DAILY 05/15/18 06/07/18 History vitamin E 400 unit PO DAILY 05/15/18 06/07/18 History atorvastatin 40 mg PO DAILY 06/07/18 06/07/18 History metoprolol tartrate 12.5 mg PO BID 06/07/18 06/07/18 History Exam Vital signs: Vital Signs 06/07/18 18:05 06/07/18 18:12 06/07/18 18:46 Temperature 98.2 F Pulse Rate 84 Respiratory Rate 22 Blood Pressure 199/94 H Pulse Oximetry 95 98 06/07/18 19:38 06/07/18 19:39 06/07/18 22:40 Temperature Pulse Rate 104 H 92 H 82 Respiratory Rate 18 18 20 Blood Pressure 216/103 H 189/108 H 120/63 Pulse Oximetry 96 94 L 94 L Narrative: Gen.: No acute distress Head: Normocephalic. Atraumatic. EENT: Pupils equal round and reactive to light. Nose without drainage. Airway intact. Throat without injection. Cardiovascular: Regular rate and rhythm. No murmurs, rubs or gallops. Respiratory: Lungs clear to auscultation bilaterally. No wheezes or rhonchi. Abdomen: Soft, nontender, nondistended. No peritoneal signs. Musculoskeletal: No gross deformities. No edema. Skin: No obvious rashes or erythema. Neuro: Sensory and motor grossly intact. Cranial nerves II through XII grossly intact. Results - Labs CBC & Chem 7: 06/07/18 18:16 06/07/18 18:16 Labs: Laboratory Results - last 24 hr 06/07/18 06/07/18 06/07/18 18:16 18:16 18:16 WBC 10.5 RBC 4.04 L Hgb 12.1 L Hct 35.2 L MCV 87.0 MCH 29.9 MCHC 34.3 RDW 13.9 Plt Count 565 H D MPV 7.5 Neut % (Auto) 76.8 H Lymph % (Auto) 10.1 [place] % (Auto) 9.4 H Eos % (Auto) 3.2 Baso % (Auto) 0.5 Neut # (Auto) 8.1 H Lymph # (Auto) 1.1 [place] # (Auto) 1.0 H Eos # (Auto) 0.3 Baso # (Auto) 0.1 WBC Differential . Differential Comment Auto diff final Sodium 137 Potassium 4.4 Chloride 103 Carbon Dioxide 24.2 Anion Gap 10 BUN 19 H Creatinine 1.45 H Estimated GFR 48 L Random Glucose 154 H Calcium 9.4 Magnesium 2.1 Total Bilirubin 0.4 AST 17 ALT 21 Alkaline Phosphatase 93 Total Creatine Kinase 60 Troponin I 0.06 H B-Natriuretic Peptide 220 H Total Protein 8.1 Albumin 3.4 06/07/18 20:15 WBC RBC Hgb Hct MCV MCH MCHC RDW Plt Count MPV Neut % (Auto) Lymph % (Auto) [place] % (Auto) Eos % (Auto) Baso % (Auto) Neut # (Auto) Lymph # (Auto) [place] # (Auto) Eos # (Auto) Baso # (Auto) WBC Differential Differential Comment Sodium Potassium Chloride Carbon Dioxide Anion Gap BUN Creatinine Estimated GFR Random Glucose Calcium Magnesium Total Bilirubin AST ALT Alkaline Phosphatase Total Creatine Kinase Troponin I 0.07 H B-Natriuretic Peptide Total Protein Albumin - Imaging Impressions Chest X-Ray 06/07/18 18:12 CONCLUSION: Suspected minimal scarring or atelectasis at the lateral left lung. Thoracic Aorta CT 06/07/18 18:56 CONCLUSION: 1. No evidence for aortic dissection as questioned. 2. Very central pulmonary arteries are patent. 3. Stable focal 3 cm distal aortic aneurysm containing small to moderate amount of eccentric mural thrombus. No evidence for leak or rupture. 4. Trace left sided pleural effusion with mild bibasilar airspace disease, presumably compressive atelectasis. [place] considerations include chronic aspiration. 5. Prominent coronary artery calcifications. 6. Multiple indeterminate density bilateral cystic renal lesions which appear grossly stable in size from prior examination and therefore likely benign in etiology. 7. Mild sigmoid diverticulosis. Caprini VTE Risk Assessment Caprini VTE Risk Assessment: Moderate/High Risk (score >= 2) Caprini Risk Assessment Model: Point Value = 1 Point Value = 2 Point Value = 3 Point Value = 5 Age 41-60 Minor surgery BMI > 25 kg/m2 Swollen legs Varicose veins or History of unexplained or recurrent spontaneous Oral contraceptives or hormone replacement Sepsis (< 1 month) Serious lung disease, including pneumonia (< 1 month) Abnormal pulmonary function Acute myocardial infarction Congestive heart failure (< 1 month) History of inflammatory bowel disease Medical patient at bed rest Age 61-74 Arthroscopic surgery Major open surgery (> 45 min) Laparoscopic surgery (> 45 min) Malignancy Confined to bed (> 72 hours) Immobilizing plaster cast Central venous access Age >= 75 History of VTE Family history of VTE Factor V Leiden Prothrombin [id number] Lupus anticoagulant Anticardiolipin antibodies Elevated serum homocysteine Heparin-induced thrombocytopenia Other congenital or acquired thrombophilia Stroke (< 1 month) Elective arthroplasty Hip, pelvis, or leg fracture Acute spinal cord injury (< 1 month) Prophylaxis Regimen: Total Risk Factor Score Risk Level Prophylaxis Regimen 0-1 Low Early ambulation 2 Moderate Order ONE of the following: *Sequential Compression Device (SCD) *Heparin 5000 units SQ BID 3-4 Higher Order ONE of the following medications: *Heparin 5000 units SQ TID *Enoxaparin/Lovenox 40 mg SQ daily (WT < 150 kg, CrCl > 30 mL/min) *Enoxaparin/Lovenox 30 mg SQ daily (WT < 150 kg, CrCl > 10-29 mL/min) *Enoxaparin/Lovenox 30 mg SQ BID (WT < 150 kg, CrCl > 30 mL/min) AND/OR *Sequential Compression Device (SCD) 5 or more Highest Order ONE of the following medications: *Heparin 5000 units SQ TID (Preferred with Epidurals) *Enoxaparin/Lovenox 40 mg SQ daily (WT < 150 kg, CrCl > 30 mL/min) *Enoxaparin/Lovenox 30 mg SQ daily (WT < 150 kg, CrCl > 10-29 mL/min) *Enoxaparin/Lovenox 30 mg SQ BID (WT < 150 kg, CrCl > 30 mL/min) AND *Sequential Compression Device (SCD) Assessment and Plan - Plan Assessment/plan: 1. Paroxysmal A. fib status post CABG/coronary artery disease Cardiothoracic surgery, Dr. Leonard consulted, appreciate assistance Initiated anticoagulation with Xarelto Continue amiodarone, metoprolol Telemetry 2. Hypertension/hypertensive urgency Blood pressure 216/103 on arrival Resolved with PO metoprolol Continue home metoprolol, lisinopril 3. SHAINA Cr 1.45, baseline 1.2 Monitor renal function 3. Diabetes mellitus Continue Levemir Sliding-scale insulin Monitor blood sugar 4. Gout/hyperlipidemia Continue home medications FEN Cardiac diet Electrolytes: Monitor and replete as needed Xarelto
[2018-06-08] MEDS: Insulin NovoLOG Aspart Correctional Sugar Inj SQ SCH ×5 (02:10→20:18)
[2018-06-08] MEDS: ALPRAZolam 0.25 MG Tablet PO SCH ×2 (05:26→14:01)
[2018-06-08 07:33] LABS: Baso # (Auto) 0.1 th/mm3 (0.0-0.2); Baso % (Auto) 0.7 % (0.0-2.0); Eos # (Auto) 0.4 th/mm3 (0.0-0.4); Eos % (Auto) 5.1 % (0.0-4.0); Hematocrit 34.4 % (39.0-51.0); Hemoglobin 11.6 gm/dL (13.0-17.0); Lymph # (Auto) 1.2 th/mm3 (1.0-4.8); Lymph % (Auto) 13.9 % (9.0-44.0); Mean Corpuscular HGB Conc 33.8 % (32.0-36.0); Mean Corpuscular Hemoglobin 29.4 pg (27.0-34.0); Mean Platelet Volume 7.3 fL (7.0-11.0); Mono # (Auto) 0.9 th/mm3 (0.0-0.9); Mono % (Auto) 10.8 % (0.0-8.0); Neut % (Auto) 69.5 % (16.0-70.0); Platelet Count 542 th/mm3 (150-450); Red Blood Count 3.95 mil/mm3 (4.50-5.90); Red Cell Distribution Width 14.1 % (11.6-17.2); White Blood Count 8.6 th/mm3 (4.0-11.0)
[2018-06-08 07:52] LABS: Carbon Dioxide 24.8 meq/L (21.0-32.0); Potassium 4.4 meq/L (3.5-5.1)
[2018-06-08] MEDS: Allopurinol 300 MG Tablet PO SCH (08:42)
[2018-06-08] MEDS: Lisinopril 10 MG Tablet PO SCH (08:43)
[2018-06-08] MEDS: Rivaroxaban 15 MG Tablet PO SCH ×2 (08:43→20:17)
[2018-06-08] MEDS: Insulin Detemir Inj 1,000 UNIT/10 ML Vial SQ SCH ×2 (08:44→20:17)
[2018-06-08] MEDS: Senna/Docusate Sodium 8.6/50 MG Tablet PO SCH ×2 (08:44→20:18)
[2018-06-08] MEDS ORDERED: Amiodarone 200 MG Tablet PO SCH (09:00)
[2018-06-08] MEDS ORDERED: Metoprolol Tartrate 25 MG Tablet PO SCH (09:00)
--- NOTE | 2018-06-08 09:11 | P.PNCV ---
- Note Subjective/Hospital Course: 72-year-old male / known to our service / was recent discharged from the hospital post op CABG x 4 / Maze procedure 05/19/18/ discharged to [facility] 05/25 was doing ok , up until about 4-5 days ago when he felt fatigued , weak , did not feel well . Presented to ED with chest discomfort unchanged from his postop sternal pain trop neg , ECG showed Afib rate 105-110 started on Xarellto, still on amiodarone , and BB preop NSTEMI Aflutter / PAST MEDICAL HISTORY: CAD, diabetes, gout, hypertension, hyperlipidemia. Objective: Vital Signs - 24 hr 06/07/18 18:05 06/07/18 18:12 06/07/18 18:46 Temperature 98.2 F Pulse Rate 84 Respiratory Rate 22 Blood Pressure 199/94 H Pulse Oximetry 95 98 06/07/18 19:38 06/07/18 19:39 06/07/18 22:40 Temperature Pulse Rate 104 H 92 H 82 Respiratory Rate 18 18 20 Blood Pressure 216/103 H 189/108 H 120/63 Pulse Oximetry 96 94 L 94 L 06/08/18 00:46 06/08/18 04:00 06/08/18 05:12 Temperature 98.3 F Pulse Rate 80 81 80 Respiratory Rate 18 20 Blood Pressure 145/68 H 136/69 Pulse Oximetry 97 95 06/08/18 05:37 06/08/18 08:19 Temperature 98.4 F 98.5 F Pulse Rate 85 85 Respiratory Rate 18 18 Blood Pressure 140/75 161/91 H Pulse Oximetry 97 GENERAL: A&O x 3 SKIN: Warm and dry. sternal incision intact and well approximated HEAD: Normocephalic. EYES: No scleral icterus. No injection or drainage. NECK: Supple, trachea midline. No JVD or lymphadenopathy. CARDIOVASCULAR: irregular rate and rhythm without murmurs, gallops, or rubs. RESPIRATORY: Breath sounds equal bilaterally. No accessory muscle use. GASTROINTESTINAL: Abdomen soft, non-tender, nondistended. MUSCULOSKELETAL: No cyanosis, or edema. BACK: Nontender without obvious deformity. No CVA tenderness. Labs: Laboratory Results - last 12 hr 06/07/18 06/08/18 06/08/18 20:15 01:00 02:02 WBC RBC Hgb Hct MCV MCH MCHC RDW Plt Count MPV Neut % (Auto) Lymph % (Auto) [place] % (Auto) Eos % (Auto) Baso % (Auto) Neut # (Auto) Lymph # (Auto) [place] # (Auto) Eos # (Auto) Baso # (Auto) WBC Differential Differential Comment Sodium Potassium Chloride Carbon Dioxide Anion Gap BUN Creatinine Estimated GFR POC Glucose 197 H Random Glucose Calcium Troponin I 0.07 H 0.07 H 06/08/18 06/08/18 06/08/18 06:25 06:25 08:42 WBC 8.6 RBC 3.95 L Hgb 11.6 L Hct 34.4 L MCV 87.0 MCH 29.4 MCHC 33.8 RDW 14.1 Plt Count 542 H MPV 7.3 Neut % (Auto) 69.5 Lymph % (Auto) 13.9 [place] % (Auto) 10.8 H Eos % (Auto) 5.1 H Baso % (Auto) 0.7 Neut # (Auto) 6.0 Lymph # (Auto) 1.2 [place] # (Auto) 0.9 Eos # (Auto) 0.4 Baso # (Auto) 0.1 WBC Differential . Differential Comment Auto diff final Sodium 138 Potassium 4.4 Chloride 105 Carbon Dioxide 24.8 Anion Gap 8 BUN 19 H Creatinine 1.33 H Estimated GFR 53 L POC Glucose 154 H Random Glucose 169 H Calcium 9.0 Troponin I Result Diagrams: 06/08/18 06:25 06/08/18 06:25 Telemetry: Afib - Plan (1) S/P CABG (coronary artery bypass graft) Plan: ASA, statin BB CT chest noted labs noted stable I agree with the above assessment and plan. I will discuss the possibility of MANISH/cardioversion with Dr. Anaya. He is stable for discharge and adequately anticoagulated. (2) Diabetes (3) Hypertension (4) Atrial fibrillation Plan: agree with xakhushboo jaeger BB await further input from Dr Anaya regarding amiodarone stable to transfer back to [facility] (2) Diabetes Qualifiers: Diabetes mellitus type: type 2 (3) Hypertension Qualifiers: Hypertension type: essential hypertension Qualified Code(s): I10 - Essential (primary) hypertension
--- NOTE | 2018-06-08 09:27 | P.PN ---
Subjective Interval history: Patient is seen lying in bed. He denies any chest pain or shortness of breath. Has not noticed any palpitations or changes to heart rhythm. No nausea vomiting or diarrhea. He does report nocturia and says that they were evaluating him for UTI at rehab but he does not know what the results of that were. No fever or chills. Physical Exam Vital signs: Vital Signs 06/07/18 18:05 06/07/18 18:12 06/07/18 18:46 Temperature 98.2 F Pulse Rate 84 Respiratory Rate 22 Blood Pressure 199/94 H Pulse Oximetry 95 98 06/07/18 19:38 06/07/18 19:39 06/07/18 22:40 Temperature Pulse Rate 104 H 92 H 82 Respiratory Rate 18 18 20 Blood Pressure 216/103 H 189/108 H 120/63 Pulse Oximetry 96 94 L 94 L 06/08/18 00:46 06/08/18 04:00 06/08/18 05:12 Temperature 98.3 F Pulse Rate 80 81 80 Respiratory Rate 18 20 Blood Pressure 145/68 H 136/69 Pulse Oximetry 97 95 06/08/18 05:37 06/08/18 08:19 Temperature 98.4 F 98.5 F Pulse Rate 85 85 Respiratory Rate 18 18 Blood Pressure 140/75 161/91 H Pulse Oximetry 97 Intake & Output 06/07/18 06/08/18 06/08/18 18:59 06:59 18:59 Intake Total 240 / 240 Output Total 1175 / 1175 Balance -935 / -935 Weight 102.058 kg Intake: Oral 240 / 240 Output: Urine 1175 / 1175 Other: # Voids 2 Date of Last Bowel Movement 06/07/18 Weight On Admission 102 kg Narrative: Gen.: Well-nourished, well-developed adult male in no acute distress Head: Normocephalic. Atraumatic. EENT: Pupils equal round and reactive to light. Nose without drainage. Airway intact. Throat without injection. Cardiovascular: Regular rate and rhythm. No murmurs, rubs or gallops. Midsternal scar-healing well Respiratory: Lungs clear to auscultation bilaterally. No wheezes or rhonchi. Abdomen: Soft, nontender, nondistended. No peritoneal signs. Musculoskeletal: No gross deformities. No edema. Skin: No obvious rashes or erythema. Neuro: Sensory and motor grossly intact. Cranial nerves II through XII grossly intact. Results - Labs CBC & Chem 7: 06/08/18 06:25 06/08/18 06:25 Laboratory Results - last 24 hr 06/07/18 06/07/18 06/07/18 18:16 18:16 18:16 WBC 10.5 RBC 4.04 L Hgb 12.1 L Hct 35.2 L MCV 87.0 MCH 29.9 MCHC 34.3 RDW 13.9 Plt Count 565 H D MPV 7.5 Neut % (Auto) 76.8 H Lymph % (Auto) 10.1 [place] % (Auto) 9.4 H Eos % (Auto) 3.2 Baso % (Auto) 0.5 Neut # (Auto) 8.1 H Lymph # (Auto) 1.1 [place] # (Auto) 1.0 H Eos # (Auto) 0.3 Baso # (Auto) 0.1 WBC Differential . Differential Comment Auto diff final Sodium 137 Potassium 4.4 Chloride 103 Carbon Dioxide 24.2 Anion Gap 10 BUN 19 H Creatinine 1.45 H Estimated GFR 48 L POC Glucose Random Glucose 154 H Calcium 9.4 Magnesium 2.1 Total Bilirubin 0.4 AST 17 ALT 21 Alkaline Phosphatase 93 Total Creatine Kinase 60 Troponin I 0.06 H B-Natriuretic Peptide 220 H Total Protein 8.1 Albumin 3.4 06/07/18 06/08/18 06/08/18 20:15 01:00 02:02 WBC RBC Hgb Hct MCV MCH MCHC RDW Plt Count MPV Neut % (Auto) Lymph % (Auto) [place] % (Auto) Eos % (Auto) Baso % (Auto) Neut # (Auto) Lymph # (Auto) [place] # (Auto) Eos # (Auto) Baso # (Auto) WBC Differential Differential Comment Sodium Potassium Chloride Carbon Dioxide Anion Gap BUN Creatinine Estimated GFR POC Glucose 197 H Random Glucose Calcium Magnesium Total Bilirubin AST ALT Alkaline Phosphatase Total Creatine Kinase Troponin I 0.07 H 0.07 H B-Natriuretic Peptide Total Protein Albumin 06/08/18 06/08/18 06/08/18 06:25 06:25 08:42 WBC 8.6 RBC 3.95 L Hgb 11.6 L Hct 34.4 L MCV 87.0 MCH 29.4 MCHC 33.8 RDW 14.1 Plt Count 542 H MPV 7.3 Neut % (Auto) 69.5 Lymph % (Auto) 13.9 [place] % (Auto) 10.8 H Eos % (Auto) 5.1 H Baso % (Auto) 0.7 Neut # (Auto) 6.0 Lymph # (Auto) 1.2 [place] # (Auto) 0.9 Eos # (Auto) 0.4 Baso # (Auto) 0.1 WBC Differential . Differential Comment Auto diff final Sodium 138 Potassium 4.4 Chloride 105 Carbon Dioxide 24.8 Anion Gap 8 BUN 19 H Creatinine 1.33 H Estimated GFR 53 L POC Glucose 154 H Random Glucose 169 H Calcium 9.0 Magnesium Total Bilirubin AST ALT Alkaline Phosphatase Total Creatine Kinase Troponin I B-Natriuretic Peptide Total Protein Albumin - Imaging Impressions Chest X-Ray 06/07/18 18:12 CONCLUSION: Suspected minimal scarring or atelectasis at the lateral left lung. Thoracic Aorta CT 06/07/18 18:56 CONCLUSION: 1. No evidence for aortic dissection as questioned. 2. Very central pulmonary arteries are patent. 3. Stable focal 3 cm distal aortic aneurysm containing small to moderate amount of eccentric mural thrombus. No evidence for leak or rupture. 4. Trace left sided pleural effusion with mild bibasilar airspace disease, presumably compressive atelectasis. [place] considerations include chronic aspiration. 5. Prominent coronary artery calcifications. 6. Multiple indeterminate density bilateral cystic renal lesions which appear grossly stable in size from prior examination and therefore likely benign in etiology. 7. Mild sigmoid diverticulosis. Assessment and Plan - Plan Assessment/plan: Paroxysmal A. fib status post CABG/coronary artery disease -Cardiothoracic surgery, Dr. Leonard consulted, appreciate assistance -Initiated anticoagulation with Xarelto -Continue amiodarone, metoprolol -Telemetry -PT ordered Nocturia/dysuria -UA and culture ordered Hypertension/hypertensive urgency -Blood pressure 216/103 on arrival -Resolved with PO metoprolol -Continue home metoprolol, lisinopril SHAINA -Cr 1.45, baseline 1.2 -Monitor renal function Diabetes mellitus, last A1c 9.2 -Continue Levemir -Sliding-scale insulin -Monitor blood sugar Gout/hyperlipidemia; chronic -Continue home medications FEN Cardiac diet Electrolytes: Monitor and replete as needed Xarelto Discharge planning: Likely back to rehab
[2018-06-08] MEDS: Metoprolol Tartrate 25 MG Tablet PO SCH ×2 (09:41→20:17)
[2018-06-08 12:34] LABS: Bacteria,Urine Many /hpf; Bilirubin,Urine Negative (Negative); Clarity,Urine Hazy (Clear); Color,Urine Yellow (Yellw/Straw); Glucose,Urine (UA) 500 or Greater mg/dL (Negative); Leukocyte Esterase,Urine Trace (Negative); Nitrite,Urine Negative (Negative); Specific Gravity,Urine 1.033 (1.002-1.035)
[2018-06-09] MEDS: ALPRAZolam 0.25 MG Tablet PO SCH ×3 (01:02→06:06)
[2018-06-09] MEDS: Insulin NovoLOG Aspart Correctional Sugar Inj SQ SCH ×2 (03:30→08:04)
[2018-06-09 03:53] VITALS: O2SAT 95
--- NOTE | 2018-06-09 07:19 | P.PN ---
Subjective Interval history: Patient is seen lying in bed. Reports that he feels well. He is a little anxious about leaving. No chest pain or shortness of breath. No nausea vomiting or diarrhea. Reports some dysuria-mostly burning Physical Exam Vital signs: Vital Signs 06/08/18 08:19 06/08/18 11:04 06/08/18 11:42 Temperature 98.5 F 98.4 F Pulse Rate 85 73 76 Respiratory Rate 18 20 Blood Pressure 161/91 H 158/85 H Pulse Oximetry 97 96 06/08/18 16:36 06/08/18 20:00 06/08/18 23:25 Temperature 98.6 F 98.4 F 98 F Pulse Rate 73 79 66 Respiratory Rate 20 18 16 Blood Pressure 128/74 172/84 H 140/76 Pulse Oximetry 96 96 96 06/09/18 03:53 Temperature 98.2 F Pulse Rate 65 Respiratory Rate 18 Blood Pressure 141/75 H Pulse Oximetry 95 Intake & Output 06/08/18 06/09/18 06/09/18 18:59 06:59 18:59 Intake Total 600 / 600 480 / 480 Output Total 675 / 675 Balance 600 / 600 -195 / -195 Intake: Oral 600 / 600 480 / 480 Output: Urine 675 / 675 Other: Date of Last Bowel Movement 06/07/18 Narrative: Gen.: Well-nourished, well-developed adult male in no acute distress Head: Normocephalic. Atraumatic. EENT: Pupils equal round and reactive to light. Nose without drainage. Airway intact. Throat without injection. Cardiovascular: Regular rate and rhythm. No murmurs, rubs or gallops. Midsternal scar-healing well Respiratory: Lungs clear to auscultation bilaterally. No wheezes or rhonchi. Abdomen: Soft, nontender, nondistended. No peritoneal signs. Musculoskeletal: No gross deformities. No edema. Skin: No obvious rashes or erythema. Neuro: Sensory and motor grossly intact. Cranial nerves II through XII grossly intact. Results - Labs CBC & Chem 7: 06/08/18 06:25 06/08/18 06:25 Laboratory Results - last 24 hr 06/08/18 06/08/18 06/08/18 06:25 06:25 08:42 WBC 8.6 RBC 3.95 L Hgb 11.6 L Hct 34.4 L MCV 87.0 MCH 29.4 MCHC 33.8 RDW 14.1 Plt Count 542 H MPV 7.3 Neut % (Auto) 69.5 Lymph % (Auto) 13.9 [place] % (Auto) 10.8 H Eos % (Auto) 5.1 H Baso % (Auto) 0.7 Neut # (Auto) 6.0 Lymph # (Auto) 1.2 [place] # (Auto) 0.9 Eos # (Auto) 0.4 Baso # (Auto) 0.1 WBC Differential . Differential Comment Auto diff final Sodium 138 Potassium 4.4 Chloride 105 Carbon Dioxide 24.8 Anion Gap 8 BUN 19 H Creatinine 1.33 H Estimated GFR 53 L POC Glucose 154 H Random Glucose 169 H Calcium 9.0 Urine Color Urine Clarity Urine pH Ur Specific [place] Urine Protein Urine Glucose (UA) Urine Ketones Urine Occult Blood Urine Nitrate Urine Bilirubin Urine Urobilinogen Ur Leukocyte Esterase Urine RBC Urine WBC Urine WBC Clumps Urine Bacteria Micro UA Comment Ur Microscopic Review Urine Culture Comments 06/08/18 06/08/18 06/08/18 09:04 13:30 17:13 WBC RBC Hgb Hct MCV MCH MCHC RDW Plt Count MPV Neut % (Auto) Lymph % (Auto) [place] % (Auto) Eos % (Auto) Baso % (Auto) Neut # (Auto) Lymph # (Auto) [place] # (Auto) Eos # (Auto) Baso # (Auto) WBC Differential Differential Comment Sodium Potassium Chloride Carbon Dioxide Anion Gap BUN Creatinine Estimated GFR POC Glucose 232 H 202 H Random Glucose Calcium Urine Color Yellow Urine Clarity Hazy H Urine pH 5.0 Ur Specific [place] 1.033 Urine Protein Negative Urine Glucose (UA) 500 or greater Urine Ketones Trace H Urine Occult Blood Small H Urine Nitrate Negative Urine Bilirubin Negative Urine Urobilinogen Less than 2 Ur Leukocyte Esterase Trace H Urine RBC 2 Urine WBC 16 H Urine WBC Clumps Few H Urine Bacteria Many H Micro UA Comment Culture indicated Ur Microscopic Review Not Reportable Urine Culture Comments Culture indicated 06/08/18 06/09/18 19:57 03:31 WBC RBC Hgb Hct MCV MCH MCHC RDW Plt Count MPV Neut % (Auto) Lymph % (Auto) [place] % (Auto) Eos % (Auto) Baso % (Auto) Neut # (Auto) Lymph # (Auto) [place] # (Auto) Eos # (Auto) Baso # (Auto) WBC Differential Differential Comment Sodium Potassium Chloride Carbon Dioxide Anion Gap BUN Creatinine Estimated GFR POC Glucose 255 H 141 H Random Glucose Calcium Urine Color Urine Clarity Urine pH Ur Specific [place] Urine Protein Urine Glucose (UA) Urine Ketones Urine Occult Blood Urine Nitrate Urine Bilirubin Urine Urobilinogen Ur Leukocyte Esterase Urine RBC Urine WBC Urine WBC Clumps Urine Bacteria Micro UA Comment Ur Microscopic Review Urine Culture Comments Assessment and Plan - Plan Assessment/plan: Paroxysmal A. fib status post CABG/coronary artery disease -Cardiothoracic surgery, Dr. Leonard consulted, appreciate assistance -Initiated anticoagulation with Xarelto -Continue amiodarone, metoprolol -Telemetry -PT ordered UTI -Will treat with Bactrim DS Hypertension/hypertensive urgency -Blood pressure 216/103 on arrival -Resolved with PO metoprolol -Continue home metoprolol, lisinopril SHAINA -Cr 1.45, baseline 1.2 -Monitor renal function Diabetes mellitus, last A1c 9.2 -Continue Levemir -Sliding-scale insulin -Monitor blood sugar Gout/hyperlipidemia; chronic -Continue home medications FEN Cardiac diet Electrolytes: Monitor and replete as needed Xarelto Discharge planning: Likely back to rehab
--- NOTE | 2018-06-09 07:21 | P.DS ---
Date of admission: 06/07/18 23:19 Primary care physician: Wendie Sandoval Attending physician on discharge: Remigio Govea Anticipated date of discharge: 06/09/18 Brief History from admission: 72-year-old male with a past medical history significant for coronary artery disease, status post recent CABG, hypertension, hyperlipidemia, diabetes mellitus and gout presents to the emergency department for the evaluation of hypertension. The patient was in rehabilitation following his bypass grafting when he noted over the last 5 days he started to have chest pain that radiates to his back and down his bilateral upper extremities, nausea, dizziness and diaphoresis. He denies any shortness of breath. While in the emergency department undergoing evaluation, the patient was noted to be in atrial fibrillation with rapid ventricular response. He states he had chest pain symptoms at that time. He is currently in normal sinus rhythm, rate controlled and symptom-free. He denies any abdominal pain. No nausea/vomiting/diarrhea. No lateralizing signs/symptoms. No fever/chills. DS: Diagnosis - Discharge Diagnosis (1) CAD (coronary artery disease), kiana coronary artery Status: Chronic (2) UTI (urinary tract infection) Status: Acute (3) Hypertension Status: Chronic DS: Medications - Discharge Medications Prescriptions: rivaroxaban [Xarelto] 15 mg PO BID #30 tab sulfamethoxazole-trimethoprim 1 tab PO Q12HR #5 tab DS: Summary Hospital Course: Patient is a 72-year-old male who recently underwent CABG and was at rehab. He experienced chest pain and hypertension so returned to the emergency room. Hypertension and chest pain resolved without intervention. He was found to have a UTI and was treated with Bactrim. Returned to rehab. - Time Spent with Patient Total time spent providing and/or coordinating discharge services: Less than 30 minutes - Quality: VTE Deep Vein Thrombosis/Pulmonary Embolism Present on Admission: No Exam Vital signs: Vital Signs 06/08/18 08:19 06/08/18 11:04 06/08/18 11:42 Temperature 98.5 F 98.4 F Pulse Rate 85 73 76 Respiratory Rate 18 20 Blood Pressure 161/91 H 158/85 H Pulse Oximetry 97 96 06/08/18 16:36 06/08/18 20:00 06/08/18 23:25 Temperature 98.6 F 98.4 F 98 F Pulse Rate 73 79 66 Respiratory Rate 20 18 16 Blood Pressure 128/74 172/84 H 140/76 Pulse Oximetry 96 96 96 06/09/18 03:53 Temperature 98.2 F Pulse Rate 65 Respiratory Rate 18 Blood Pressure 141/75 H Pulse Oximetry 95 Intake & Output 06/08/18 06/09/18 06/09/18 18:59 06:59 18:59 Intake Total 600 / 600 480 / 480 Output Total 675 / 675 Balance 600 / 600 -195 / -195 Intake: Oral 600 / 600 480 / 480 Output: Urine 675 / 675 Other: Date of Last Bowel Movement 06/07/18 Narrative: Gen.: Well-nourished, well-developed adult male in no acute distress Head: Normocephalic. Atraumatic. EENT: Pupils equal round and reactive to light. Nose without drainage. Airway intact. Throat without injection. Cardiovascular: Regular rate and rhythm. No murmurs, rubs or gallops. Midsternal scar-healing well Respiratory: Lungs clear to auscultation bilaterally. No wheezes or rhonchi. Abdomen: Soft, nontender, nondistended. No peritoneal signs. Musculoskeletal: No gross deformities. No edema. Skin: No obvious rashes or erythema. Neuro: Sensory and motor grossly intact. Cranial nerves II through XII grossly intact. Results Procedures completed during hospitalization: none Labs on day of discharge: Labs from last 24 hours 06/09/18 06/08/18 06/08/18 03:31 19:57 17:13 WBC RBC Hgb Hct MCV MCH MCHC RDW Plt Count MPV Neut % (Auto) Lymph % (Auto) [place] % (Auto) Eos % (Auto) Baso % (Auto) Neut # (Auto) Lymph # (Auto) [place] # (Auto) Eos # (Auto) Baso # (Auto) WBC Differential Differential Comment Sodium Potassium Chloride Carbon Dioxide Anion Gap BUN Creatinine Estimated GFR POC Glucose 141 H 255 H 202 H Random Glucose Calcium Urine Color Urine Clarity Urine pH Ur Specific [place] Urine Protein Urine Glucose (UA) Urine Ketones Urine Occult Blood Urine Nitrate Urine Bilirubin Urine Urobilinogen Ur Leukocyte Esterase Urine RBC Urine WBC Urine WBC Clumps Urine Bacteria Micro UA Comment Ur Microscopic Review Urine Culture Comments 06/08/18 06/08/18 06/08/18 13:30 09:04 08:42 WBC RBC Hgb Hct MCV MCH MCHC RDW Plt Count MPV Neut % (Auto) Lymph % (Auto) [place] % (Auto) Eos % (Auto) Baso % (Auto) Neut # (Auto) Lymph # (Auto) [place] # (Auto) Eos # (Auto) Baso # (Auto) WBC Differential Differential Comment Sodium Potassium Chloride Carbon Dioxide Anion Gap BUN Creatinine Estimated GFR POC Glucose 232 H 154 H Random Glucose Calcium Urine Color Yellow Urine Clarity Hazy H Urine pH 5.0 Ur Specific [place] 1.033 Urine Protein Negative Urine Glucose (UA) 500 or greater Urine Ketones Trace H Urine Occult Blood Small H Urine Nitrate Negative Urine Bilirubin Negative Urine Urobilinogen Less than 2 Ur Leukocyte Esterase Trace H Urine RBC 2 Urine WBC 16 H Urine WBC Clumps Few H Urine Bacteria Many H Micro UA Comment Culture indicated Ur Microscopic Review Not Reportable Urine Culture Comments Culture indicated 06/08/18 06/08/18 06:25 06:25 WBC 8.6 RBC 3.95 L Hgb 11.6 L Hct 34.4 L MCV 87.0 MCH 29.4 MCHC 33.8 RDW 14.1 Plt Count 542 H MPV 7.3 Neut % (Auto) 69.5 Lymph % (Auto) 13.9 [place] % (Auto) 10.8 H Eos % (Auto) 5.1 H Baso % (Auto) 0.7 Neut # (Auto) 6.0 Lymph # (Auto) 1.2 [place] # (Auto) 0.9 Eos # (Auto) 0.4 Baso # (Auto) 0.1 WBC Differential . Differential Comment Auto diff final Sodium 138 Potassium 4.4 Chloride 105 Carbon Dioxide 24.8 Anion Gap 8 BUN 19 H Creatinine 1.33 H Estimated GFR 53 L POC Glucose Random Glucose 169 H Calcium 9.0 Urine Color Urine Clarity Urine pH Ur Specific [place] Urine Protein Urine Glucose (UA) Urine Ketones Urine Occult Blood Urine Nitrate Urine Bilirubin Urine Urobilinogen Ur Leukocyte Esterase Urine RBC Urine WBC Urine WBC Clumps Urine Bacteria Micro UA Comment Ur Microscopic Review Urine Culture Comments - Impressions ITS Impressions Chest X-Ray 06/07/18 18:12 CONCLUSION: Suspected minimal scarring or atelectasis at the lateral left lung. Thoracic Aorta CT 06/07/18 18:56 CONCLUSION: 1. No evidence for aortic dissection as questioned. 2. Very central pulmonary arteries are patent. 3. Stable focal 3 cm distal aortic aneurysm containing small to moderate amount of eccentric mural thrombus. No evidence for leak or rupture. 4. Trace left sided pleural effusion with mild bibasilar airspace disease, presumably compressive atelectasis. [place] considerations include chronic aspiration. 5. Prominent coronary artery calcifications. 6. Multiple indeterminate density bilateral cystic renal lesions which appear grossly stable in size from prior examination and therefore likely benign in etiology. 7. Mild sigmoid diverticulosis. Discharge Plan - Discharge Disposition Patient Disposition: Discharge to SNF - Discharge Condition Condition: Stable - Discharge Order Discharge Orders: Discharge Order (Routine); Ordered 06/09/18 Ordered By: Laure Renner - Discharge Details Discharge Comment: DC on BactrimDS - 1st dose before going. Follow up on culture sensitivity. Outpatient BMP ordered for 06/12/18 - Physicians Team Attending Provider: Remigio Govea Other Providers: [employer],Insurance ; Renita Leonard MD ; [facility],Agency
[2018-06-09 08:59] VITALS: BP 189/89; RESP 16; TEMP 98.4
[2018-06-09] MEDS ORDERED: Amiodarone 200 MG Tablet PO SCH (09:00)
[2018-06-09] MEDS: Lisinopril 10 MG Tablet PO SCH (09:52)
[2018-06-09] MEDS: Senna/Docusate Sodium 8.6/50 MG Tablet PO SCH (09:52)
[2018-06-09] MEDS: Rivaroxaban 15 MG Tablet PO SCH (09:53)
[2018-06-09] MEDS: Metoprolol Tartrate 25 MG Tablet PO SCH (09:53)
[2018-06-09] MEDS: Insulin Detemir Inj 1,000 UNIT/10 ML Vial SQ SCH (09:53)
[2018-06-09] MEDS: Allopurinol 300 MG Tablet PO SCH (09:53)
[2018-06-09 10:45] VITALS: PULSE 93
== END 2018-06-09 13:04 ==
LOC: NEDA 17:42 → NEPC 17:42 → NEDA 06-08 00:58 → NEPFCDU 06-08 01:13
PROVIDERS: ADMIT Internal Medicine; ATTEND Internal Medicine